=== PATIENT | male | born 1950 | race Caucasian/White ===

== ENCOUNTER 2024-12-16 20:36 | Inpatient (IN) | payer MEDICARE, OTHER, SELFPAY ==
[2024-12-16] VITALS (12 sets, daily range): BP systolic 125–158; BP diastolic 67–85; BMI 38.8; BMI 38.4
--- NOTE | 2024-12-16 17:56 | ED.GENMED ---
Addendum entered and electronically signed by João Larson DO 12/16/24 19:06:
Update reevaluation patient much improved, I first evaluated him work of breathing down, oxygenating well on a nonrebreather mental status appears improved, antibiotics and diuretic have been ordered
Original Note:
History of Present Illness
General
Chief Complaint: Breathing Problem
Source: patient and family
Exam Limitations: altered mental status
Time Seen by Provider: 12/16/24 17:53
Nursing documentation reviewed up to this point in time: agreed with
History of Present Illness
History of Present Illness:
74-year-old male shortness of breath onset unclear presents in extremis he was prior bypass surgery has lower extremity edema sats in the low 70s
6 PM daughter at bedside yesterday she got a call from her brother patient had some fever and chills shortness of breath yesterday, today she saw the patient she had a home pulse ox was in the 70s and appeared tired
s/p bypass surgery, may not have taken his lasix
Past History
Past History
ED Past Medical History: CAD
ED Past Surgical History: Cardiac
Family History
Family History: Unable to obtain
Review of Systems
Review of Systems
Unable to obtain full review of systems at this time due to: due to acuity
Phy Exam
Physical Exam
Physical Exam:
Physical Exam
General: 74-year-old male severe respiratory
Neck: No jaundice
Heart: Tachycardic mediastinal
Lungs: Tachypneic crackles
Abdomen: Nontender
Neuro: Globally weak
Skin: no rash
Psychiatric: Unable to assess
Extremities: Edema is present
Scores
Heart Failure Risk
Heart Failure Risk Score: Yes
History of Stroke or TIA: No
History of intubation for respiratory distress: No
Heart rate on ED arrival >/= 110: Yes
SaO2 <90% on arrival on room air: Yes
HR >/=110 during 3min walk test (or too ill to perform test): Yes
ECG has acute ischemic changes: No
Urea >/=12mmol/L (BUN 33.6mg/dL): No
Serum CO2>/=35mmol/L: No
Troponin I or T elevated to DC Level (0.4mg/dL): No
NT-proBNP >/=5,000ng/L (5,000pg/ml): Yes
HF Risk Score: 4
Admission Status: HIGH RISK 26.1% Consider SNF treatment or admission to hospital
Course
Orders/Labs/Results
Orders:
Orders
12/16/24 17:52
Electrocardiogram (*1) Urgent
Reason for Study: Shortness of Breath
Portable Chest Xray [CR Chest Portable - 1 View] Stat
Comment:
Reason For Exam: sob
Reason Study Needs to be Portable: Patient Unstable
12/16/24 17:53
EKG- Treatment ONCE
12/16/24 17:57
Arterial Blood Gas Urgent
%Oxygen/Room Air: 96%/15L non rebreather
Complete Blood Count/No Diff Urgent
Comprehensive Metabolic Panel Urgent
NT-proBNP Urgent
Troponin I Urgent
12/16/24 17:59
Bipap [RESP] Urgent
Patient to use own unit?: No
Inspiratory Pressure (cm H2O): 12
Expiratory Pressure (cm H2O): 5
12/16/24 18:03
COVID-19 Antigen Urgent
Source: Nasal Swab
12/16/24 18:04
Influenza A+B Rapid Molecular Urgent
[facility] Source: Nasal Swab
Specimen Description:
12/16/24 18:15
Blood Culture Q30M
[facility] Source: Blood/Venous
Specimen Description:
12/16/24 18:38
CefTRIAXone [Rocephin] 1,000 mg IV NOW STA
Ipratropium/Albuterol Sulfate [Duoneb] 3 ml INH R NOW ONE
12/16/24 18:45
Blood Culture Q30M
[facility]A Source: Blood/Venous
Specimen Description:
12/16/24 18:54
Furosemide [Lasix] 60 mg IV NOW STA
Abnormal Lab Results
12/16/24
17:57
RBC 4.06 L 10^6/uL
(4.70-6.10)
Hgb 11.7 L g/dL
(13.0-18.0)
Hct 34.7 L %
(39.0-52.0)
MPV 11.8 H fL
(7.4-10.4)
pH 7.33 L
(7.35-7.45)
pO2 156 H mmHg
(83-108)
HCO3 18.5 L mmol/L
(21-28)
ABG O2 Sat (Measured) 99.7 H %
(94-98)
Carbon Dioxide 20 L mmol/L
(22-30)
Glucose 317 H mg/dl
(70-99)
Troponin I 0.090 H* ng/ml
12/16/24 17:57
12/16/24 17:57
Vital Signs
Initial and Last Documented VS:
Initial Vital Signs
Pulse Resp BP Pulse Ox
104 43 158/85 75
12/16/24 17:54 12/16/24 17:54 12/16/24 17:54 12/16/24 17:54
Last Documented Vital Signs
Temp Pulse Resp BP Pulse Ox
99.3 F 92 34 134/75 97
12/16/24 18:02 12/16/24 18:45 12/16/24 18:45 12/16/24 18:45 12/16/24 18:45
MDM/Problems Addressed
Differential Diagnosis Includes:
Heart failure pulm anemia pneumonia PE pneumothorax
MDM/Problems Addressed:
Shortness of breath
Chronic conditions affecting care: CAD
Acute Exacerbation and/or Progression of Chronic Illness: CAD
*Body Work Auto Trimmer Interpretation
Rate: normal and tachycardiac
Interpretation: normal
Heart Rate: 118
Rhythm: sinus
*Critical Care Note
Total Time (30-74mins, 75-104mins- exclusive of procedures): 30
Update Note
Update Note:
645 patient proved with nonrebreather ABG noted labs are noted did report fever chills per family, cultures have been sent will start on ceftriaxone, proBNP noted will give a dose of diuretic,
ED Attending Note
-
Portions of this chart may have been created with voice recognition software.� Occasional wrong word or��sound alike� substitutions may have occurred due to the inherent limitations of voice recognition software.
Discharge Plan
Departure
Patient Disposition: Admit
Date of Disposition: 12/16/24
Time of Disposition: 18:55
Admit to: Telemetry
Presentation/result/management discussed w/ accepting MD/DO: Hospitalist
Patient with high blood pressure during this ER visit?: Yes
Condition: Fair
Covid-19: Negative COVID-19
Discharge Problem:
Acute hypoxic respiratory failure
Interventions
Interventions:
*General Assessment Last Done: 12/16/24 18:02
*ED- Fall Risk Assessment Last Done: 12/16/24 18:02
*ED COVID-19 Vaccine History Last Done: 12/16/24 18:02
ED- Cardiac Assessment Last Done: 12/16/24 18:09
ED- Pulmonary Assessment Last Done: 12/16/24 18:09
Discharge Date and Time
Print Language: YORUBA
--- NOTE | 2024-12-16 18:01 | EDRN ---
Dr. Larson in room w/ pt at this time.
[2024-12-16 18:15] LABS: Hematocrit 34.7 % (39.0-52.0); Hemoglobin 11.7 g/dL (13.0-18.0); Mean Corp Hgb Conc. 33.7 g/dL (33.0-37.0); Mean Corpuscular Hgb 28.8 pg (27.0-31.0); Mean Corpuscular Volume 85.5 fL (80.0-94.0); Mean Platelet Volume 11.8 fL (7.4-10.4); Platelet Count 206 10^3/uL (130-400); Red Blood Cell Count 4.06 10^6/uL (4.70-6.10); Red Cell Dist. Width 13.9 % (11.5-14.5); White Blood Cell Count 10.6 10^3/uL (4.8-10.8)
[2024-12-16 18:25] LABS: B.E. -6.7 mmol/L; HCO3 18.5 mmol/L (21-28); O2 Saturation % 99.7 % (94-98); PCO2 35 mmHg (35-48); PO2 156 mmHg (83-108); pH 7.33 (7.35-7.45)
--- NOTE | 2024-12-16 18:25 | EDRN ---
Daughter and granddaughter in room w/pt at this time.
[2024-12-16 18:36] LABS: ALT (SGPT) 22 U/L (0-50); AST (SGOT) 27 U/L (17-59); Albumin 4.7 g/dl (3.5-5.0); Alkaline Phosphatase 77 U/L (38-126); Blood Urea Nitrogen 19 mg/dl (9-20); Calcium 9.6 mg/dl (8.4-10.2); Carbon Dioxide 20 mmol/L (22-30); Chloride 99 mmol/L (98-107); Estimated Creatinine Clearance 73 ml/min; Glucose 317 mg/dl (70-99); Potassium 4.4 mmol/L (3.5-5.1); Sodium 135 mmol/L (135-145); Total Bilirubin 1.2 mg/dl (0.2-1.3); Total Protein 7.8 g/dl (6.3-8.2); eGFR > 60.00
--- NOTE | 2024-12-16 18:45 | EDRN ---
Pt moved from room #40 to room #26 at this time.
[2024-12-16 18:54] LABS: NT-proBNP 4660 pg/ml
--- NOTE | 2024-12-16 19:14 | HPS.HSE ---
Family Physician
-
Family Physician:
Chief Complaint
-
Shortness of breath
History of Present Illness
This is a 74-year-old who has a history of CAD status post CABG 13 years ago, diabetes not on insulin, hypertension, who presents to the emergency department with shortness of breath.
Patient reports that he has been having a cough for about 1 week. He reports the cough is minimally productive. He reported that he had a fever 1 day ago. He reports household members with been having coughs as well. He reported that he followed
up for a cough with his PMD this morning. He was started on antibiotics and cough medications. Upon arrival home his daughter noticed that he was completely out of breath with severe dyspnea on exertion and even unable to talk and was sent to the
emergency department.
Patient reports that he has chronic lower extremity edema which appears to have not changed recently. Is unable to tell me when I set any acute weight gain. He denies having any chest pain. Denies orthopnea or PND. He is a non-smoker and denies
any history of asthma or COPD.
He reports intermittent compliance with diuretics due to polyuria when he takes them.
In the emergency department he was febrile with a temp of 99.3, he was hypoxic and currently on 10 L nonrebreather satting 99%. Blood pressure was 134/70 with a pulse of 92 and x-ray. Rate is currently 26. ECG shows no acute ischemic changes with
normal sinus rhythm and sinus arrythmia. Initial troponin 0.09. BNP elevated at 4600. Xray with radiographic findings highly suggestive of interstitial pulmonary edema pattern. Bilateral interstitial pneumonia is a differential consideration, but
felt to be less likely. Current ABG with mild metabolic acidosis
Medical History
Past Medical History
Past Medical History: Reports HTN, Hypercholesterolemia and NIDDM
Additional Past Medical History:
CAD status post CABG
Past Surgical History: Reports Cardiac (CABG)
Social History
Tobacco: Non-smoker
Alcohol: Occasional
Drug: None
Personal: Single
Living: With Family
Employment: Retired
Family History
Family History: Not pertinent
Allergies / Home Medications
Allergies reflects when Allergies were last updated in [employer].
Home Medications with original date entered in [employer]
Allergy/Medication List:
Allergies
Allergy/AdvReac Type Severity Reaction Status Date / Time
No Known Allergies Allergy Verified 12/16/24 17:54
Review of Systems
-
History Source: Patient
Constitutional: Reports Fever
EENT: Reports No Symptoms
Respiratory: Reports Trouble Breathing
Cardiac: Reports No Symptoms
Abdomen/GI: Reports No Symptoms
: Reports No Symptoms
Musculoskeletal: Reports No Symptoms
Skin: Reports No Symptoms
Neurological: Reports No Symptoms
Endocrine: Reports No Symptoms
Hematologic/Lymphatic: Reports No Symptoms
Psych: Reports No Symptoms
Physical Exam
Vital Signs
Vital Signs
Temp Pulse Resp BP Pulse Ox
99.3 F 92 34 134/75 97
12/16/24 18:02 12/16/24 18:45 12/16/24 18:45 12/16/24 18:45 12/16/24 18:45
Physical Exam
General: Well Developed, Well Nourished, No Apparent Distress and Comfortable
HEENT: NormoCephalic, Anicteric, Moist mucous membranes and Atraumatic
Respiratory: Crackles
Cardiac: S1/S2 and Regular Rhythm
Breast: Deferred by me
GI: Soft, Non Tender and Normal Bowel Sounds
Rectal: Deferred by Provider
Genito-urinary: Deferred by me
Musculoskeletal: No Clubbing, No Cyanosis, Edema, Left Lower Extremity and Edema, Right Lower Extremity
Skin: Warm
Neuro: AO x 3 and Nonfocal/grossly intact
Hematologic/Lymphatic: No Lymphadenopathy
Psych: Calm
Laboratory Results
-
12/16/24 17:57
12/16/24 17:57
Laboratory Results
pH 7.33 (7.35-7.45) L 12/16/24 17:57
pCO2 35 mmHg (35-48) 12/16/24 17:57
pO2 156 mmHg (83-108) H 12/16/24 17:57
HCO3 18.5 mmol/L (21-28) L 12/16/24 17:57
Total Bilirubin 1.2 mg/dl (0.2-1.3) 12/16/24 17:57
AST 27 U/L (17-59) 12/16/24 17:57
ALT 22 U/L (0-50) 12/16/24 17:57
Alkaline Phosphatase 77 U/L (38-126) 12/16/24 17:57
Troponin I 0.090 ng/ml H* 12/16/24 17:57
Data Reviewed
-
Diagnostic Radiology: Image Personally Visualized and interpreted and Report Reviewed by me
Medical Tests (Nuc Med, Echo, EKG etc): Image Personally Visualized and interpreted
Lab Data: Labs Reviewed by me
Old Records: Reviewed
Impression/Plan
-
IMPRESSION:
74-year-old with past medical history significant for CAD status post CABG, CHF, hypertension hyperlipidemia and usb-wpktqdu-xrbjeowlf diabetes who has had a cough for about 1 week and presented emergency department with acute shortness of breath
and dyspnea on exertion with hypoxia requiring nonrebreather at this time. X-ray shows bilateral infiltrates consistent with interstitial pulmonary edema. He has bilateral lower extremity swelling, BNP is elevated at 4887 troponin 0.09 without any
acute ischemia on ECG. ABG shows a blood gas of 7.33/33/18. Suspect pneumonia complicated by acute on chronic CHF.
PLAN:
1. Possible PNA - Cough x 1 week which could be from CHF but reports a fever yesterday and low grade temps here. Denies recent admissions to the hospital
- admit to IMU due to O2 requirements, titrate to midflow as tolerated
- blood cultures sent
- covid/flu pending
- IV ceftriaxone/azithromycin appropriate for now
- cough suppression and nebs prn
2. CHF - Interstitial edema, weight gain, peripheral edema. Non-compliance with lasix 40 daily. Says had w/u at [facility] by Dr. Shannon with echo and stress. Says there is some reduced flow but stress was non-ischemic
- telemetry
- cycle enzymes as below
- lasix 60 iv given in ED,
- continue lasix 40 iv bid
- daily weights and i/os
- will hold lisinopril pending stable bp
- continue bblockade
- echo in am to eval valves
- cardiology consult
3. Trop elevation - NIMI suspected, h/o CAD s/p CABG no stents. On plavix.
- asa 324 x 1 now
- continue plavix and statin
- cycle enzymes, started heparin gtt for elevation, remain w/o chest pain
4. DM II -
- hold metformin
- continue glimepride
- sliding scale insulin
- a1c
DVT PPX - heparin gtt
Code status - Full Code
[2024-12-16] MEDS: LASIX 60 MG IV (19:24)
[2024-12-16] MEDS: ROCEPHIN 1000 MG IV (19:24)
[2024-12-16] MEDS: DUONEB 3 ML INH (19:26)
[2024-12-16 19:50] LABS: COVID-19 Antigen Negative (Negative)
[2024-12-16] MEDS: ZITHROMAX INFUSION 250 IV (19:52)
[2024-12-16] MEDS: ZAROXOLYN 5 MG PO (23:36)
[2024-12-16 23:41] LABS: Glucose - Point of Care 276 mg/dl (70-99)
[2024-12-16] MEDS: LIPITOR 40 MG PO (23:42)
[2024-12-17] VITALS (13 sets, daily range): BP systolic 115–149; BP diastolic 65–86; BMI 37.8
[2024-12-17] MEDS: LASIX 60 MG IV (01:08)
[2024-12-17 01:50] LABS: APTT 36.2 Sec (23.4-35.0)
[2024-12-17 02:05] LABS: Hematocrit 27.8 % (39.0-52.0); Hemoglobin 9.6 g/dL (13.0-18.0); Mean Corp Hgb Conc. 34.5 g/dL (33.0-37.0); Mean Corpuscular Hgb 28.8 pg (27.0-31.0); Mean Corpuscular Volume 83.5 fL (80.0-94.0); Mean Platelet Volume 11.4 fL (7.4-10.4); Platelet Count 141 10^3/uL (130-400); Red Blood Cell Count 3.33 10^6/uL (4.70-6.10); Red Cell Dist. Width 13.9 % (11.5-14.5); White Blood Cell Count 6.8 10^3/uL (4.8-10.8)
[2024-12-17] MEDS: HEPARIN 25000 UNITS/250 ML IV ×2 (02:28→23:54)
--- NOTE | 2024-12-17 02:40 | PTCARENOTE ---
Rec'd pt from ED RN with only NRB in place. RT placed pt on 15L MF upon admit to this unit. Pt reports work of breathing is much improved from prior, however continues with tachypnea. O2 titrated to 13L, pt 96%. Trop increased from previous, FOREST FI[employer] MANAGEMENT OFFICER
notified. STAT dose IV lasix given per NOV. Heparin gtt started per NOV. Call mckinney within reach. Care ongoing.
[2024-12-17 06:03] LABS: Blood Urea Nitrogen 22 mg/dl (9-20); Calcium 9.4 mg/dl (8.4-10.2); Carbon Dioxide 27 mmol/L (22-30); Chloride 101 mmol/L (98-107); Estimated Creatinine Clearance 79 ml/min; Glucose 179 mg/dl (70-99); HDL Cholesterol 47 mg/dl; LDL Cholesterol, Calculated 81 mg/dl; Magnesium 1.3 mg/dl (1.6-2.3); Phosphorus 3.7 mg/dl (2.5-4.5); Potassium 3.6 mmol/L (3.5-5.1); Sodium 139 mmol/L (135-145); Total Cholesterol 162 mg/dl (50-199); Triglyceride 170 mg/dl (10-149); Very Low Density Lipoprotein 34 mg/dl (0-30); eGFR > 60.00
[2024-12-17] MEDS: ASPIRIN 325 MG PO (06:46)
[2024-12-17] MEDS: MAGNESIUM SULFATE 102 GRAMS IV (06:46)
[2024-12-17 06:50] LABS: Hepatitis C Antibody Negative (Negative)
--- NOTE | 2024-12-17 08:07 | CON.CAR ---
Addendum entered and electronically signed by John Paul Hough MD 12/17/24 11:41:
I saw and examined the patient.
The BATTER MIXER HELPER's note was reviewed and I agree with the note.
Comment: 72-year-old male (known to Dr. Shannon, his primary vocal artist), with CAD (prior CABG), HTN, HLD, NIDDM, and presumed heart failure, who presented to the emergency department the chief complaint of shortness of breath. Began suddenly in
the last 1 to 2 days. He does report he had a low-grade temp and there are 3 sick contacts at home so he assumed he had a virus. He was found to be acutely hypoxic on arrival. He is now feeling better, continued on oxygen through the nasal
cannula, but still with consistent coughing and shortness of breath. He denies any chest pain but never had chest pain prior to even his CABG. He reports recent testing with his outpatient vocal artist in September. He thinks he was told he would
need possible intervention. He is not aware of a low ejection fraction or even of the term. On exam, he is in moderate respiratory distress when asked to take deep breaths. He coughs extensively with rhonchi and rales diffusely bilaterally.
Regular rate and rhythm normal S1-S2. Abdomen is obese. 1+ pitting edema up to the mid calf. On my review, chest x-ray shows diffuse interstitial pulmonary edema. EKG showed sinus tachycardia with PVCs ST changes inferolaterally aVR is up. No
prior for comparison. Today's EKG shows sinus rhythm with sinus arrhythmia, ST depressions are improved. Slight nonspecific changes persist. Prolonged QTc at seen. Echocardiogram shows mildly reduced left ventricular ejection fraction of 45 to
60%. Hypokinesis of the basal to mid septal, inferior and mid to distal inferolateral bernstein. Stage II diastolic dysfunction with mild pulmonary hypertension. Labs are notable for troponin up to 16.5 which is the peak. Hemoglobin 11.7 on
admission now 9.6 repeat 9.8. Assessment: Acute hypoxic respiratory failure in the setting of heart failure with mildly reduced ejection fraction. Acute coronary syndrome. Acute on chronic anemia. Coronary artery disease status post CABG.
Possible viral pna but flu and COVID negative. Plan: Continue with IV diuresis. This will need intensive monitoring. Continue metoprolol, TESS inhibitor and Nitropaste. Will plan for cardiac cath tomorrow with R/C as he is unable to lie flat
currently. Hgb repeated and stable and he is pale but this appears chronic. Will ask CM to roberts Entresto and SGLT 2i. Will request recent records from [facility].
D/w Dr Drew. Patient is agreeable to cath tomorrow
Original Note:
Consultation
Consultation Request
Date/Time Consultation Requested: 12/17/2024 02:10
Date/Time Consultation Performed: 12/17/2024 08:00
Requesting Provider: Dr. Dowd
Performing Provider: RICHELLE Cartagena for Dr. Hough
Reason for Consultation: NSTEMI, Heart failure
Medical History
-
Chief Complaint: Shortness of breath
History of Present Illness:
João Collier is a 72-year-old male (known to Dr. Shannon, his primary vocal artist), with CAD (prior CABG), HTN, HLD, NIDDM, and presumed heart failure, who presented to the emergency department the chief complaint of shortness of breath.
Yesterday, he saw his PCP and endorsed low-grade temp along with cough and congestion and was given a prescriptions for antibiotics. He quickly deteriorated at home. He was found to have an SpO2 less than 70% by his daughter. Initially he did not
want to present to the emergency room but continued to decompensate and was agreeable. In triage, he was found to have an SpO2 of 75% on room air. He has been admitted for acute hypoxic respiratory failure. Chest x-ray suggestive of interstitial
pulmonary edema. He was negative for COVID-19 and influenza. His initial troponin was 0.090 on arrival along with a proBNP of 4660. At approximately 5 AM this morning it was 16.500. EKG with lateral ST abnormalities. He has no chest pain.
Prior to his CABG he was asymptomatic. He had 'abnormal tests' and was found to need bypass. He is on the hospitalist service and cardiology was consulted for heart failure management.
Past Medical History
Past Medical History: CAD, HTN, Hypercholesterolemia and NIDDM
Past Surgical History: Cardiac (CABG)
Social History
Tobacco: Non-Smoker
Alcohol: None
Drug: None
Living: With Family (Son)
Employment: Retired
Family History
Family History: Reviewed & Not Pertinent
Allergies / Home Medications
Allergy/AdvReac Type Severity Reaction Status Date / Time
No Known Allergies Allergy Verified 12/16/24 17:54
�Medication �Instructions �Recorded �Confirmed �Type
acetaminophen 500 mg tablet 1,000 mg PO Q6HPRN PRN mild pain 12/16/24 12/16/24 History
(Tylenol Extra Strength)
amlodipine 5 mg tablet 5 mg PO DAILY 12/16/24 12/16/24 History
atorvastatin 40 mg tablet 40 mg PO HS 12/16/24 12/16/24 History
clopidogrel 75 mg tablet 75 mg PO DAILY 12/16/24 12/16/24 History
fenofibric acid 35 mg tablet 35 mg PO DAILY 12/16/24 12/16/24 History
finasteride 5 mg tablet 5 mg PO DAILY 12/16/24 12/16/24 History
furosemide 40 mg tablet 40 mg PO DAILY 12/16/24 12/16/24 History
glimepiride 4 mg tablet 4 mg PO BID 12/16/24 12/16/24 History
isosorbide mononitrate 60 mg 60 mg PO DAILY 12/16/24 12/16/24 History
tablet,extended release 24 hr
lisinopril 10 mg tablet 10 mg PO DAILY 12/16/24 12/16/24 History
meloxicam 15 mg tablet 15 mg PO DAILY 12/16/24 12/16/24 History
metformin 1,000 mg tablet 1,000 mg PO BID 12/16/24 12/16/24 History
metoprolol succinate 100 mg 100 mg PO DAILY 12/16/24 12/16/24 History
tablet,extended release 24 hr
oxybutynin chloride 10 mg 10 mg PO DAILY 12/16/24 12/16/24 History
tablet,extended release 24 hr
pioglitazone 30 mg tablet 30 mg PO DAILY 12/16/24 12/16/24 History
semaglutide 0.25 mg or 0.5 mg (2 0.5 mg SC WE 12/16/24 12/16/24 History
mg/3 mL) subcutaneous pen injector
(Ozempic)
sertraline 100 mg tablet 100 mg PO DAILY 12/16/24 12/16/24 History
tamsulosin 0.4 mg capsule 0.4 mg PO DAILY 12/16/24 12/16/24 History
Review of Systems
-
History Source: Patient
All other systems: Negative unless noted
Constitutional: No Symptoms
EENT: No Symptoms
Respiratory: Trouble Breathing
Cardiac: No Symptoms
Abdomen/GI: No Symptoms
: No Symptoms
Musculoskeletal: No Symptoms
Skin: No Symptoms
Neurological: No Symptoms
Endocrine: No Symptoms
Hematologic/Lymphatic: No Symptoms
Physical Exam
Vital Signs
Temp Pulse Resp BP Pulse Ox
99.2 F 97 26 149/82 95
12/17/24 04:50 12/17/24 06:00 12/17/24 06:00 12/17/24 04:00 12/17/24 06:04
Lab Results
12/17/24 01:12
12/17/24 05:15
Troponin I 16.500 ng/ml H* D 12/17/24 05:15
Udh-W-Huquudhunxp Pept 4660 pg/ml 12/16/24 17:57
Physical Exam
General: Well Developed, Well Nourished, No Apparent Distress and Comfortable
HEENT: Normocephalic, Anicteric and Moist Mucous Membranes
Respiratory: Crackles and Accessory Resp Muscle Use
Cardiac: S1/S2, Regular Rhythm and Peripheral Edema
Breast: Deferred by me
GI: Soft, Non Tender, Non Distended and Normal Bowel Sounds
Rectal: Deferred by Provider
Genito-urinary: No Costovertebral Tender
Musculoskeletal: No Clubbing, No Cyanosis and No Edema
Skin: Warm and Dry
Neuro: AO x 3
Hematologic/Lymphatic: No Lymphadenopathy
Psych: Calm
Impression / Plan
-
I/P: 74M with CAD (prior CABG), HTN, HLD, NIDDM, and presumed heart failure, presented with shortness of breath and hypoxia.
Outpatient vocal artist: Dr. Shannon
Acute hypoxic respiratory failure
-He is requiring 10 L nasal cannula mid flow, improved from 15L overnight
-Negative: COVID-19, influenza
-CXR appears to be pulmonary edema
Heart failure, presumed HFpEF, acute on chronic
-Diuresis with furosemide 40 mg IV twice daily, this requires intensive monitoring, question of adherence at home
-Consider SGLT2i
-Trend daily weight, I/O, and BMP with diuresis
-Heart failure education
NSTEMI
-Chest pain-free
-ASA 324 mg given in ER, continue 81 mg daily
-Continue heparin drip, he received a bolus in the emergency department
-Lateral EKG changes with a troponin of 16
-Urgent echocardiogram being arranged
CAD
-Never had anginal symptoms, prior CABG grafts unknown
-Continue medical therapy and risk factor modification
Hypertension
-Multidrug hypertension, home amlodipine on hold
Anemia - H&H repeat
HLD, LDL above goal on atorvastatin, possible nonadherence
NIDDM, HgbA1c pending, per primary service
Obesity, on Ozempic in the outpatient setting
Data Reviewed
-
EKG: Report Reviewed by me
Radiology: Report Reviewed by me
Labs: Labs Reviewed by me
Old Records: Requested
--- NOTE | 2024-12-17 08:42 | W.PN.HOSP.TC ---
Addendum entered and electronically signed by Yair Drew MD 12/17/24 14:57:
Seen and examined by me independently in collaboration with the medical staff physician Dr. Hammond.
Lab data and imaging data reviewed.
Addendum as below :
Patient admitted with acute hypoxic respiratory failure in the setting of acute heart failure and non-ST elevation HI. Patient without chest pain but had progressive shortness of breath. Without any acute respiratory distress. On nasal cannula.
Bilateral occasional wheeze with basilar crackles. Bilateral lower extremity edema 2+ noted. Patient with a history of CAD status post CABG. Apparently recent stress test in September of this year was abnormal and was due to get further testing.
Continue with IV heparin and IV Lasix. Appreciate cardiology input.
Afebrile and normal white count but procalcitonin is elevated. Pt has symptoms of URTI recently and was started on abx as OP. Flu and COVID neg.Currently his symptom is more of left facial pain. Says he lost part of 2-3 teeth on left upper teeth.
His teeth has been thinning out lately. Left mid maxillary area tenderness noted. Teeth 12 fractured it looks like with no crown. Mild halitosis. Mild thickening of the gum around. Will narrow abx to Unasyn. OMFS consulted -recommends OP follow
up.Clinically doubt pneumonia. No focal consolidation.
Total time spent on today's encounter was 52 minutes which included time spent in counseling the patient/family regarding diagnosis and treatment plan as listed above, goals of care, and symptom management. Case was discussed with nursing staff,
specialists, and care coordinators/case management. All labs and imaging personally reviewed by me. Remainder the time spent in detailed review of previous records, lab data, imaging, and other medical provider documentation.
Original Note:
Today's Communication/Plan
-
Continue heparin, continue monitoring heart rhythm and rate. Continue antibiotics. Will continue IV Lasix.
Assessment / Plan
Assessment / Plan
Assessment:
74-year-old male with a past medical history of CAD status post CABG 13 years ago, bjn-uqzntpi-wdjyxouwd diabetes, hypertension presented to the [facility] emergency department on 12/16/2024 due to recent increased shortness of breath.
Patient has been having worsening cough for about a week and reported having a fever a day ago. Yesterday patient had gone to his primary care doctor for evaluation of his recent upper respiratory symptoms and was started on antibiotics. When he
got home patient's daughter noticed that he was very short of breath and took him to the emergency department. In the emergency department he had fever with a temperature of 99.3, markedly hypoxic and was started on oxygen supplementation with 10 L
of oxygen. Patient's ECG showed sinus tachycardia with PVCs, ST changes inferolaterally. However patient's troponin levels continue to increase. Chest x-ray done in the ED showed marked pulmonary edema. Cardiology was consulted and patient was
started on IV Lasix. Patient was admitted to the IMU for further management as he required increased supplemental oxygen. Patient underwent echocardiogram which showed mild reduction in systolic function.
Chest X-Ray (12/16/2024):
Cardiac silhouette size appears enlarged. Diffusely increased interstitial markings with indistinctness of the central pulmonary vasculature. Radiographic findings are highly suggestive of interstitial edema pattern, most likely on the basis of
congestive heart failure.
Differential consideration of bilateral interstitial pneumonia, felt to be less likely.
Mildly reduced left ventricular systolic function. LV ejection fraction is 45-
50% by visual estimate.
Hypokinesis of the basal to mid septal, inferior and mid to distal
inferolateral wall.
Stage II diastolic dysfunction suggestive of abnormal relaxation and increased
filling pressures.
Mild pulmonary hypertension.
No prior study available for comparison.
Plan:
# Acute hypoxic respiratory failure secondary to heart failure with mildly reduced ejection fraction
-Chest x-ray showed interstitial edema, recent weight gain and peripheral edema along with noncompliance with his Lasix 40mg daily
-BNP elevated at 4887
-Echo as above
-Cardiology consulted, input appreciated
-Continue IV Lasix 40 mg twice daily
-Daily weights and I/O's
-Continue lisinopril
-Continue metoprolol XL 100 mg
-Continue pioglitazone
-Supplemental oxygen as needed, will try to wean off as possible
# Possible pneumonia due to recent upper respiratory symptoms
-Had a low-grade temperature in the ED, also reported fever yesterday
-Blood cultures were sent, pending
-COVID-negative, flu negative
-Antibiotics continue until cultures come back
-No leukocytosis, less likely pneumonia
-Cough suppression and nebs as needed
# Elevated troponins possibly secondary to coronary artery disease
-Continue to trend upwards, latest reading was 16.5
-Patient on Plavix, given dose of aspirin 325
-Placed on heparin drip
-No chest pain
-Cardiology consulted, input appreciated
-Plan for cardiac cath tomorrow
-Will continue metoprolol, TESS inhibitor and nitroglycerin paste as per cardiology
-LDL cholesterol 81, triglycerides a bit elevated at 170
-Continue trending troponins
# Fql-rynixsq-xhgrhiikv diabetes type 2
-Continue glimepiride, holding metformin still
-Sliding scale insulin, Accu-Cheks
-HbA1c Pending
# Hypomagnesemia
-Repleted
-Monitor and replete as necessary
Full code
DVT prophylaxis: Heparin GTT
Anticipated Discharge: > 48 hours
Subjective/Interval History
-
Date of Service: December 17, 2024
Patient says that he is feeling a bit worse from yesterday. Continues to require supplemental oxygen, 10 L at the moment. Overall not feeling so well, reports no chest pain at this time. Does report shortness of breath. Does not report any fever
or chills since being in the hospital.
Objective Data
-
Labs:
Laboratory Results
12/17/24 12/17/24 12/17/24
01:12 05:15 08:30
WBC 6.8
Hgb 9.6 L
Hct 27.8 L
Plt Count 141 D
APTT 36.2 H Pending
Sodium 139
Potassium 3.6
Chloride 101
Carbon Dioxide 27
BUN 22 H
Creatinine 1.0
Glucose 179 H
Calcium 9.4
Vital Signs:
Vital Signs
Temp Pulse Resp BP Pulse Ox
99.2 F 97 26 149/82 95
12/17/24 04:50 12/17/24 06:00 12/17/24 06:00 12/17/24 04:00 12/17/24 06:04
I&O
12/16/24 12/17/24 12/18/24
06:59 06:59 06:59
Output Total 1600 / 1600
Balance -1600 / -1600
Review of Systems
-
History Source: Patient
Constitutional: Denies Fever or Chills
EENT: Reports No Symptoms Reported
Respiratory: Reports Cough, Trouble Breathing and Wheezing
Cardiac: Denies Chest Pain, Palpitations or Syncope
Abdomen/GI: Denies Abdominal Pain, Nausea or Vomiting
Genitourinary: Reports No Symptoms
Musculoskeletal: Reports Edema (Bilateral lower extremity edema)
Skin: Reports No Symptoms
Neuro: Reports No Symptoms
Physical Exam
-
General: Well Developed, Well Nourished, Respiratory Distress, Appears in Distress and Conversant
HEENT: Normocephalic, Atraumatic and Oxygen (Requiring 10 L of mid flow)
Respiratory: Crackles and Non Labored Respirations
Cardiac: S1/S2, Irregular Rhythm and Tachycardic
GI: Soft, Nontender and Nondistended
Musculoskeletal: Edema, Right Lower Extrem (Trace edema) and Edema, Left Lower Extrem (Trace edema)
Skin: Warm
Neuro: Awake, Alert, Oriented and AO x 3
Psych: Calm
Data Reviewed
-
Medical Tests (Nuc Med, Echo etc): Report Reviewed by me, Discussed with Physician, Discussed with Nurse and Discussed with Patient
Labs: Labs Reviewed by me, Discussed with Physician, Discussed with Nurse and Discussed with Patient
[2024-12-17 08:48] LABS: Glucose - Point of Care 180 mg/dl (70-99)
[2024-12-17] MEDS: NOVOLOG FLEXPEN-LOW RESISTANCE 1 UNITS SC (09:05)
[2024-12-17] MEDS: PLAVIX 75 MG PO (09:05)
[2024-12-17] MEDS: LASIX 40 MG IV ×2 (09:05→16:59)
[2024-12-17] MEDS: DITROPAN 5 MG PO ×2 (09:06→19:42)
[2024-12-17] MEDS: TOPROL XL 100 MG PO (09:07)
[2024-12-17] MEDS: FLOMAX 0.4 MG PO (09:07)
[2024-12-17] MEDS: PROSCAR 5 MG PO (09:07)
[2024-12-17] MEDS: ZESTRIL PO (09:09)
[2024-12-17] MEDS: ACTOS PO (09:10)
[2024-12-17] MEDS: AMARYL PO (09:10)
[2024-12-17] MEDS: TRICOR 48 MG PO (09:16)
--- NOTE | 2024-12-17 09:32 | CARDSERVLU ---
Echocardiogram with Lumason completed after protocol screening completed. Allergies verified.
Patent IV site: __RAC___
IV site flushed with 0.9% NaCl pre and post administration.
Diluted bolus method utilized to enhance visualization of ventricular bernstein.
Total volume given: ___2_ mL
Patient tolerated all procedures well without complications.
[2024-12-17 09:55] LABS: APTT 36.8 Sec (23.4-35.0)
[2024-12-17 10:12] LABS: Procalcitonin 0.72 ng/ml (0.0-0.25)
[2024-12-17 10:41] LABS: Glycohemoglobin (HgbA1c) 6.5 % (4.0-5.6)
[2024-12-17] MEDS: NITRO-BID 0.5 INCH TOPICAL ×3 (10:54→23:07)
[2024-12-17 11:18] LABS: Hematocrit 28.6 % (39.0-52.0); Hemoglobin 9.8 g/dL (13.0-18.0)
--- NOTE | 2024-12-17 12:08 | PTCARENOTE ---
Received this am, AAOx3, denies pain. Lungs diminished throughout, +productive cough/ yellow sputum, ROYAL / rest with talking. Using urinal with increased exertion. IV Lasix administered and placed 25 condom cath for energy conservation. Stat
labs completed, PCXR, ECHO as well. IV Heparin gtt infusing per protocol. NTP placed RCW. Kept NPO until seen by providers- now able to eat. Son at bedside, updated family on poc.
[2024-12-17 12:33] LABS: Glucose - Point of Care 225 mg/dl (70-99)
[2024-12-17] MEDS: NOVOLOG FLEXPEN-LOW RESISTANCE 2 UNITS SC (13:34)
--- NOTE | 2024-12-17 13:36 | CM ---
Patient with Dx CHF, NSTEMI. O2 9L---> 4L today. Receiving IV Abx, IV Lasix, Heparin gtt. Plan cardiac cath tomorrow.
Met with patient who resides with his son, son's girlfriend and her 5 children, 1 grand-child, in a 1 story house with no outside steps.
The patient was independent in ADLs and ambulation without using an assistive device.
DME - [facility]
PCP - Abdifatah Parker
Pharmacy - [facility], [place] [place], [place]
Patient agrees to VN for SN for HF education and chooses [facility] - referral placed.
CM Consult: Roberts checks Entresto, Farxiga & Jardiance
Per Dr Hough only need to check Entresto & Farxiga
E-scripts sent to pharmacy.
Spoke with pharmacist, [facility]; roberts for Farxiga $115.85/month and Entresto $136.21/month. Patient is not eligible for Free Month or Copay cards under his Part D plan.
Spoke with patient about cost of meds: Mr Collier is declining both Farxiga and Entresto due to cost. His current meds are already > $500/month. Provided drug prices as per pharmacist at his [facility]: Farxiga $115.85/month and Entresto $136.21/month.
Patient says he was already aware he is not eligible for Free Month or Copay cards.
Eileen Hough & Rajendra made aware patient declining both Farxiga and Entresto due to cost.
Plan follow up with [facility] for acceptance.
Plan watch for home O2 needs.
[2024-12-17] MEDS: AMARYL 4 MG PO (17:03)
[2024-12-17] MEDS: UNASYN IV ×2 (17:03→21:05)
[2024-12-17 17:08] LABS: APTT 37.9 Sec (23.4-35.0)
[2024-12-17 17:45] LABS: Glucose - Point of Care 302 mg/dl (70-99)
[2024-12-17] MEDS: NOVOLOG FLEXPEN-LOW RESISTANCE 4 UNITS SC (18:01)
--- NOTE | 2024-12-17 19:08 | PTCARENOTE ---
Weaned to 5L maintaining sao2 95%. Rhythm unchanged on tele SR/SA. Remains on IV Heparin- subtherapeutic- increased per protocol. Urine output >2500ml this shift via condom cath. Feels much better this pm- less dyspneic and his overall coloring
improved to pink from pale. Family updated.
[2024-12-17] MEDS: ROBITUSSIN 100 MG PO (20:01)
[2024-12-17] MEDS: LIPITOR 40 MG PO (21:03)
[2024-12-17 21:37] LABS: Glucose - Point of Care 262 mg/dl (70-99)
--- NOTE | 2024-12-17 22:40 | PTCARENOTE ---
Care continues. Heparin gtt maintained per protocols. Maintained on supplemental O2. Denies complaints at this time. CC remains in place for frequency. PRN cough medicine given with relief. Call mckinney within reach.
[2024-12-17 23:38] LABS: APTT 44.8 Sec (23.4-35.0)
[2024-12-18] VITALS (26 sets, daily range): BP systolic 95–147; BP diastolic 56–82; BMI 36.7
[2024-12-18] MEDS: UNASYN IV (03:33)
[2024-12-18] MEDS: TYLENOL 650 MG PO ×3 (03:48→21:56)
[2024-12-18] MEDS: ROBITUSSIN 100 MG PO ×3 (03:49→14:47)
--- NOTE | 2024-12-18 05:28 | PTCARENOTE ---
Pt c/o L jaw, hand and b/l foot pain. Treated with tylenol per NOV. Continues to deny chest pain.
[2024-12-18] MEDS: NITRO-BID 0.5 INCH TOPICAL ×3 (05:38→17:03)
--- NOTE | 2024-12-18 06:43 | PTCARENOTE ---
Pt with brief episode of desat to 85% on 4L while sleeping. O2 returned to 98% when woken up from sleep. Maintained on 4L
[2024-12-18 06:48] LABS: Blood Urea Nitrogen 32 mg/dl (9-20); Calcium 9.4 mg/dl (8.4-10.2); Carbon Dioxide 33 mmol/L (22-30); Chloride 98 mmol/L (98-107); Estimated Creatinine Clearance 78 ml/min; Glucose 150 mg/dl (70-99); Potassium 3.2 mmol/L (3.5-5.1); Sodium 138 mmol/L (135-145); eGFR > 60.00
--- NOTE | 2024-12-18 08:03 | W.PN.CD ---
Today's Communication / Plan
-
Cardiac catheterization today.
Further medication titration following this procedure.
Anemia workup.
Impression / Plan
-
Impression/Plan: 74M with CAD (prior CABG), HTN, HLD and NIDDM admitted with NSTEMI and new HFmEF (LVEF 45-50%).
#Hypoxic respiratory failure
-Acute, improving.
-He is requiring 4 L nasal cannula mid flow.
-SARS-CoV-2 negative, influenza negative.
-CXR shows pulmonary edema, but also an opacity in the suprahilar right upper lobe. This will need CT evaluation and follow up as there is concern for potential malignancy.
#HFmEF
-Acute, threat to life, requires intensive monitoring.
-LVEF 40-50%.
-Continue diuresis with furosemide 40 mg IV twice daily.
-There is a question of adherence at home.
-Daily weights.
-Replace K+. Goal K > 4, Mg > 2, Ca > 8 and PO4 > 2.5.
-GDMT as hemodynamics will tolerate. SGLT2i and ARNi are cost prohibitive.
-Discontinue amlodipine.
-Continue metoprolol and lisinopril. Start spironolactone 12.5 mg daily after cardiac catheterization.
#NSTEMI/CAD
-Acute, threat to life.
-History of CAD s/p CABG (he reports 5 jumps, unknown anatomy, but they did use a left radial graft).
-Chest pain-free.
-Troponin peaked at 16.4.
-ASA 324 mg given in ER, continue 81 mg daily.
-OMT/GDMT as hemodynamics will tolerate.
-Cardiac catheterization today.
#Hypertension
-Chronic, multidrug, stable.
-Home amlodipine on hold.
#Anemia
-Unknown duration.
-Normal MCV.
-Check Fe studies, B12, folate, thiamine, reticulocyte count/index, heme-occult.
#HLD
-Chronic, stable.
-Total cholesterol = 162, LDL = 81, HDL = 47, Triglycerides = 170.
-LDL above goal on atorvastatin, possible nonadherence.
-Goal LDL < 55, Triglycerides < 150.
#NIDDM
-Chronic, stable.
-HgbA1c 6.5%.
-Management per primary service.
-Patient will continue to benefit from GLP-1 analog.
#Obesity
-Chronic.
-Semaglutide as noted.
Outpatient customer service manager: Dr. Shannon
Subjective/Interval History:
Oxygen reduced to 4LNC overnight. Brief hypoxia while sleeping.
Weight down 3.4 kg from yesterday (109.5 --> 106.1).
Hbg down to 9.8, stable from 11.7.
K+ down to 3.2.
DATA:
Echocardiogram, 12/17/2024:
CONCLUSIONS
Mildly reduced left ventricular systolic function. LV ejection fraction is 45-
50% by visual estimate.
Hypokinesis of the basal to mid septal, inferior and mid to distal
inferolateral wall.
Stage II diastolic dysfunction suggestive of abnormal relaxation and increased
filling pressures.
Mild pulmonary hypertension.
No prior study available for comparison.
CXR, 12/17/2024:
IMPRESSION:
1. MILD ACUTE INTERSTITIAL and ALVEOLAR CARDIOGENIC PULMONARY EDEMA.
2. Mild cardiomegaly.
3. Previous CABG surgery.
4. 3.8 cm asymmetric opacity in the suprahilar right upper lobe. Diagnostic possibilities are (1) right upper lobe lung cancer, (2) asymmetric pulmonary edema, or (3) infectious or inflammatory pneumonitis.
Physical Exam
Vital Signs/Labs
Vital Signs
Temp Pulse Resp BP Pulse Ox
36.3 C 77 25 144/75 85
12/18/24 07:49 12/18/24 06:00 12/18/24 06:00 12/18/24 06:00 12/18/24 06:00
12/16/24 12/17/24 12/18/24
11:59 11:59 11:59
Actual Weight 109.5 kg 106.1 kg
12/17/24 11:09
12/18/24 06:08
APTT 55.0 Sec (23.4-35.0) H 12/18/24 06:08
Magnesium 1.3 mg/dl (1.6-2.3) L 12/17/24 05:15
Triglycerides 170 mg/dl (10-149) H 12/17/24 05:15
LDL Cholesterol, Calc 81 mg/dl 12/17/24 05:15
VLDL Cholesterol, Calc 34 mg/dl (0-30) H 12/17/24 05:15
HDL Cholesterol 47 mg/dl 12/17/24 05:15
12/16/24
17:57
Ika-E-Loshxbeumzj Pept 4660
LAB Results
12/16/24 12/16/24 12/17/24
17:57 23:29 05:15
Troponin I 0.090 H* 6.580 H* D 16.500 H* D
12/17/24 12/17/24
09:33 16:45
Troponin I 16.000 H* 13.500 H*
Physical Exam
Constitutional: No acute distress and Comfortable
EENT: Anicteric and Moist mucous membranes
Cardiovascular: Rhythm & rate is regular, Pedal edema is absent, JVD pressure is normal, S1S2 is normal and Murmur/rub/gallop absent
Respiratory: Respiratory effort normal and Other (Decreased throughout.)
GI: Soft, Distention absent, Flat, Non tender and Normal bowel sounds
Neuro/Psych: AO x 3
Data Reviewed
-
Date of Service: December 18, 2024
Medical Decision Making: Reviewed Test Results, Independent Historian Assessment and Test Interpretation
EKG: Tracing Personally Visualized and interpreted and Report Reviewed by me
Echo: Report Reviewed by me
X-Ray/CT/US/MRI/NUC/PET: Image Personally Visualized and interpreted and Report Reviewed by me
Labs: Labs Reviewed by me
[2024-12-18] MEDS: AMARYL 4 MG PO ×2 (08:13→17:03)
[2024-12-18] MEDS: PLAVIX 75 MG PO (08:13)
[2024-12-18] MEDS: FLOMAX 0.4 MG PO (08:13)
[2024-12-18] MEDS: ZESTRIL 10 MG PO (08:13)
[2024-12-18] MEDS: TRICOR 48 MG PO (08:13)
[2024-12-18] MEDS: LASIX 40 MG IV ×2 (08:14→15:45)
[2024-12-18] MEDS: DITROPAN 5 MG PO ×2 (08:14→20:32)
[2024-12-18] MEDS: PROSCAR 5 MG PO (08:14)
[2024-12-18] MEDS: KCL 270 MEQ IV (08:14)
[2024-12-18] MEDS: TOPROL XL 100 MG PO (08:14)
[2024-12-18] MEDS: ACTOS 30 MG PO (08:14)
[2024-12-18] MEDS: NOVOLOG FLEXPEN-LOW RESISTANCE SC (08:46)
--- NOTE | 2024-12-18 08:53 | W.PN.HOSP.TC ---
Addendum entered and electronically signed by Yair Drew MD 12/18/24 14:23:
Seen and examined by me independently in collaboration with the medical affairs leader Dr. Hammond.
Lab data and imaging data reviewed.
Addendum as below :
Patient with improved symptoms of shortness of breath and also much improved hypoxia. Currently on 3 L of oxygen. Chest is clear. Improved lower extremity edema. No chest pain.
Continue with IV diuresis.
Continue with IV heparin for non-ST ration MT. For cardiac catheterization today.
He had a repeat chest x-ray done yesterday which raises the concern about a right upper lobe opacity. Clinically without fever or white count on admission. I see procalcitonin elevation. He had a prodrome of respiratory illness. Cannot rule out
community-acquired pneumonia. We will treat with ceftriaxone and doxycycline for now and follow the chest x-ray with diuresis. If rapid improvement with diuresis then de-escalate antibiotics.
He had a loss of left upper tooth with still persistent and maxillary tenderness. Obtain a CT of the sinuses to evaluate if any deeper infection.
Total time spent on today's encounter was 52 minutes which included time spent in counseling the patient/family regarding diagnosis and treatment plan as listed above, goals of care, and symptom management. Case was discussed with nursing staff,
specialists, and care coordinators/case management. All labs and imaging personally reviewed by me. Remainder the time spent in detailed review of previous records, lab data, imaging, and other medical provider documentation.
Original Note:
Today's Communication/Plan
-
Patient to undergo cardiac cath today. Monitor for any worsening pain, breathing. Wean off supplemental oxygen as possible
Assessment / Plan
Assessment / Plan
Assessment:
74-year-old male with a past medical history of CAD status post CABG 13 years ago, iyg-lvnfade-xupzwcijh diabetes, hypertension presented to the [facility] emergency department on 12/16/2024 due to recent increased shortness of breath.
Patient has been having worsening cough for about a week and reported having a fever a day ago. Yesterday patient had gone to his primary care doctor for evaluation of his recent upper respiratory symptoms and was started on antibiotics. When he
got home patient's daughter noticed that he was very short of breath and took him to the emergency department. In the emergency department he had fever with a temperature of 99.3, markedly hypoxic and was started on oxygen supplementation with 10 L
of oxygen. Patient's ECG showed sinus tachycardia with PVCs, ST changes inferolaterally. However patient's troponin levels continued to increase. Chest x-ray done in the ED showed marked pulmonary edema. Cardiology was consulted and patient was
started on IV Lasix. Patient was admitted to the IMU for further management as he required increased supplemental oxygen. Patient underwent echocardiogram which showed mild reduction in systolic function. Patient was scheduled to undergo cardiac
catheterization to determine if he has any acute coronary artery disease.
Chest X-Ray (12/16/2024):
Cardiac silhouette size appears enlarged. Diffusely increased interstitial markings with indistinctness of the central pulmonary vasculature. Radiographic findings are highly suggestive of interstitial edema pattern, most likely on the basis of
congestive heart failure.
Differential consideration of bilateral interstitial pneumonia, felt to be less likely.
Mildly reduced left ventricular systolic function. LV ejection fraction is 45-
50% by visual estimate.
Hypokinesis of the basal to mid septal, inferior and mid to distal
inferolateral wall.
Stage II diastolic dysfunction suggestive of abnormal relaxation and increased
filling pressures.
Mild pulmonary hypertension.
No prior study available for comparison.
Plan:
# Acute hypoxic respiratory failure secondary to heart failure with mildly reduced ejection fraction
-Chest x-ray showed interstitial edema, recent weight gain and peripheral edema along with noncompliance with his Lasix 40mg daily
-BNP elevated at 4887
-Echo as above
-Cardiology consulted, input appreciated
-Continue IV Lasix 40 mg twice daily
-Daily weights and I/O's
-Continue lisinopril
-Continue metoprolol XL 100 mg
-Continue pioglitazone
-Supplemental oxygen as needed, will try to wean off as possible
# Possible pneumonia due to recent upper respiratory symptoms
-Had a low-grade temperature in the ED, also reported fever yesterday
-Afebrile since admission
-Blood cultures negative
-COVID-negative, flu negative
-Transition to azithromycin and ceftriaxone for possible pneumonia
-Will repeat chest x-ray in a day, if resolution seen, most likely due to pulmonary edema rather than pneumonia and will stop antibiotics at that time
-No leukocytosis, less likely pneumonia
-Procalcitonin 0.72 (elevated)
-Cough suppression and nebs as needed
# Elevated troponins possibly secondary to coronary artery disease
-Continue to trend upwards, latest reading was 16.5
-Patient on Plavix, given dose of aspirin 325
-Placed on heparin drip
-No chest pain
-Cardiology consulted, input appreciated
-Plan for cardiac cath today
-Will continue metoprolol, TESS inhibitor and nitroglycerin paste as per cardiology
-LDL cholesterol 81, triglycerides a bit elevated at 170
-Continue trending troponins
# Possible abscess in the left mid maxillary area
-Contacted OMFS yesterday, was recommended to follow-up with outpatient setting
-Patient was given information and will follow-up with him in outpatient setting
-Will be continuing ceftriaxone and azithromycin
-Will get CT sinuses to check for any drainable abscesses
# Jdq-frinubr-tbjzengql diabetes type 2
-Continue glimepiride, holding metformin still
-Sliding scale insulin, Accu-Cheks
-HbA1c 6.5%
# Hypomagnesemia
-Repleted
-Monitor and replete as necessary
Full code
DVT prophylaxis: Heparin GTT
Anticipated Discharge: 24 - 48 hours
Subjective/Interval History
-
Date of Service: December 18, 2024
Patient says that there is some improvement in his condition however he reports some pain in his bilateral lower extremities and left hand. Says they are most likely musculoskeletal related, intensity is not very high. Otherwise her still reports
no chest pain, still requiring supplemental oxygen support. No fever or chills overnight.
Objective Data
-
Labs:
Laboratory Results
12/17/24 12/18/24 12/18/24
23:14 06:08 12:40
APTT 44.8 H 55.0 H Pending
Sodium 138
Potassium 3.2 L
Chloride 98
Carbon Dioxide 33 H
BUN 32 H
Creatinine 1.0
Glucose 150 H
Calcium 9.4
Vital Signs:
Vital Signs
Temp Pulse Resp BP Pulse Ox
97.4 F 70 27 144/72 97
12/18/24 07:49 12/18/24 08:14 12/18/24 08:00 12/18/24 08:14 12/18/24 08:11
I&O
12/17/24 12/18/24 12/19/24
06:59 06:59 06:59
Intake Total 1700 / 1700
Output Total 1600 / 1600 3975 / 3975
Balance -1600 / -1600 -2275 / -2275
Review of Systems
-
History Source: Patient
Constitutional: Denies Fever or Chills
EENT: Reports Mouth Pain (Teeth pain)
Respiratory: Reports Cough, Trouble Breathing and Wheezing
Cardiac: Denies Chest Pain, Palpitations or Syncope
Abdomen/GI: Denies Abdominal Pain, Nausea or Vomiting
Genitourinary: Reports No Symptoms
Musculoskeletal: Reports Muscle Pain (Bilateral lower extremities, left hand) and Edema (Bilateral lower extremity edema)
Skin: Reports No Symptoms
Neuro: Reports No Symptoms
Physical Exam
-
General: Well Developed, Well Nourished, Respiratory Distress, Appears in Distress and Conversant
HEENT: Normocephalic, Oxygen (Down to 3L supplemental oxygen) and Other (Cracked frontal teeth, possible abscess in left mid maxillary area as tenderness is noted, T12 fracture and mild thickening of the gum)
Respiratory: Crackles and Non Labored Respirations
Cardiac: Regular Rhythm (Sinus rhythm), S1/S2 and Tachycardic
GI: Soft, Nontender and Nondistended
Musculoskeletal: Edema, Right Lower Extrem (2+) and Edema, Left Lower Extrem (2+)
Skin: Warm
Neuro: Awake, Alert, Oriented and AO x 3
Psych: Calm
Data Reviewed
-
Labs: Labs Reviewed by me, Discussed with Physician, Discussed with Nurse and Discussed with Patient
--- NOTE | 2024-12-18 09:58 | PTCARENOTE ---
Verbal report given to lab clerk RN. Patient transferred to lab clerk by 2 lab clerk RN's. Patient transferred on heart monitor.
--- NOTE | 2024-12-18 10:27 | CM ---
Reviewed the chart notes. Plan for heart cath today. LUCINA spoke with Jeremie vasquez RN. Dimitrios requested a copy of the patient's face sheet be sent. Copy sent via [facility]. CM continues to be available to patient/family and is monitoring
medical plan for needs at discharge.
Plan: Discharge plans will depend on the patient's progress.
--- NOTE | 2024-12-18 11:23 | ITS.CL.CATH ---
[facility] Managing Director - Catheterization
Cardiac Catheterization
Procedure Report:
CARDIAC CATHETERIZATION REPORT
Date of Procedure: 12/18/2024
Referring: Fely Hough M.D.
INDICATION: Non-ST elevation myocardial infarction, new heart failure.
PROCEDURE:
1. Left heart catheterization.
2. Coronary angiography.
3. Bypass angiography.
A total of 41 minutes of procedural/moderate sedation was utilized. An independent medical scientist was present to assist with and help manage the patient's level of consciousness and physiologic status.
ACCESS:
1. 6 [place] right common femoral artery using a modified Seldinger technique with a micropuncture kit under ultrasound guidance. Ultrasound image obtained.
CATHETERS:
1. 5 [place]ian JL 4.
2. 5 [place]ian JR4.
3. 5 [place]ian VICENTE.
4. 5 [place]ijian multipurpose.
5. 5 [place]ian AL-1.
HEMODYNAMIC DATA
Weight (kg): 105.7
AO (s/d/x, mmHg): 125/61/85
LV (s/x mmHg): 128/21
LEFT VENTRICULOGRAPHY: Not performed.
CORONARY ANGIOGRAPHY
Dominance: Right.
Left Main: Normal size, bifurcating vessel. There is significant calcification without obvious stenosis.
LAD: Normal size vessel giving rise to 3 diagonals. D1 and D2 are small to medium size vessels. D3 is a large sized vessel supplying a significant amount of the anterolateral wall. The LAD is diffusely diseased in its proximal and midportion,
becoming chronically totally occluded immediately after the origin of the second diagonal. There is a 70% lesion after the origin of the third diagonal. The LAD is supplied by a patent ALATORRE graft. A graft is present supplying the third diagonal.
Ramus: Congenitally absent.
Circumflex: Nondominant vessel. The vessel is densely calcified and chronically totally occluded in its proximal margin. A graft is present supplying the obtuse marginal.
RCA: Normal size, dominant vessel. The vessel is severely, diffusely diseased and chronically totally occluded in its midportion. The RPDA is supplied by collaterals from the LAD.
BYPASS GRAFT ANGIOGRAPHY
ALATORRE to LAD: Normal size graft with end-to-side anastomosis to the distal LAD. There is no evidence of stenosis or graft degeneration.
LRA to OM: Normal size graft with end-to-side anastomosis to the obtuse marginal. The graft is chronically totally occluded at the aorta but backfills from a Y graft supplying the first diagonal.
SVG to D1: Normal size graft with Y anastomosis from the left radial artery graft and end-to-side anastomosis to the third diagonal. There is no evidence of stenosis or graft degeneration.
SVG to RCA: Chronically totally occluded at its origin.
SVG to unknown: Chronically totally occluded at its origin.
INTERVENTION(S)
None.
Closure Device: 6 [place]ijian Angio-Seal.
Radiation (mGy): 1111.59
DAP (cm2.Gy): 79.0148
Fluoroscopy time (minutes): 10.9
CONCLUSIONS
1. Right dominant circulation with severe, multivessel disease, status post CABG (ALATORRE to LAD, LRA to OM, SVG Y graft off of LRA to D1, SVG to RPDA, SVG to unknown) with a patent ALATORRE graft and chronic total occlusion of all the aortic grafts at
their origin, but patent LRA and SVG Y graft with complicated flow pattern detailed below. The LAD is chronically diffusely diseased in its proximal midportion, ultimately chronically totally occluded after the small second diagonal, the circumflex
is chronically totally occluded in its proximal margin and the RCA is occluded at its midportion. There is an additional 70% lesion in the distal LAD, distal to the origin of D3 but proximal to the anastomosis of the ALATORRE graft.
2. The SVG to the RCA and the SVG to unknown artery are chronically totally occluded. The left radial artery is chronically totally occluded at its origin but patent in its proximal margin, including the Y graft origin to the first diagonal. The
patient's coronary blood flow is complicated and proceeds as follows: The ALATORRE graft supplies the LAD which backfills the third diagonal (through a 70% LAD stenosis). The SVG to the third diagonal is subsequently filled retrograde back to the level
of the chronic total occlusion of the left radial artery graft anastomosis. The left radial artery graft is subsequently filled from flow from the diagonal and supplies the obtuse marginal. The RPDA is supplied by collaterals from the left
circulation.
3. Moderately elevated filling pressures (LVEDP = 21 mmHg at 105.7 kg).
RECOMMENDATIONS:
1. Expectant management after cardiac catheterization via right common femoral approach.
2. Limited weight bearing for one week.
3. Given the highly complex nature of the patient's coronary artery disease, I recommend medical management at this time, including OMT/GDMT as hemodynamics will tolerate.
4. Any intervention would be extreme risk as our options would include retrograde treatment of the 70% LAD lesion to allow for better backfilling of the patent grafts through the third diagonal versus attempted SP[employer]UG TESTER revascularization of the third
diagonal through the [place] LAD, allowing the 70% distal LAD lesion to maintain patency of the ALATORRE graft.
5. Continue diuresis given residual moderately elevated filling pressures.
Copy to: Fely Hough M.D., Abdifatah Parker M.D.
Bulmaro Melissa, , FACC, FACP
--- NOTE | 2024-12-18 11:49 | PTCARENOTE ---
Patient arrived back to IMU post cardiac cath. R groin site bandage clean dry and intact. No hematoma felt. R dorsal pedis pulse present with doppler. HOB <30 degrees. Care ongoing
[2024-12-18] MEDS: ROCEPHIN 1000 MG IV (11:58)
[2024-12-18] MEDS: STERILE WATER FOR INJECTION 10 ML IV (11:58)
[2024-12-18] MEDS: ZITHROMAX 252.5 MG IV (11:59)
[2024-12-18] MEDS: NOVOLOG FLEXPEN-LOW RESISTANCE 2 UNITS SC (12:04)
[2024-12-18 12:13] LABS: Glucose - Point of Care 213 mg/dl (70-99)
[2024-12-18 13:56] LABS: Magnesium 1.4 mg/dl (1.6-2.3); Phosphorus 3.9 mg/dl (2.5-4.5)
[2024-12-18] MEDS: MAGNESIUM SULFATE 100 IV (14:51)
[2024-12-18 15:20] LABS: Blood Urea Nitrogen 33 mg/dl (9-20); Calcium 9.1 mg/dl (8.4-10.2); Carbon Dioxide 35 mmol/L (22-30); Chloride 95 mmol/L (98-107); Estimated Creatinine Clearance 78 ml/min; Glucose 300 mg/dl (70-99); Potassium 3.7 mmol/L (3.5-5.1); Sodium 138 mmol/L (135-145); eGFR > 60.00
--- NOTE | 2024-12-18 15:28 | PTCARENOTE ---
Patient AOx3. Patient has flat affect. 3L midflow with SpO2 greater than 92%. NSR with frequent PAC's on monitor. BP stable. +2 pitting B/L LE edema. Dry cough. PRN Robitussin given per order. Condom cath draining yellow urine. Post cardiac cath
documentation/assessment completed see 'worklist'. Patient tolerating diet. Call mckinney within reach, bed in lowest position, and bed of wheels locked.
--- NOTE | 2024-12-18 17:19 | PTCARENOTE ---
Verbal report given to Qian DOMINGO in IVU. Patient transferred via stretcher and patient belongings transferred with patient.
--- NOTE | 2024-12-18 17:43 | PTCARENOTE ---
Rec'd pt from IMU. Report rec'd from Sherrie DOMINGO. Pt able to ambulate from stretcher w/ RW and assist x1. Pt on 3L midflow and sating 98%. Pt weaned to 2L NC O2 and sating 98%. Pt has no complaints/discomfort at this time. Oriented to room. Currently
OOB in chair; call mckinney w/in reach.
[2024-12-18 17:52] LABS: Glucose - Point of Care 292 mg/dl (70-99)
[2024-12-18] MEDS: NOVOLOG FLEXPEN-MODERATE RESISTANCE 5 UNITS SC (18:35)
--- NOTE | 2024-12-18 19:40 | PTCARENOTE ---
Assumed care of pt from prev nsg shift; Pt AAOx3 w/no c/o CP or SOB, but pt appears to be dyspneic w/exertion. Pt's O2 sats 94% on 2L via NC. Pt's VSS w/HR in the 70's & BP 95/60 this evening. Pt is SR w/occas PAC's on telemetry monitoring. Pt w/IV
Mg+ infusing through patent IV line as ordered. Pt's R groin access site w/dressing C/D/I w/no signs or symptoms of bleeding or hematoma. Pt w/call mckinney within reach & plan of care ongoing.
[2024-12-18] MEDS: KCL 20 MEQ PO (20:32)
[2024-12-18] MEDS: LIPITOR 40 MG PO (20:32)
[2024-12-18 21:58] LABS: Glucose - Point of Care 339 mg/dl (70-99)
[2024-12-19] VITALS (10 sets, daily range): BP systolic 104–149; BP diastolic 66–87; PULSE 67; O2SAT 97; BMI 36.6
[2024-12-19] MEDS: NITRO-BID 0.5 INCH TOPICAL ×2 (01:25→06:27)
[2024-12-19 05:31] LABS: Hematocrit 27.3 % (39.0-52.0); Hemoglobin 9.4 g/dL (13.0-18.0); Mean Corp Hgb Conc. 34.4 g/dL (33.0-37.0); Mean Corpuscular Hgb 29.2 pg (27.0-31.0); Mean Corpuscular Volume 84.8 fL (80.0-94.0); Mean Platelet Volume 11.9 fL (7.4-10.4); Platelet Count 206 10^3/uL (130-400); Red Blood Cell Count 3.22 10^6/uL (4.70-6.10); Red Cell Dist. Width 13.5 % (11.5-14.5); White Blood Cell Count 4.3 10^3/uL (4.8-10.8)
[2024-12-19 05:47] LABS: Blood Urea Nitrogen 45 mg/dl (9-20); Carbon Dioxide 33 mmol/L (22-30); Chloride 96 mmol/L (98-107); Estimated Creatinine Clearance 37 ml/min; Glucose 187 mg/dl (70-99); Magnesium 2.4 mg/dl (1.6-2.3); Potassium 3.9 mmol/L (3.5-5.1); Sodium 136 mmol/L (135-145); eGFR 32.83
--- NOTE | 2024-12-19 07:18 | W.PN.CD ---
Today's Communication / Plan
-
Hold diuretics, ACEI in light of TONY.
Nephrology directing TONY evaluation.
Ready to transition to PO diuretics when appropriate.
Patient would benefit from addition of spironolactone (not possible at this time).
Start aspirin [address] chest to further clarify hilar pulmonary opacity. This can wait until he can tolerate contrast.
Impression / Plan
-
Impression/Plan: 74M with CAD (prior CABG), HTN, HLD and NIDDM admitted with NSTEMI and new HFmEF (LVEF 45-50%), now with acute kidney injury.
#Hypoxic respiratory failure
-Acute, improving.
-SARS-CoV-2 negative, influenza negative.
-CXR shows pulmonary edema, but also an opacity in the suprahilar right upper lobe. CT chest as there is concern for potential malignancy.
#HFmEF
-Acute, threat to life, improving but requires intensive monitoring.
-LVEF 40-50%.
-There is a question of adherence at home.
-Daily weights.
-Replace K+. Goal K > 4, Mg > 2, Ca > 8 and PO4 > 2.5.
-GDMT as hemodynamics will tolerate. SGLT2i and ARNi are cost prohibitive.
-Discontinue amlodipine.
-Continue metoprolol.
-Hold diuretics.
#NSTEMI/CAD
-Acute, threat to life.
-History of CAD s/p CABG (he reports 5 jumps, unknown anatomy, but they did use a left radial graft).
-Chest pain-free.
-Troponin peaked at 16.4.
-Complex coronary anatomy - essentially living off of the ALATORRE/LAD which backfills the [place] D3, the y-graft SVG to D3, the LRA to OM and thus the RPDA via collaterals. There is a 70% LAD lesion distal to D3 but proximal to the ALATORRE anastomosis.
-I discussed the situation with his outpatient jewelry bench worker (Dr. Shannon) and the patient. Overall, this is VERY high risk anatomy for any intervention ([place] LAD into the D3 vs. retrograde intervention via ALATORRE graft).
-We will focus on medical management of NSTEMI (DAPT, OMT/GDMT, secondary prevention) and treatment of his hypoxic respiratory failure.
-Discontinue nitro paste.
-Start aspirin 81 mg daily (in addition to home clopidogrel).
#TONY
-Acute.
-Creatinine 2.1, increased from 1.0. DDx includes functional hypovolemia, contrast nephropathy, medication related (ACEI, furosemide) or AIN.
-Check renal US, UA.
-Hold diuretics, ACEI.
#Hypertension
-Chronic, multidrug, stable.
-Continue to hold amlodipine.
-D/C nitro paste as above.
-Hold ACEI/spironolactone in light of TONY.
#Anemia
-Unknown duration.
-Normal MCV.
-Check Fe studies, B12, folate, thiamine, reticulocyte count/index, heme-occult.
#HLD
-Chronic, stable.
-Total cholesterol = 162, LDL = 81, HDL = 47, Triglycerides = 170.
-LDL above goal on atorvastatin, possible nonadherence.
-Goal LDL < 55, Triglycerides < 150.
#NIDDM
-Chronic, stable.
-HgbA1c 6.5%.
-Management per primary service.
-Patient will continue to benefit from GLP-1 analog.
#Obesity
-Chronic.
-Semaglutide as noted.
Outpatient jewelry bench worker: Dr. Shannon
Subjective/Interval History:
Weight down 0.2 kg from yesterday.
SaO2 = 92-97%.
Cardiac catheterization shows occlusion of all [place] circulation. ALATORRE to LAD is patent and fills LAD and backfills the D3. An SVG to grafted to D3 and backfills to its origin, which is a Y-graft off of a left radial artery graft to the obtuse
marginal. The origin of the left radial graft is occluded at the aortic anastomosis but patent at the level of the Y-graft. The SVG to the RCA and SVG to unknown artery are both chronically totally occluded. Finally, there is a 70% lesion in the
LAD, distal to the origin of D3 but proximal to the ALATORRE anastomosis.
Overall, he is living off of the ALATORRE/LAD.
DATA:
Echocardiogram, 12/17/2024:
CONCLUSIONS
Mildly reduced left ventricular systolic function. LV ejection fraction is 45-
50% by visual estimate.
Hypokinesis of the basal to mid septal, inferior and mid to distal
inferolateral wall.
Stage II diastolic dysfunction suggestive of abnormal relaxation and increased
filling pressures.
Mild pulmonary hypertension.
No prior study available for comparison.
CXR, 12/17/2024:
IMPRESSION:
1. MILD ACUTE INTERSTITIAL and ALVEOLAR CARDIOGENIC PULMONARY EDEMA.
2. Mild cardiomegaly.
3. Previous CABG surgery.
4. 3.8 cm asymmetric opacity in the suprahilar right upper lobe. Diagnostic possibilities are (1) right upper lobe lung cancer, (2) asymmetric pulmonary edema, or (3) infectious or inflammatory pneumonitis.
Cardiac Catheterization, 12/18/2024:
CONCLUSIONS
1. Right dominant circulation with severe, multivessel disease, status post CABG (ALATORRE to LAD, LRA to OM, SVG Y graft off of LRA to D1, SVG to RPDA, SVG to unknown) with a patent ALATORRE graft and chronic total occlusion of all the aortic grafts at
their origin, but patent LRA and SVG Y graft with complicated flow pattern detailed below. The LAD is chronically diffusely diseased in its proximal midportion, ultimately chronically totally occluded after the small second diagonal, the circumflex
is chronically totally occluded in its proximal margin and the RCA is occluded at its midportion. There is an additional 70% lesion in the distal LAD, distal to the origin of D3 but proximal to the anastomosis of the ALATORRE graft.
2. The SVG to the RCA and the SVG to unknown artery are chronically totally occluded. The left radial artery is chronically totally occluded at its origin but patent in its proximal margin, including the Y graft origin to the first diagonal. The
patient's coronary blood flow is complicated and proceeds as follows: The ALATORRE graft supplies the LAD which backfills the third diagonal (through a 70% LAD stenosis). The SVG to the third diagonal is subsequently filled retrograde back to the level
of the chronic total occlusion of the left radial artery graft anastomosis. The left radial artery graft is subsequently filled from flow from the diagonal and supplies the obtuse marginal. The RPDA is supplied by collaterals from the left
circulation.
3. Moderately elevated filling pressures (LVEDP = 21 mmHg at 105.7 kg).
Physical Exam
Vital Signs/Labs
Vital Signs
Temp Pulse Resp BP Pulse Ox
37.7 C 75 20 124/87 96
12/19/24 04:43 12/19/24 04:43 12/19/24 04:43 12/19/24 04:43 12/19/24 04:43
12/17/24 12/18/24 12/19/24
11:59 11:59 11:59
Actual Weight 109.5 kg 106.1 kg 105.9 kg
12/19/24 04:48
12/19/24 04:48
APTT Cancelled 12/18/24 12:40
Magnesium 2.4 mg/dl (1.6-2.3) H 12/19/24 04:48
Triglycerides 170 mg/dl (10-149) H 12/17/24 05:15
LDL Cholesterol, Calc 81 mg/dl 12/17/24 05:15
VLDL Cholesterol, Calc 34 mg/dl (0-30) H 12/17/24 05:15
HDL Cholesterol 47 mg/dl 12/17/24 05:15
12/16/24
17:57
Ahy-K-Aoetblxrizk Pept 4660
LAB Results
12/16/24 12/16/24 12/17/24
17:57 23:29 05:15
Troponin I 0.090 H* 6.580 H* D 16.500 H* D
12/17/24 12/17/24 12/18/24
09:33 16:45 09:35
Troponin I 16.000 H* 13.500 H* 7.940 H*
Physical Exam
Constitutional: No acute distress and Comfortable
EENT: Anicteric and Moist mucous membranes
Cardiovascular: Rhythm & rate is regular, Pedal edema is absent, JVD pressure is normal, S1S2 is normal and Murmur/rub/gallop absent
Respiratory: Respiratory effort normal, Lungs clear to auscul., Wheeze Absent, Crackles Absent and Rhonchi Absent
GI: Soft, Distention absent, Flat, Non tender and Normal bowel sounds
Neuro/Psych: AO x 3
Other: Cath Site (Right femoral access site is C/D/I.)
Data Reviewed
-
Date of Service: December 19, 2024
Medical Decision Making: Reviewed Test Results, Independent Historian Assessment and Test Interpretation
EKG: Tracing Personally Visualized and interpreted and Report Reviewed by me
Echo: Report Reviewed by me
X-Ray/CT/US/MRI/NUC/PET: Image Personally Visualized and interpreted and Report Reviewed by me
Medical Tests (PFT, Pathology etc): Image Personally Visualized and interpreted and Report Reviewed by me
Labs: Labs Reviewed by me
Old Records: Reviewed
[2024-12-19 07:22] LABS: Glucose - Point of Care 194 mg/dl (70-99)
[2024-12-19 07:54] LABS: Iron 24 ug/dl (49-181)
[2024-12-19 08:04] LABS: Percent Saturation 8 % (20-50); Total Iron Binding Capacity 267 ug/dl (261-462)
--- NOTE | 2024-12-19 09:06 | W.PN.HOSP.TC ---
Addendum entered and electronically signed by Yair Drew MD 12/19/24 13:12:
Seen and examined by me independently in collaboration with the medical technologist hematology Dr. Hammond.
Lab data and imaging data reviewed.
Addendum as below :
Breathing is improved. No chest pain. Tolerating diet. On minimal oxygen now. Chest clear.
Acute CHF-improving. Weight down by 14 pounds. Improved oxygenation. Hold diuresis today with TONY.
CAD with non-ST elevation CO-cardiac catheterization noted. Patient with severe CAD and recommendation is for medical therapy.
Right upper lobe opacity-cannot rule out pneumonia versus edema. Obtain a repeat follow-up chest x-ray tomorrow and if there is rapid improvement to de-escalate antibiotics.
Still with the left maxillary sinus pressure. Still has some localized tenderness. CT sinuses surveillance complete of reciprocation of the left sinus raising concern for sinusitis. ENT consulted.
Acute kidney injury noted-rapid change in creatinine 2.1 from 1 since yesterday noted. Possibly combination of diuresis and recent cardiac catheterization. Check bladder scan to rule out retention. Consult nephrology.
Patient also now has left second and third finger metacarpophalangeal joint swelling which is warm and tender. He also has a left ankle pain especially with movement. Denies prior history of gout or pseudogout. Clinical suspicion is so. Check
uric acid and start on colchicine based on renal function.
Total time spent on today's encounter was 52 minutes which included time spent in counseling the patient/family regarding diagnosis and treatment plan as listed above, goals of care, and symptom management. Case was discussed with nursing staff,
specialists, and care coordinators/case management. All labs and imaging personally reviewed by me. Remainder the time spent in detailed review of previous records, lab data, imaging, and other medical provider documentation.
Original Note:
Today's Communication/Plan
-
Continue monitoring breathing, oxygen levels while walking. Continue IV antibiotics for now, there is very symptomatic improvement. Continue Lasix therapy.
Assessment / Plan
Assessment / Plan
Assessment:
74-year-old male with a past medical history of CAD status post CABG 13 years ago, [id number] diabetes, hypertension presented to the [facility] emergency department on 12/16/2024 due to recent increased shortness of breath.
Patient has been having worsening cough for about a week and reported having a fever a day ago. Yesterday patient had gone to his primary care doctor for evaluation of his recent upper respiratory symptoms and was started on antibiotics. When he
got home patient's daughter noticed that he was very short of breath and took him to the emergency department. In the emergency department he had fever with a temperature of 99.3, markedly hypoxic and was started on oxygen supplementation with 10 L
of oxygen. Patient's ECG showed sinus tachycardia with PVCs, ST changes inferolaterally. However patient's troponin levels continued to increase. Chest x-ray done in the ED showed marked pulmonary edema. Cardiology was consulted and patient was
started on IV Lasix. Patient was admitted to the IMU for further management as he required increased supplemental oxygen. Patient underwent echocardiogram which showed mild reduction in systolic function. Patient underwent successful cardiac
catheterization yesterday which showed severe coronary artery disease which was recommended to only be treated via medical approach. Recommendation was to continue diuresis. Patient's oxygen levels were improving and he was eventually weaned off
to room air. Patient to undergo CT scan of the sinuses today to determine left maxillary pain.
Chest X-Ray (12/16/2024):
Cardiac silhouette size appears enlarged. Diffusely increased interstitial markings with indistinctness of the central pulmonary vasculature. Radiographic findings are highly suggestive of interstitial edema pattern, most likely on the basis of
congestive heart failure.
Differential consideration of bilateral interstitial pneumonia, felt to be less likely.
CR Chest Portable - 1 View (12/17/2024):
1. MILD ACUTE INTERSTITIAL and ALVEOLAR CARDIOGENIC PULMONARY EDEMA.
2. Mild cardiomegaly.
3. Previous CABG surgery.
4. 3.8 cm asymmetric opacity in the suprahilar right upper lobe. Diagnostic possibilities are (1) right upper lobe lung cancer, (2) asymmetric pulmonary edema, or (3) infectious or inflammatory pneumonitis.
Mildly reduced left ventricular systolic function. LV ejection fraction is 45-
50% by visual estimate.
Hypokinesis of the basal to mid septal, inferior and mid to distal
inferolateral wall.
Stage II diastolic dysfunction suggestive of abnormal relaxation and increased
filling pressures.
Mild pulmonary hypertension.
No prior study available for comparison.
Plan:
# Acute hypoxic respiratory failure secondary to heart failure with mildly reduced ejection fraction
-Chest x-ray showed interstitial edema, recent weight gain and peripheral edema along with noncompliance with his Lasix 40mg daily
-BNP elevated at 4887
-Echo as above
-Cardiology consulted, input appreciated
-Continue IV Lasix 40 mg twice daily
-Daily weights and I/O's (Weight dropped from 112.4kg to 105.9kg)
-Continue lisinopril
-Continue metoprolol XL 100 mg
-Continue pioglitazone
-Supplemental oxygen as needed, will try to wean off as possible
# Possible pneumonia due to recent upper respiratory symptoms
-Had a low-grade temperature in the ED, also reported fever yesterday
-Afebrile since admission
-Blood cultures negative
-COVID-negative, flu negative
-No leukocytosis, less likely pneumonia
-Procalcitonin 0.72 (elevated)
-Cough suppression and nebs as needed
-Continue doxycycline and ceftriaxone for possible pneumonia
-Will repeat chest x-ray in a day, if resolution seen, most likely due to pulmonary edema rather than pneumonia and will stop antibiotics at that time
# Elevated troponins possibly secondary to coronary artery disease
-Peaked
-Patient on Plavix, given dose of aspirin 325
-Heparin drip discontinued
-No chest pain
-LDL cholesterol 81, triglycerides a bit elevated at 170
-Cardiology consulted, input appreciated
-Cardiac cath showed severe coronary disease that they could not intervene with surgically
-Plan is to continue management medically
-Will continue metoprolol, TESS inhibitor and nitroglycerin paste as per cardiology
-Discontinued amlodipine
# Possible abscess in the left mid maxillary area
-Contacted OMFS, was recommended to follow-up with outpatient setting
-Patient was given information and will follow-up with him in outpatient setting
-Will be continuing ceftriaxone and doxycycline
-Will get CT sinuses to check for any drainable abscesses
# Qqk-nfglzli-epwdzvtko diabetes type 2
-Continue glimepiride, holding metformin still
-Moderate Sliding scale insulin, Accu-Cheks
-HbA1c 6.5%
# Hypomagnesemia
-Repleted
-Monitor and replete as necessary
Full code
DVT prophylaxis: Lovanox
Anticipated Discharge: Within 24 hours
Subjective/Interval History
-
Date of Service: December 19, 2024
Patient says that he has been feeling much better than before, his breathing has much improved. Still complains of left upper maxillary tenderness, but has had no fever or chills. No chest pain still, and notes that his lower extremity swelling is
improving as well. Reports that he has had no adverse events after cardiac catheterization yesterday. Patient was weaned off from 2 L of oxygen yesterday to now on room air.
Objective Data
-
Labs:
Laboratory Results
12/19/24
04:48
WBC 4.3 L
Hgb 9.4 L
Hct 27.3 L
Plt Count 206 D
Sodium 136
Potassium 3.9
Chloride 96 L
Carbon Dioxide 33 H
BUN 45 H
Creatinine 2.1 H
Glucose 187 H
Calcium 9.0
Vital Signs:
Vital Signs
Temp Pulse Resp BP Pulse Ox
99.2 F 75 16 124/87 92
12/19/24 07:49 12/19/24 04:43 12/19/24 07:49 12/19/24 04:43 12/19/24 07:49
I&O
12/18/24 12/19/24 12/20/24
06:59 06:59 06:59
Intake Total 1700 / 1700 2400 / 2400
Output Total 3975 / 3975 1900 / 1900
Balance -2275 / -2275 500 / 500
Review of Systems
-
History Source: Patient
Constitutional: Denies Fever or Chills
EENT: Reports Mouth Pain (Teeth pain, left upper maxillary)
Respiratory: Reports Cough, Trouble Breathing and Wheezing
Cardiac: Denies Chest Pain, Palpitations or Syncope
Abdomen/GI: Denies Abdominal Pain, Nausea or Vomiting
Genitourinary: Reports No Symptoms
Musculoskeletal: Reports Muscle Pain (Bilateral lower extremities, left hand) and Edema (Bilateral lower extremity edema)
Skin: Reports No Symptoms
Neuro: Reports No Symptoms
Physical Exam
-
General: Well Developed, Well Nourished, Respiratory Distress, Appears in Distress and Conversant
HEENT: Normocephalic and Other (Cracked frontal teeth, possible abscess in left mid maxillary area as tenderness is noted, T12 fracture and mild thickening of the gum); Negative Oxygen
Respiratory: Crackles and Non Labored Respirations
Cardiac: Regular Rhythm (Sinus rhythm), S1/S2 and Tachycardic
GI: Soft, Nontender and Nondistended
Musculoskeletal: Edema, Right Lower Extrem (1+) and Edema, Left Lower Extrem (1+)
Skin: Warm
Neuro: Awake, Alert, Oriented and AO x 3
Psych: Calm
Data Reviewed
-
Medical Tests (Nuc Med, Echo etc): Report Reviewed by me, Discussed with Physician, Discussed with Nurse and Discussed with Patient
Labs: Labs Reviewed by me, Discussed with Physician, Discussed with Nurse and Discussed with Patient
[2024-12-19] MEDS: ACTOS 30 MG PO (09:12)
[2024-12-19] MEDS: DITROPAN 5 MG PO ×2 (09:13→20:48)
[2024-12-19] MEDS: FLOMAX 0.4 MG PO (09:13)
[2024-12-19] MEDS: AMARYL 4 MG PO (09:13)
[2024-12-19] MEDS: TOPROL XL 100 MG PO (09:14)
[2024-12-19] MEDS: PROSCAR 5 MG PO (09:14)
[2024-12-19] MEDS: PLAVIX 75 MG PO (09:14)
[2024-12-19] MEDS: TRICOR 48 MG PO (09:15)
[2024-12-19] MEDS: VIBRAMYCIN 260 MG IV ×2 (09:15→20:49)
[2024-12-19] MEDS: ZESTRIL PO ×2 (09:15→10:31)
[2024-12-19] MEDS: TYLENOL 650 MG PO ×2 (09:17→19:38)
[2024-12-19] MEDS: ROCEPHIN 1000 MG IV (10:18)
[2024-12-19] MEDS: STERILE WATER FOR INJECTION 10 ML IV (10:18)
[2024-12-19] MEDS: NOVOLOG FLEXPEN-MODERATE RESISTANCE 1 UNITS SC (10:23)
[2024-12-19] MEDS: LASIX IV (10:31)
--- NOTE | 2024-12-19 11:02 | PTCARENOTE ---
Pt encouraged to sit OOB in chair for [facility] this morning. He went for CT scan of sinuses this am and has been sitting up in chair since he came back
--- NOTE | 2024-12-19 11:02 | W.CON.NEPH ---
Consultation
-
Date/Time Consultation Requested: 12/19/2024 10:30 AM
Date/Time Consultation Performed: 12/19/2024 11:00 AM
Performing Provider: Dr. Banerjee
Reason for Consultation: Dr. Cole
Medical History
-
Chief Complaint: Acute kidney injury
History of Present Illness:
The patient is a 74-year-old male with a past medical history of hypertension maintained chronically on amlodipine and lisinopril. He has a history of congestive heart failure for which he is chronically maintained on diuretics as well as SGLT2
inhibitor therapy and RAAS antagonist. He is maintained on metformin in the setting of his diabetes and also has a history of BPH for which he is maintained on finasteride and tamsulosin. The patient was admitted to the hospital on 12/16/2024 with
suspected congestive heart failure and his creatinine has not risen from 1-2.1 we were consulted for evaluation of his acute kidney
Past Medical History
Coronary artery disease
CABG
Diabetes
Hypertension
Dyslipidemia
Social History
Tobacco: Non-Smoker
Alcohol: Occasional
Family History
No CKD
Allergies / Home Medications
Allergy/AdvReac Type Severity Reaction Status Date / Time
No Known Allergies Allergy Verified 12/16/24 17:54
�Medication �Instructions �Recorded �Confirmed �Type
acetaminophen 500 mg tablet 1,000 mg PO Q6HPRN PRN mild pain 12/16/24 12/16/24 History
(Tylenol Extra Strength)
amlodipine 5 mg tablet 5 mg PO DAILY Blood Pressure 12/16/24 12/16/24 History
atorvastatin 40 mg tablet 40 mg PO HS High Cholesterol 12/16/24 12/16/24 History
clopidogrel 75 mg tablet 75 mg PO DAILY Blood Clot 12/16/24 12/16/24 History
Prevention/Tx
fenofibric acid 35 mg tablet 35 mg PO DAILY High Cholesterol 12/16/24 12/16/24 History
finasteride 5 mg tablet 5 mg PO DAILY Urinary Issue 12/16/24 12/16/24 History
furosemide 40 mg tablet 40 mg PO DAILY Fluid 12/16/24 12/16/24 History
Retention/Swelling
glimepiride 4 mg tablet 4 mg PO BID Diabetes 12/16/24 12/16/24 History
isosorbide mononitrate 60 mg 60 mg PO DAILY Blood Pressure 12/16/24 12/16/24 History
tablet,extended release 24 hr
lisinopril 10 mg tablet 10 mg PO DAILY Blood Pressure 12/16/24 12/16/24 History
meloxicam 15 mg tablet 15 mg PO DAILY Pain 12/16/24 12/16/24 History
metformin 1,000 mg tablet 1,000 mg PO BID Diabetes 12/16/24 12/16/24 History
metoprolol succinate 100 mg 100 mg PO DAILY Blood Pressure 12/16/24 12/16/24 History
tablet,extended release 24 hr
oxybutynin chloride 10 mg 10 mg PO DAILY Urinary Issue 12/16/24 12/16/24 History
tablet,extended release 24 hr
pioglitazone 30 mg tablet 30 mg PO DAILY Diabetes 12/16/24 12/16/24 History
semaglutide 0.25 mg or 0.5 mg (2 0.5 mg SC WE Diabetes 12/16/24 12/16/24 History
mg/3 mL) subcutaneous pen injector
(Ozempic)
sertraline 100 mg tablet 100 mg PO DAILY Mental 12/16/24 12/16/24 History
Health/Anxiety
tamsulosin 0.4 mg capsule 0.4 mg PO DAILY Urinary Issue 12/16/24 12/16/24 History
dapagliflozin propanediol 10 mg 10 mg PO DAILY Heart 12/17/24 Rx
tablet (Farxiga) disease/condition #30 tabs
sacubitril 24 mg-valsartan 26 mg 1 tab PO BID Blood pressure 30 12/17/24 Rx
tablet (Entresto) days #60 tabs
Review of Systems
-
History Source: Patient
All other systems: Negative unless noted
EENT: Other (Left maxillary face pain)
Respiratory: Cough and Trouble Breathing
: Other (Has condom catheter: notes decreased urine output overnight)
Musculoskeletal: Edema
Physical Exam
Vital Signs
Vital Signs
Temp Pulse Resp BP Pulse Ox
99.2 F 75 16 124/87 92
12/19/24 07:49 12/19/24 04:43 12/19/24 07:49 12/19/24 04:43 12/19/24 07:49
Lab Results
12/19/24 04:48
12/19/24 04:48
WBC 4.3 10^3/uL (4.8-10.8) L 12/19/24 04:48
RBC 3.22 10^6/uL (4.70-6.10) L 12/19/24 04:48
Hgb 9.4 g/dL (13.0-18.0) L 12/19/24 04:48
Hct 27.3 % (39.0-52.0) L 12/19/24 04:48
Plt Count 206 10^3/uL (130-400) D 12/19/24 04:48
Sodium 136 mmol/L (135-145) 12/19/24 04:48
Potassium 3.9 mmol/L (3.5-5.1) 12/19/24 04:48
Chloride 96 mmol/L (98-107) L 12/19/24 04:48
Carbon Dioxide 33 mmol/L (22-30) H 12/19/24 04:48
BUN 45 mg/dl (9-20) H 12/19/24 04:48
Creatinine 2.1 mg/dL (0.7-1.3) H 12/19/24 04:48
eGFR 32.83 12/19/24 04:48
Glucose 187 mg/dl (70-99) H 12/19/24 04:48
Calcium 9.0 mg/dl (8.4-10.2) 12/19/24 04:48
Phosphorus 3.9 mg/dl (2.5-4.5) 12/18/24 06:08
Odm-Y-Fmahlzhpcme Pept 4660 pg/ml 12/16/24 17:57
Albumin 4.7 g/dl (3.5-5.0) 12/16/24 17:57
Physical Exam
General: AOx3, Nontoxic , NAD
HEENT: PERRL, EOMI, Anicteric, Conjunctivae Clear, Ear/Nose Intact, Hearing Normal, Oropharynx Clear/Moist, Dentition Intact, Facial Symmetry, Neck Supple, Neck: Trachea Midline, No JVD and No Thyromegaly, no Bruits
Respiratory: coarse to auscultation bilaterally with normal lung excursion but with decreased breath sounds to bases
Cardiac: S1/S2 and Regular Rate/Rhythm (distantO
Breast: Deferred by me
Abdomen: Soft, Nontender, Nondistended, Normal Bowel Sounds and No Hepatosplenomegaly
Rectal: Deferred by Provider
Genito-urinary: No Costovertebral Tenderness
Extremities: No Clubbing, No Cyanosisbut plus one pretibial pitting edema
Skin: No Rash or open lesions
Neuro: Nonfocal/Grossly Intact, CN II-XII (Intact) and Strength (Musculoskeletal exam 5 out of 5 both upper and lower extremities)
Hematologic/Lymphatic: No Cervical Lymphadenopathy, No Submandibular Lymphadenopathy and No Supraclavicular Lymphadenopathy
Psych: Mood/afflect pleasant, Insight/judgement good and Appropriate
Vascular: plus 1 pedal and radial pulses
Data Reviewed
-
Radiology: Image Personally Visualized and interpreted (Chest x-ray personally reviewed on admission: Bilateral pulmonary edema)
Medical Tests (Nuc Med, Echo etc): Other (Cardiac cath reviewed notable for multi vascular involvement no intervention was taken LVEDP approximated to 21)
Labs: Labs Reviewed by me (BMP CBC)
Old Records: Requested (Need outside records of previous creatinine level)
Assessment/Plan
-
Impression:
Acute kidney injury
Congestive heart failure decompensated (EF 45-50%)
Non-ST elevation SD
History of hypertension
Diabetes
Coronary artery disease prior history of CABG/status postcardiac catheterization on 12/18/2024 (LVEDP 18- no PCI)
BPH
Plan:
TONY:
-weights down with diuresis
-Holding EUNICE
-Possible contrast-induced renal failure following cardiac catheterization on 12/18/2024
-Patient has remained hemodynamically stable
-Check bladder scan to assess for possible obstructive component given history of BPH
-Check urinalysis urine sodium .urine creatinine
-weights down 6 kg since admission, lasix now held
[2024-12-19 11:15] LABS: Uric Acid 9.4 mg/dl (3.5-8.5)
--- NOTE | 2024-12-19 11:23 | CON.MD ---
Consultation - Medical
-
Pt seen for sinusitis.
Pt seen and examined; CT reviewed. Full consult dictated.
He would appear to have acute left sinusitis, possibly but probably not related to dental issues.
Treatment is antibiotics and saline spray, and this should resolve and not impact his hospital stay for CA.
We would certainly prefer to treat medically and not surgically because the vast majority of cases of acute sinusitis resolve with medication, and surgery would be high risk because of recent cardiac issues.
[2024-12-19 11:43] LABS: Glucose - Point of Care 309 mg/dl (70-99)
--- NOTE | 2024-12-19 12:27 | CM ---
spoke to pt in room, he is agreeable to entresto ( 136.21) and Farxiga (115.85) cost. i gave him free 30 day coupons for both and explained to him to ask hi pharmacist to process them without insurance. he is agreeable.
[2024-12-19] MEDS: COLCHICINE 0.6 MG PO (12:50)
[2024-12-19] MEDS: ASPIR LOW (ENTERIC COATED) 81 MG PO (12:51)
[2024-12-19] MEDS: NOVOLOG FLEXPEN-MODERATE RESISTANCE 7 UNITS SC (12:51)
[2024-12-19 13:37] LABS: Reticulocyte Count 1.1 % (0.4-2.8)
[2024-12-19 15:00] LABS: Folate 8.3 ng/ml (2.76-20); Vitamin B12 522 pg/ml (239-931)
[2024-12-19 15:22] LABS: Urine Albumin 1+ (Neg - Trace); Urine Bilirubin Negative (Negative); Urine Character Clear (Clear); Urine Color Yellow; Urine Glucose Negative (Negative); Urine Ketone Negative (Negative); Urine Leukocyte 1+ (Negative); Urine Nitrite Negative (Negative); Urine Occult Blood Negative (Negative); Urine Urobilinogen Negative (Neg - 1+)
[2024-12-19 16:03] LABS: Urine Squamous Cell 0-2 /LPF (Few)
[2024-12-19 16:05] LABS: Urine Bacteria Many (Negative)
[2024-12-19 16:11] LABS: Glucose - Point of Care 359 mg/dl (70-99)
--- NOTE | 2024-12-19 16:13 | CM ---
spoke with pt in room, PT is suggesting SNF. we discussed rehabs and he would like [facility], [facility] or [facility]. i called his daughter, sara, and she is also in agreement with this plan. cm to follow up tomorrow with avail beds and
decision from pt.
[2024-12-19 16:37] LABS: Urine Sodium 50 mmol/L (30-90)
[2024-12-19] MEDS: NOVOLOG FLEXPEN-MODERATE RESISTANCE 9 UNITS SC (18:25)
[2024-12-19] MEDS: NOVOLOG FLEXPEN 3 UNITS SC (18:26)
[2024-12-19] MEDS: LIPITOR 40 MG PO (20:48)
[2024-12-19 21:50] LABS: Glucose - Point of Care 202 mg/dl (70-99)
[2024-12-19] MEDS: LANTUS 0.1 UNITS SC (21:53)
[2024-12-20] VITALS (8 sets, daily range): BP systolic 125–144; BP diastolic 63–76; PULSE 61; O2SAT 95; BMI 37.2
[2024-12-20 04:38] LABS: Hematocrit 28.9 % (39.0-52.0); Hemoglobin 9.8 g/dL (13.0-18.0); Mean Corp Hgb Conc. 33.9 g/dL (33.0-37.0); Mean Corpuscular Hgb 28.3 pg (27.0-31.0); Mean Corpuscular Volume 83.5 fL (80.0-94.0); Mean Platelet Volume 10.8 fL (7.4-10.4); Platelet Count 232 10^3/uL (130-400); Red Blood Cell Count 3.46 10^6/uL (4.70-6.10); Red Cell Dist. Width 13.6 % (11.5-14.5); White Blood Cell Count 6.4 10^3/uL (4.8-10.8)
[2024-12-20 04:59] LABS: Blood Urea Nitrogen 62 mg/dl (9-20); Calcium 9.7 mg/dl (8.4-10.2); Carbon Dioxide 29 mmol/L (22-30); Chloride 95 mmol/L (98-107); Estimated Creatinine Clearance 20 ml/min; Glucose 76 mg/dl (70-99); Magnesium 2.4 mg/dl (1.6-2.3); Potassium 3.7 mmol/L (3.5-5.1); Sodium 136 mmol/L (135-145); eGFR 15.15
--- NOTE | 2024-12-20 05:39 | PTCARENOTE ---
Pt did not urinate this shift, denies pain or discomfort. Bladder scan for 168ml
--- NOTE | 2024-12-20 07:03 | W.PN.CD ---
Today's Communication / Plan
-
Renal US.
Continue all current cardiac medications.
Holding all nephrotoxic agents.
Depending on renal US, possible rubio catheter placement?
Impression / Plan
-
Impression/Plan: 74M with CAD (prior CABG), HTN, HLD and NIDDM admitted with NSTEMI and new HFmEF (LVEF 45-50%), now with acute kidney injury.
#Hypoxic respiratory failure
-Acute, improving.
-SARS-CoV-2 negative, influenza negative.
-CXR shows pulmonary edema, but also an opacity in the suprahilar right upper lobe. CT chest as there is concern for potential malignancy.
#HFmEF
-Acute, threat to life, improving but requires intensive monitoring.
-LVEF 40-50%.
-There is a question of adherence at home.
-Daily weights.
-Replace K+. Goal K > 4, Mg > 2, Ca > 8 and PO4 > 2.5.
-GDMT as hemodynamics will tolerate. SGLT2i and ARNi are cost prohibitive.
-Continue metoprolol.
-Hold diuretics.
#NSTEMI/CAD
-Acute, threat to life.
-History of CAD s/p CABG (he reports 5 jumps, unknown anatomy, but they did use a left radial graft).
-Chest pain-free.
-Troponin peaked at 16.4.
-Complex coronary anatomy - essentially living off of the ALATORRE/LAD which backfills the [place] D3, the y-graft SVG to D3, the LRA to OM and thus the RPDA via collaterals. There is a 70% LAD lesion distal to D3 but proximal to the ALATORRE anastomosis.
-I discussed the situation with his outpatient project engineer (Dr. Shannon) and the patient. Overall, this is VERY high risk anatomy for any intervention ([place] LAD into the D3 vs. retrograde intervention via ALATORRE graft).
-We will focus on medical management of NSTEMI (DAPT, OMT/GDMT, secondary prevention) and treatment of his hypoxic respiratory failure.
-Start aspirin 81 mg daily (in addition to home clopidogrel).
#TONY
-Acute.
-Creatinine 1.0 --> 2.1 --> 4.0.
-DDx includes functional hypovolemia, contrast nephropathy, medication related (ACEI, furosemide) or AIN.
-Check renal US.
-Hold diuretics, ACEI.
-Nephrology involved.
#Hypertension
-Chronic, multidrug, stable.
-Continue to hold amlodipine.
-Hold ACEI/spironolactone in light of TONY.
#Anemia
-Unknown duration.
-Normal MCV.
-Ferritin > 100, normal B12/folate, thiamine pending.
-Heme occult pending.
#HLD
-Chronic, stable.
-Total cholesterol = 162, LDL = 81, HDL = 47, Triglycerides = 170.
-LDL above goal on atorvastatin, possible nonadherence.
-Goal LDL < 55, Triglycerides < 150.
#NIDDM
-Chronic, stable.
-HgbA1c 6.5%.
-Management per primary service.
-Patient will continue to benefit from GLP-1 analog.
#Obesity
-Chronic.
-Semaglutide as noted.
Outpatient project engineer: Dr. Shannon
Subjective/Interval History:
Patient now agreeable to SGLT2i/ARNi per nursing notes.
Weight is up 1.8 kg.
BP stable.
SaO2 stable without O2.
Creatinine up to 4.0.
Minimal UOP.
Patient was off of floor and could not be examined.
DATA:
Echocardiogram, 12/17/2024:
CONCLUSIONS
Mildly reduced left ventricular systolic function. LV ejection fraction is 45-
50% by visual estimate.
Hypokinesis of the basal to mid septal, inferior and mid to distal
inferolateral wall.
Stage II diastolic dysfunction suggestive of abnormal relaxation and increased
filling pressures.
Mild pulmonary hypertension.
No prior study available for comparison.
CXR, 12/17/2024:
IMPRESSION:
1. MILD ACUTE INTERSTITIAL and ALVEOLAR CARDIOGENIC PULMONARY EDEMA.
2. Mild cardiomegaly.
3. Previous CABG surgery.
4. 3.8 cm asymmetric opacity in the suprahilar right upper lobe. Diagnostic possibilities are (1) right upper lobe lung cancer, (2) asymmetric pulmonary edema, or (3) infectious or inflammatory pneumonitis.
Cardiac Catheterization, 12/18/2024:
CONCLUSIONS
1. Right dominant circulation with severe, multivessel disease, status post CABG (ALATORRE to LAD, LRA to OM, SVG Y graft off of LRA to D1, SVG to RPDA, SVG to unknown) with a patent ALATORRE graft and chronic total occlusion of all the aortic grafts at
their origin, but patent LRA and SVG Y graft with complicated flow pattern detailed below. The LAD is chronically diffusely diseased in its proximal midportion, ultimately chronically totally occluded after the small second diagonal, the circumflex
is chronically totally occluded in its proximal margin and the RCA is occluded at its midportion. There is an additional 70% lesion in the distal LAD, distal to the origin of D3 but proximal to the anastomosis of the ALATORRE graft.
2. The SVG to the RCA and the SVG to unknown artery are chronically totally occluded. The left radial artery is chronically totally occluded at its origin but patent in its proximal margin, including the Y graft origin to the first diagonal. The
patient's coronary blood flow is complicated and proceeds as follows: The ALATORRE graft supplies the LAD which backfills the third diagonal (through a 70% LAD stenosis). The SVG to the third diagonal is subsequently filled retrograde back to the level
of the chronic total occlusion of the left radial artery graft anastomosis. The left radial artery graft is subsequently filled from flow from the diagonal and supplies the obtuse marginal. The RPDA is supplied by collaterals from the left
circulation.
3. Moderately elevated filling pressures (LVEDP = 21 mmHg at 105.7 kg).
Physical Exam
Vital Signs/Labs
Vital Signs
Temp Pulse Resp BP Pulse Ox
36.6 C 67 18 140/76 93
12/20/24 03:54 12/20/24 06:00 12/20/24 03:54 12/20/24 03:55 12/20/24 03:54
12/18/24 12/19/24 12/20/24
11:59 11:59 11:59
Actual Weight 106.1 kg 105.9 kg 107.7 kg
12/20/24 04:27
12/20/24 04:27
APTT Cancelled 12/18/24 12:40
Magnesium 2.4 mg/dl (1.6-2.3) H 12/20/24 04:27
Triglycerides 170 mg/dl (10-149) H 12/17/24 05:15
LDL Cholesterol, Calc 81 mg/dl 12/17/24 05:15
VLDL Cholesterol, Calc 34 mg/dl (0-30) H 12/17/24 05:15
HDL Cholesterol 47 mg/dl 12/17/24 05:15
12/16/24
17:57
Fjj-F-Cmlocanwzlq Pept 4660
LAB Results
12/17/24 12/17/24 12/18/24
09:33 16:45 09:35
Troponin I 16.000 H* 13.500 H* 7.940 H*
Physical Exam
Patient was off floor and could not examined.
Data Reviewed
-
Date of Service: December 20, 2024
Medical Decision Making: Reviewed Test Results, Tests Ordered, Independent Historian Assessment, Test Interpretation and Review of Case with other Provider
EKG: Tracing Personally Visualized and interpreted and Report Reviewed by me
Echo: Report Reviewed by me
X-Ray/CT/US/MRI/NUC/PET: Image Personally Visualized and interpreted and Report Reviewed by me
Medical Tests (PFT, Pathology etc): Image Personally Visualized and interpreted and Report Reviewed by me
Labs: Labs Reviewed by me
Old Records: Reviewed
[2024-12-20] MEDS: NOVOLOG FLEXPEN SC (08:28)
[2024-12-20 08:35] LABS: Glucose - Point of Care 99 mg/dl (70-99)
[2024-12-20] MEDS: DITROPAN 5 MG PO ×2 (08:36→20:41)
[2024-12-20] MEDS: COLCHICINE 0.3 MG PO (08:37)
[2024-12-20] MEDS: TRICOR 48 MG PO (08:37)
[2024-12-20] MEDS: TOPROL XL 100 MG PO (08:38)
[2024-12-20] MEDS: PROSCAR 5 MG PO (08:38)
[2024-12-20] MEDS: PLAVIX 75 MG PO (08:38)
[2024-12-20] MEDS: ASPIR LOW (ENTERIC COATED) 81 MG PO (08:38)
[2024-12-20] MEDS: FLOMAX 0.4 MG PO (08:38)
[2024-12-20] MEDS: OCEAN, SALINE MIST 1 SPRAYS NASAL (08:39)
[2024-12-20] MEDS: NOVOLOG FLEXPEN-MODERATE RESISTANCE SC ×2 (08:40→19:05)
--- NOTE | 2024-12-20 09:14 | W.PN.HOSP.TC ---
Addendum entered and electronically signed by Yair Drew MD 12/20/24 13:24:
Seen and examined by me independently in collaboration with the medical claims representative Dr. Hammond.
Lab data and imaging data reviewed.
Addendum as below :
Patient denies shortness of breath. Remains on room air. Chest is clear. Weight is 4 pounds up. On treatments for acute heart failure. Diuretics on hold due to TONY. Continue to follow weights daily.
CAD with non-ST elevation AL-asymptomatic without chest pain-status post cath which showed multivessel disease and the recommendation is for medical therapy which I would continue.
Right upper lobe opacity noted and there was a concern about pneumonia in the differentials on empirical antibiotics. Antibiotics was also to cover the left maxillary sinusitis. Repeat chest x-ray in a.m. and if there is resolution of right upper
lobe infiltrate it may more be edema and de-escalate antibiotics.
TONY without any obstructive uropathy. Unclear if it is diuresis related or ELIAS. Follow I&O's closely. Patient would rather not have Latham catheter. Nephrology following.
Possible gout/pseudogout involving the left ankle in the ring and middle finger of the left metacarpal phalangeal joints. Patient feels improved with colchicine which which is getting dosed renally. Increasing uric acid levels noted.
Discussed with nephrology today.
Discussed with RN.
Total time spent on today's encounter was 52 minutes which included time spent in counseling the patient/family regarding diagnosis and treatment plan as listed above, goals of care, and symptom management. Case was discussed with nursing staff,
specialists, and care coordinators/case management. All labs and imaging personally reviewed by me. Remainder the time spent in detailed review of previous records, lab data, imaging, and other medical provider documentation.
Original Note:
Today's Communication/Plan
-
Continue monitoring urine output, IV fluids with careful monitoring of respiratory status.
Assessment / Plan
Assessment / Plan
Assessment:
74-year-old male with a past medical history of CAD status post CABG 13 years ago, tnr-lidjmhh-cxcsmepuj diabetes, hypertension presented to the [facility] emergency department on 12/16/2024 due to recent increased shortness of breath.
Patient has been having worsening cough for about a week and reported having a fever a day ago. Yesterday patient had gone to his primary care doctor for evaluation of his recent upper respiratory symptoms and was started on antibiotics. When he
got home patient's daughter noticed that he was very short of breath and took him to the emergency department. In the emergency department he had fever with a temperature of 99.3, markedly hypoxic and was started on oxygen supplementation with 10 L
of oxygen. Patient's ECG showed sinus tachycardia with PVCs, ST changes inferolaterally. However patient's troponin levels continued to increase. Chest x-ray done in the ED showed marked pulmonary edema. Cardiology was consulted and patient was
started on IV Lasix. Patient was admitted to the IMU for further management as he required increased supplemental oxygen. Patient underwent echocardiogram which showed mild reduction in systolic function. Patient underwent successful cardiac
catheterization yesterday which showed severe coronary artery disease which was recommended to only be treated via medical approach. Recommendation was to continue diuresis. Patient's oxygen levels were improving and he was eventually weaned off
to room air. On CT sinuses, near complete opacification of the left maxillary sinus was noted, ENT was consulted. Determined that no surgical intervention was necessary at this time. Patient developed worsening kidney function post cardiac
catheterization, likely due to contrast. Nephrology was consulted, patient continued to not produce as much urine. Kidney function continue to worsen.
Chest X-Ray (12/16/2024):
Cardiac silhouette size appears enlarged. Diffusely increased interstitial markings with indistinctness of the central pulmonary vasculature. Radiographic findings are highly suggestive of interstitial edema pattern, most likely on the basis of
congestive heart failure.
Differential consideration of bilateral interstitial pneumonia, felt to be less likely.
CR Chest Portable - 1 View (12/17/2024):
1. MILD ACUTE INTERSTITIAL and ALVEOLAR CARDIOGENIC PULMONARY EDEMA.
2. Mild cardiomegaly.
3. Previous CABG surgery.
4. 3.8 cm asymmetric opacity in the suprahilar right upper lobe. Diagnostic possibilities are (1) right upper lobe lung cancer, (2) asymmetric pulmonary edema, or (3) infectious or inflammatory pneumonitis.
Mildly reduced left ventricular systolic function. LV ejection fraction is 45-
50% by visual estimate.
Hypokinesis of the basal to mid septal, inferior and mid to distal
inferolateral wall.
Stage II diastolic dysfunction suggestive of abnormal relaxation and increased
filling pressures.
Mild pulmonary hypertension.
No prior study available for comparison.
CT Sinuses W/o Iv Contrast (12/19/2024):
Near complete opacification of the left maxillary sinus. Loss of definition of the superior medial bony wall the left maxillary sinus, with suggestion of slight expansion of the superior medial left maxillary sinus. Findings would be suggestive of
mucocele.
Significant opacification of the mid to superior aspect of the left nasal cavity with contiguous involvement of the left ethmoid sinuses and the central to left frontal sinuses.
As warranted, consider consultation with ENT.
Plan:
# Acute hypoxic respiratory failure secondary to heart failure with mildly reduced ejection fraction
-Chest x-ray showed interstitial edema, recent weight gain and peripheral edema along with noncompliance with his Lasix 40mg daily
-BNP elevated at 4887
-Echo as above
-Cardiology consulted, input appreciated
- Lasix held due to worsening kidney function
-Daily weights and I/O's
- Holding lisinopril due to kidney function
-Continue metoprolol XL 100 mg
- Holding pioglitazone due to kidney function
-Now on room air, breathing much improved
# Possible pneumonia due to recent upper respiratory symptoms
-Had a low-grade temperature in the ED, also reported fever yesterday
-Afebrile since admission
-Blood cultures negative
-COVID-negative, flu negative
-No leukocytosis, less likely pneumonia
-Procalcitonin 0.72 (elevated)
-Cough suppression and nebs as needed
-Continue doxycycline and ceftriaxone for possible pneumonia
-Will repeat chest x-ray in a day, if resolution seen, most likely due to pulmonary edema rather than pneumonia and will stop antibiotics at that time
# TONY likely secondary to contrast versus Lasix
- Nephrology consulted, input appreciated
- Creatinine was 2.1 yesterday, increased to 4.0 today
- FeNA shows most likely pre-renal etiology
- Renal U/S ordered, not showing any abnormalities
- Monitor strict I/Os-not producing much urine
- Continue bladder scan
- Straight cath as needed
- Holding off on Latham as patient says that he will prefer not to have one
- Started on IV fluids by nephrology with strict monitoring
- Holding nephrotoxic drugs
# Elevated troponins possibly secondary to coronary artery disease
-Peaked
-Patient on Plavix, given dose of aspirin 325
-Heparin drip discontinued
-No chest pain
-LDL cholesterol 81, triglycerides a bit elevated at 170
-Cardiology consulted, input appreciated
-Cardiac cath showed severe coronary disease that they could not intervene with surgically
-Plan is to continue management medically
-Will continue metoprolol and nitroglycerin paste as per cardiology
-Holding lisinopril due to worsening kidney function
-Discontinued amlodipine
# Possible abscess in the left mid maxillary area
-Contacted OM[facility], was recommended to follow-up with outpatient setting
-Patient was given information and will follow-up with him in outpatient setting
-CT sinuses showed as above
-ENT was consulted, input appreciated
-No surgical intervention at this time, will continue antibiotics
-Will be continuing ceftriaxone and doxycycline
# Hyperuricemia with possible acute gout flare causing pain in extremities
- Uric acid level is elevated
- Started on colchicine yesterday 0.6 mg
- Dose reduced today to 0.3 mg due to worsening kidney function
# Iyk-ygnlszb-uvlxcswjj diabetes type 2
-Continue holding glimepiride
-Started on aspart 3 units, glargine 10 units
-Moderate Sliding scale insulin, Accu-Cheks
-HbA1c 6.5%
# Hypomagnesemia
-Repleted
-Monitor and replete as necessary
Full code
DVT prophylaxis: SCDs
Anticipated Discharge: Within 24 hours
Subjective/Interval History
-
Date of Service: December 20, 2024
Patient says that he has been feeling well, reports no acute concerns. Has been breathing well with no shortness of breath and no chest pain still. Complains of not having the urge to urinate, but has not really urinated much yesterday. Had a
bowel movement which was more liquidy and different in color. Otherwise reports no complaints.
Objective Data
-
Labs:
Laboratory Results
12/20/24
04:27
WBC 6.4
Hgb 9.8 L
Hct 28.9 L
Plt Count 232
Sodium 136
Potassium 3.7
Chloride 95 L
Carbon Dioxide 29
BUN 62 H
Creatinine 4.0 H
Glucose 76
Calcium 9.7
Vital Signs:
Vital Signs
Temp Pulse Resp BP Pulse Ox
98.2 F 68 16 132/67 93
12/20/24 06:54 12/20/24 06:54 12/20/24 06:54 12/20/24 06:54 12/20/24 06:54
I&O
12/19/24 12/20/24 12/21/24
06:59 06:59 06:59
Intake Total 2400 / 2400 600 / 600
Output Total 1900 / 1900 130 / 130
Balance 500 / 500 470 / 470
Review of Systems
-
History Source: Patient
Constitutional: Denies Fever or Chills
EENT: Reports Mouth Pain (Teeth pain, left upper maxillary)
Respiratory: Denies Cough, Trouble Breathing or Wheezing
Cardiac: Denies Chest Pain, Palpitations or Syncope
Abdomen/GI: Denies Abdominal Pain, Nausea or Vomiting
Genitourinary: Reports No Symptoms
Musculoskeletal: Reports Muscle Pain (Pain is improved from yesterday after initiating colchicine) and Edema (Bilateral lower extremity edema)
Skin: Reports No Symptoms
Neuro: Reports No Symptoms
Physical Exam
-
General: Well Developed, Well Nourished and Conversant
HEENT: Normocephalic and Other (Cracked frontal teeth, tenderness is noted left upper maxillary, T12 fracture and mild thickening of the gum); Negative Oxygen
Respiratory: Clear to Auscultation and Non Labored Respirations
Cardiac: Regular Rhythm (Sinus rhythm) and S1/S2; Negative Tachycardic
GI: Soft, Nontender and Nondistended
Musculoskeletal: Edema, Right Lower Extrem (1+) and Edema, Left Lower Extrem (1+)
Skin: Warm
Neuro: Awake, Alert, Oriented and AO x 3
Psych: Calm
Data Reviewed
-
Labs: Labs Reviewed by me, Discussed with Physician, Discussed with Nurse and Discussed with Patient
[2024-12-20] MEDS: VIBRAMYCIN 260 MG IV ×2 (09:29→22:10)
--- NOTE | 2024-12-20 10:23 | W.PN.NEPH.PH ---
Today's Communication / Plan
-
Start normal saline for 24 hours
Assessment/Plan
-
Impression:
Acute kidney injury
Congestive heart failure decompensated (EF 45-50%)
Non-ST elevation [place]
History of hypertension
Diabetes
Coronary artery disease prior history of CABG/status postcardiac catheterization on 12/18/2024 (LVEDP 18- no PCI)
BPH
Plan:
TONY:
-weights down with diuresis
-Holding EUNICE
-Possible contrast-induced renal failure following cardiac catheterization on 12/18/2024
-Patient has remained hemodynamically stable
No obstructive pathology on imaging.
Making very little urine.
Urinalysis 3-6 red blood cells 1+ albumin many bacteria but no white blood cells
I will start normal saline at 125 cc/h with close monitoring of his pulmonary status.
Discussed with the hospitalist service
-
-
Date of Service: December 20, 2024
CC / HPI / ROS
-
Chief Complaint:
Acute kidney injury
History of Present Illness:
Acute kidney injury status post cardiac catheterization with significant disease medical management
Creatinine normal on admission increased up to 4 with oligoanuria
Review of Systems:.
No chest pain or shortness of breath with minimal urine output today
Labs
-
Labs:
WBC 6.4 10^3/uL (4.8-10.8) 12/20/24 04:27
RBC 3.46 10^6/uL (4.70-6.10) L 12/20/24 04:27
Hgb 9.8 g/dL (13.0-18.0) L 12/20/24 04:27
Hct 28.9 % (39.0-52.0) L 12/20/24 04:27
Plt Count 232 10^3/uL (130-400) 12/20/24 04:27
Sodium 136 mmol/L (135-145) 12/20/24 04:27
Potassium 3.7 mmol/L (3.5-5.1) 12/20/24 04:27
Chloride 95 mmol/L (98-107) L 12/20/24 04:27
Carbon Dioxide 29 mmol/L (22-30) 12/20/24 04:27
BUN 62 mg/dl (9-20) H 12/20/24 04:27
Creatinine 4.0 mg/dL (0.7-1.3) H 12/20/24 04:27
eGFR 15.15 12/20/24 04:27
Glucose 76 mg/dl (70-99) 12/20/24 04:27
Calcium 9.7 mg/dl (8.4-10.2) 12/20/24 04:27
Phosphorus 3.9 mg/dl (2.5-4.5) 12/18/24 06:08
Ddm-A-Gjsqhegithb Pept 4660 pg/ml 12/16/24 17:57
Albumin 4.7 g/dl (3.5-5.0) 12/16/24 17:57
Physical Exam
-
Vital Signs:
Vital Signs
Temp Pulse Resp BP Pulse Ox
98.2 F 60 16 132/67 93
12/20/24 06:54 12/20/24 10:00 12/20/24 06:54 12/20/24 06:54 12/20/24 06:54
Respiratory:: Bilateral: CTA
Lung Excursion:: Normal
Abdomen:: Soft
Bowel Sounds:: Normal
Extremity Edema:: None: Bilateral:
Latham Catheter: No
[2024-12-20] MEDS: ROCEPHIN 1000 MG IV (10:33)
[2024-12-20] MEDS: STERILE WATER FOR INJECTION 10 ML IV (10:33)
[2024-12-20] MEDS: NSS 1000 IV ×2 (10:37→19:05)
--- NOTE | 2024-12-20 10:56 | PTCARENOTE ---
Pt has not voided today. He denies urge to void and he denies any bladder discomfort. He says he has no appetite and did not want to eat breakfast. IVF nss at 125ml hr ordered and now infusing. Pt aware to use urinal and that we will be measuring
his urine output. He went for renal u/s this am.
[2024-12-20] MEDS: NOVOLOG FLEXPEN-MODERATE RESISTANCE 1 UNITS SC (13:33)
[2024-12-20 13:34] LABS: Glucose - Point of Care 161 mg/dl (70-99)
[2024-12-20] MEDS: NOVOLOG FLEXPEN 3 UNITS SC ×2 (13:34→19:05)
[2024-12-20 18:50] LABS: Glucose - Point of Care 129 mg/dl (70-99)
[2024-12-20] MEDS: TYLENOL 650 MG PO (20:41)
[2024-12-20] MEDS: DUONEB 3 ML INH (21:07)
[2024-12-20 22:04] LABS: Glucose - Point of Care 154 mg/dl (70-99)
[2024-12-20] MEDS: LIPITOR 40 MG PO (22:15)
[2024-12-20] MEDS: LANTUS 0.1 UNITS SC (22:15)
[2024-12-20] MEDS: TYLENOL 325 MG PO (22:15)
--- NOTE | 2024-12-20 23:40 | PTCARENOTE ---
assumed care of patient at the change of shift. AAOx3. denies any cp/sob. appears dyspneic on exertion. expiratory wheeze noted. patient states feeling it at times. TT to respiratory-PRN DuoNeb given, see mar. patient states improvement after. 95%
on RA. + harsh/productive cough. SR on tele 60s-70s. bp stable. IVF infusing per order. patient complaining of L sinus and L hand pain. PRN tylenol given with some relief. updated Nesha rosenthal ENGINEER ASSISTANT. extra dose of Tylenol given, see mar.
educated patient to inform RN with any other changes overnight. comfort measures provided. call mckinney within reach. makes needs known.
[2024-12-21 04:18] VITALS: BP 130/73
[2024-12-21 04:38] LABS: Hematocrit 23.4 % (39.0-52.0); Hemoglobin 8.1 g/dL (13.0-18.0); Mean Corp Hgb Conc. 34.6 g/dL (33.0-37.0); Mean Corpuscular Hgb 28.7 pg (27.0-31.0); Mean Platelet Volume 10.8 fL (7.4-10.4); Platelet Count 214 10^3/uL (130-400); Red Blood Cell Count 2.82 10^6/uL (4.70-6.10); Red Cell Dist. Width 13.3 % (11.5-14.5); White Blood Cell Count 5.3 10^3/uL (4.8-10.8)
[2024-12-21] MEDS: NSS 1000 IV ×2 (04:38→12:42)
[2024-12-21 04:46] VITALS: BMI 38.1
[2024-12-21 05:07] LABS: ALT (SGPT) 20 U/L (0-50); AST (SGOT) 20 U/L (17-59); Alkaline Phosphatase 55 U/L (38-126); Blood Urea Nitrogen 73 mg/dl (9-20); Calcium 8.8 mg/dl (8.4-10.2); Carbon Dioxide 24 mmol/L (22-30); Chloride 97 mmol/L (98-107); Estimated Creatinine Clearance 17 ml/min; Glucose 108 mg/dl (70-99); Potassium 3.5 mmol/L (3.5-5.1); Sodium 133 mmol/L (135-145); Total Bilirubin 0.4 mg/dl (0.2-1.3); Total Protein 5.6 g/dl (6.3-8.2); eGFR 12.49
--- NOTE | 2024-12-21 05:26 | PTCARENOTE ---
bed/bath completed this morning. patient had a soft/brown BM-unable to heme test. PVR this morning 160cc. patient denies any bladder discomfort. yellow urine in the urinal.
hgb 8.1 this morning. (previously 9.8). no signs of bleeding. R groin site soft/non tender. updated Nesha rosenthal JEWELRY SALES REPRESENTATIVE.
[2024-12-21 07:29] VITALS: BP 145/66
[2024-12-21 07:32] LABS: Glucose - Point of Care 149 mg/dl (70-99)
[2024-12-21] MEDS: NOVOLOG FLEXPEN-MODERATE RESISTANCE SC (07:52)
--- NOTE | 2024-12-21 08:47 | W.PN.HOSP.TC ---
Today's Communication/Plan
-
DC ceftriaxone. Continue doxycycline-changed to p.o.
Continue with IV fluids and follow creatinine closely.
Assessment / Plan
Assessment / Plan
Assessment:
74-year-old male with a past medical history of CAD status post CABG 13 years ago, jdi-bnhtldr-[id number] diabetes, hypertension presented to the [facility] emergency department on 12/16/2024 due to recent increased shortness of breath.
Patient has been having worsening cough for about a week and reported having a fever a day ago. Yesterday patient had gone to his primary care doctor for evaluation of his recent upper respiratory symptoms and was started on antibiotics. When he
got home patient's daughter noticed that he was very short of breath and took him to the emergency department. In the emergency department he had fever with a temperature of 99.3, markedly hypoxic and was started on oxygen supplementation with 10 L
of oxygen. Patient's ECG showed sinus tachycardia with PVCs, ST changes inferolaterally. However patient's troponin levels continued to increase. Chest x-ray done in the ED showed marked pulmonary edema. Cardiology was consulted and patient was
started on IV Lasix. Patient was admitted to the IMU for further management as he required increased supplemental oxygen. Patient underwent echocardiogram which showed mild reduction in systolic function. Patient underwent successful cardiac
catheterization yesterday which showed severe coronary artery disease which was recommended to only be treated via medical approach. Recommendation was to continue diuresis. Patient's oxygen levels were improving and he was eventually weaned off
to room air. On CT sinuses, near complete opacification of the left maxillary sinus was noted, ENT was consulted. Determined that no surgical intervention was necessary at this time. Patient developed worsening kidney function post cardiac
catheterization, likely due to contrast. Nephrology was consulted, patient continued to not produce as much urine. Kidney function continue to worsen.
Plan:
# Acute hypoxic respiratory failure secondary to heart failure with mildly reduced ejection fraction
-Chest x-ray showed interstitial edema, recent weight gain and peripheral edema along with noncompliance with his Lasix 40mg daily
-BNP elevated at 4887
-Echo as above
-Cardiology consulted, input appreciated
- Lasix held due to worsening kidney function
- Daily weights and I/O's
- Holding lisinopril due to kidney function
-Continue metoprolol XL 100 mg
- Holding pioglitazone due to kidney function
-Now on room air, breathing much improved
# ?RUL pneumonia due to recent upper respiratory symptoms
-Had a low-grade temperature in the ED, also reported fever yesterday
-Afebrile since admission
-Blood cultures negative
-COVID-negative, flu negative
-No leukocytosis, less likely pneumonia. Repeat two-view x-ray shows rapid resolution of right upper lobe opacity suggesting more of fluid. Discontinue antibiotics for pneumonia.
-Procalcitonin 0.72 (elevated) may be secondary to left maxillary sinusitis
-Cough suppression and nebs as needed
-Continue doxycycline but DC ceftriaxone
# TONY likely secondary to contrast versus Lasix
- Nephrology consulted, input appreciated
- Creatinine increased to 4.70 today
- FeNA shows most likely pre-renal etiology
- Renal U/S ordered, not showing any abnormalities
- Monitor strict I/Os-not producing much urine
- Continue bladder scan
- Straight cath as needed
- Holding off on Latham as patient says that he will prefer not to have one
- Started on IV fluids by nephrology with strict monitoring
- Holding nephrotoxic drugs
# Elevated troponins possibly secondary to coronary artery disease
-Peaked
-Patient on Plavix, given dose of aspirin 325
-Heparin drip discontinued
-No chest pain
-LDL cholesterol 81, triglycerides a bit elevated at 170
-Cardiology consulted, input appreciated
-Cardiac cath showed severe coronary disease that they could not intervene with surgically
-Plan is to continue management medically
-Will continue metoprolol and nitroglycerin paste as per cardiology
-Holding lisinopril due to worsening kidney function
-Discontinued amlodipine
# Left maxillary sinusitis
-Appreciate ENT input. Recommend antibiotic regimen and follow as an outpatient. Improved left maxillary pain.
-Contacted [facility] for loss of left upper tooth, was recommended to follow-up with outpatient setting
-Patient was given information and will follow-up with him in outpatient setting
-Continue doxycycline
# Hyperuricemia with possible acute gout flare causing pain in extremities
- Uric acid level is elevated
- Started on colchicine yesterday 0.6 mg
- Dose reduced today to 0.3 mg due to worsening kidney function
-Improving pain in the joints
# Vcb-zvrrmsj-ujhdirrqc diabetes type 2
-Continue holding glimepiride/oral hypoglycemic agents
-Started on aspart 3 units, glargine 10 units
-Moderate Sliding scale insulin, Accu-Cheks
-HbA1c 6.5%
-No hypoglycemia is noted.
Full code
DVT prophylaxis: SCDs
Anticipated Discharge: > 48 hours
Subjective/Interval History
-
Date of Service: December 21, 2024
Couldn't sleep much due to interruptions.
Denies shortness of breath. Remains off of oxygen. Denies any cough.
No nausea vomiting with tolerating diet.
Urinating fine without difficulty.
Has left the index and the middle finger joint pain is improving. Has left ankle pain much improved.
Objective Data
-
Labs:
Laboratory Results
12/21/24
04:25
WBC 5.3
Hgb 8.1 L
Hct 23.4 L
Plt Count 214
Sodium 133 L
Potassium 3.5
Chloride 97 L
Carbon Dioxide 24
BUN 73 H
Creatinine 4.7 H*
Glucose 108 H
Calcium 8.8
Total Bilirubin 0.4
AST 20
ALT 20
Alkaline Phosphatase 55
Vital Signs:
Vital Signs
Temp Pulse Resp BP Pulse Ox
97.8 F 62 18 130/73 94
12/21/24 07:35 12/21/24 04:18 12/21/24 07:35 12/21/24 04:18 12/21/24 07:35
I&O
12/20/24 12/21/24 12/22/24
06:59 06:59 06:59
Intake Total 600 / 600 1950 / 1950
Output Total 130 / 130 850 / 850
Balance 470 / 470 1100 / 1100
Review of Systems
-
Constitutional: Denies Fever
EENT: Denies Sore Throat
Respiratory: Denies Cough or Trouble Breathing
Neuro: Denies Dizzy
Physical Exam
-
General: Comfortable
HEENT: Moist Mucous Membranes
Respiratory: Clear to Auscultation
Cardiac: Regular Rhythm and S1/S2
GI: Soft
Musculoskeletal: Other (Improved swelling of the left index and middle finger metacarpophalangeal joint. Improved range of motion.)
Neuro: AO x 3
Psych: Calm
Data Reviewed
-
Labs: Labs Reviewed by me
[2024-12-21] MEDS: FLOMAX 0.4 MG PO (08:51)
[2024-12-21] MEDS: TRICOR 48 MG PO (08:51)
[2024-12-21] MEDS: PLAVIX 75 MG PO (08:51)
[2024-12-21] MEDS: TOPROL XL 100 MG PO (08:51)
[2024-12-21] MEDS: DITROPAN 5 MG PO ×2 (08:51→19:27)
[2024-12-21] MEDS: PROSCAR 5 MG PO (08:52)
[2024-12-21] MEDS: COLCHICINE 0.3 MG PO (08:52)
[2024-12-21] MEDS: TYLENOL 650 MG PO ×2 (08:54→19:28)
[2024-12-21] MEDS: ASPIR LOW (ENTERIC COATED) 81 MG PO (08:54)
[2024-12-21] MEDS: VIBRAMYCIN 260 MG IV (08:55)
[2024-12-21] MEDS: NOVOLOG FLEXPEN 3 UNITS SC ×2 (09:08→18:29)
--- NOTE | 2024-12-21 09:11 | W.PN.CD ---
Today's Communication / Plan
-
-Holding Lasix and lisinopril.
-Avoid any nephrotoxic.
-Follow along nephrology.
Impression / Plan
-
Impression/Plan: 74M with CAD (prior CABG), HTN, HLD and NIDDM admitted with NSTEMI and new HFmEF (LVEF 45-50%), now with acute kidney injury.
#Hypoxic respiratory failure
-Acute, improving.
-SARS-CoV-2 negative, influenza negative.
-CXR shows pulmonary edema, but also an opacity in the suprahilar right upper lobe. CT chest as there is concern for potential malignancy.
#HFmEF
-Acute, threat to life, improving but requires intensive monitoring.
-LVEF 40-50%.
-There is a question of adherence at home.
-Daily weights.
-Goal K > 4, Mg > 2, Ca > 8 and PO4 > 2.5.
-GDMT as hemodynamics will tolerate. SGLT2i and ARNi are cost prohibitive.
-Continue metoprolol.
-Hold diuretics.
#NSTEMI/CAD
-Acute, threat to life.
-History of CAD s/p CABG (he reports 5 jumps, unknown anatomy, but they did use a left radial graft).
-Chest pain-free.
-Troponin peaked at 16.4.
-Complex coronary anatomy - essentially living off of the ALATORRE/LAD which backfills the [place] D3, the y-graft SVG to D3, the LRA to OM and thus the RPDA via collaterals. There is a 70% LAD lesion distal to D3 but proximal to the ALATORRE anastomosis.
-I discussed the situation with his outpatient resistance welder (Dr. Shannon) and the patient. Overall, this is VERY high risk anatomy for any intervention ([place] LAD into the D3 vs. retrograde intervention via ALATORRE graft).
-We will focus on medical management of NSTEMI (DAPT, OMT/GDMT, secondary prevention) and treatment of his hypoxic respiratory failure.
-Start aspirin 81 mg daily (in addition to home clopidogrel).
#TONY
-Acute.
-Creatinine 1.0 --> 2.1 --> 4.0 -->4.7
-DDx includes functional hypovolemia, contrast nephropathy, medication related (ACEI, furosemide) or AIN.
-renal US. 12/20/2024: Unremarkable sonographic appearance of kidneys. No hydronephrosis.
-Hold diuretics, ACEI. Giving fluids.
-Nephrology involved.
#Hypertension
-Chronic, multidrug, stable.
-Continue to hold amlodipine.
-Hold ACEI/spironolactone in light of TONY.
#Anemia
-Unknown duration.
-Normal MCV.
-Ferritin > 100, normal B12/folate, thiamine pending.
-Heme occult pending.
#HLD
-Chronic, stable.
-Total cholesterol = 162, LDL = 81, HDL = 47, Triglycerides = 170.
-LDL above goal on atorvastatin, possible nonadherence.
-Goal LDL < 55, Triglycerides < 150.
#NIDDM
-Chronic, stable.
-HgbA1c 6.5%.
-Management per primary service.
-Patient will continue to benefit from GLP-1 analog.
#Obesity
-Chronic.
-Semaglutide as noted.
Outpatient resistance welder: Dr. Shannon
Subjective/Interval History:
Patient now agreeable to SGLT2i/ARNi per nursing notes.
Weight is up 1.8 kg.
BP stable.
SaO2 stable without O2.
Creatinine up to 4.0.
Minimal UOP.
Patient was off of floor and could not be examined.
DATA:
Echocardiogram, 12/17/2024:
CONCLUSIONS
Mildly reduced left ventricular systolic function. LV ejection fraction is 45-
50% by visual estimate.
Hypokinesis of the basal to mid septal, inferior and mid to distal
inferolateral wall.
Stage II diastolic dysfunction suggestive of abnormal relaxation and increased
filling pressures.
Mild pulmonary hypertension.
No prior study available for comparison.
CXR, 12/17/2024:
IMPRESSION:
1. MILD ACUTE INTERSTITIAL and ALVEOLAR CARDIOGENIC PULMONARY EDEMA.
2. Mild cardiomegaly.
3. Previous CABG surgery.
4. 3.8 cm asymmetric opacity in the suprahilar right upper lobe. Diagnostic possibilities are (1) right upper lobe lung cancer, (2) asymmetric pulmonary edema, or (3) infectious or inflammatory pneumonitis.
Cardiac Catheterization, 12/18/2024:
CONCLUSIONS
1. Right dominant circulation with severe, multivessel disease, status post CABG (ALATORRE to LAD, LRA to OM, SVG Y graft off of LRA to D1, SVG to RPDA, SVG to unknown) with a patent ALATORRE graft and chronic total occlusion of all the aortic grafts at
their origin, but patent LRA and SVG Y graft with complicated flow pattern detailed below. The LAD is chronically diffusely diseased in its proximal midportion, ultimately chronically totally occluded after the small second diagonal, the circumflex
is chronically totally occluded in its proximal margin and the RCA is occluded at its midportion. There is an additional 70% lesion in the distal LAD, distal to the origin of D3 but proximal to the anastomosis of the ALATORRE graft.
2. The SVG to the RCA and the SVG to unknown artery are chronically totally occluded. The left radial artery is chronically totally occluded at its origin but patent in its proximal margin, including the Y graft origin to the first diagonal. The
patient's coronary blood flow is complicated and proceeds as follows: The ALATORRE graft supplies the LAD which backfills the third diagonal (through a 70% LAD stenosis). The SVG to the third diagonal is subsequently filled retrograde back to the level
of the chronic total occlusion of the left radial artery graft anastomosis. The left radial artery graft is subsequently filled from flow from the diagonal and supplies the obtuse marginal. The RPDA is supplied by collaterals from the left
circulation.
3. Moderately elevated filling pressures (LVEDP = 21 mmHg at 105.7 kg).
Physical Exam
Vital Signs/Labs
Vital Signs
Temp Pulse Resp BP Pulse Ox
97.8 F 62 18 130/73 94
12/21/24 07:35 12/21/24 04:18 12/21/24 07:35 12/21/24 04:18 12/21/24 07:35
12/20/24 12/21/24 12/22/24
06:59 06:59 06:59
Actual Weight 107.7 kg 110.2 kg
12/21/24 04:25
12/21/24 04:25
APTT Cancelled 12/18/24 12:40
Magnesium 2.4 mg/dl (1.6-2.3) H 12/20/24 04:27
Triglycerides 170 mg/dl (10-149) H 12/17/24 05:15
LDL Cholesterol, Calc 81 mg/dl 12/17/24 05:15
VLDL Cholesterol, Calc 34 mg/dl (0-30) H 12/17/24 05:15
HDL Cholesterol 47 mg/dl 12/17/24 05:15
12/16/24
17:57
Ixj-Y-Odymaydcuhh Pept 4660
LAB Results
12/18/24
09:35
Troponin I 7.940 H*
Physical Exam
Constitutional: No acute distress and Comfortable
EENT: Anicteric and Moist mucous membranes
Cardiovascular: Rhythm & rate is regular and Diastolic murmur absent
Respiratory: Respiratory effort normal
GI: Soft, Normal bowel sounds and Distention present
Neuro/Psych: Alert, Oriented and AO x 3
Data Reviewed
-
Date of Service: December 21, 2024
Medical Decision Making: Reviewed Test Results, Test Interpretation and Review of Case with other Provider
EKG: Tracing Personally Visualized and interpreted
Echo: Report Reviewed by me
Labs: Labs Reviewed by me
Old Records: Reviewed
[2024-12-21] MEDS: STERILE WATER FOR INJECTION IV (09:18)
[2024-12-21 12:16] VITALS: BP 133/74
[2024-12-21 13:03] LABS: Glucose - Point of Care 227 mg/dl (70-99)
--- NOTE | 2024-12-21 13:23 | W.PN.NEPH.PH ---
Today's Communication / Plan
-
Discontinue IV fluids
Assessment/Plan
-
Impression:
Acute kidney injury
Congestive heart failure decompensated (EF 45-50%)
Non-ST elevation OK
History of hypertension
Diabetes
Coronary artery disease prior history of CABG/status postcardiac catheterization on 12/18/2024 (LVEDP 18- no PCI)
BPH
Plan:
TONY:
-weights down with diuresis
-Holding EUNICE
-Possible contrast-induced renal failure following cardiac catheterization on 12/18/2024
-Patient has remained hemodynamically stable
No obstructive pathology on imaging.
Making very little urine.
Urinalysis 3-6 red blood cells 1+ albumin many bacteria but no white blood cells
Creatinine continues to increase despite IV fluids.
Will discontinue fluids for now.
Hopefully renal function starts to plateau.
Discussed the possibilities of dialysis with the patient but no urgency at this time.
-
-
Date of Service: December 21, 2024
CC / HPI / ROS
-
Chief Complaint:
Acute kidney injury
History of Present Illness:
Acute kidney injury status post cardiac catheterization with significant disease medical management
Creatinine normal on admission increased up to 4 with oligoanuria
Review of Systems:.
No chest pain or shortness of breath with minimal urine output today
Labs
-
Labs:
WBC 5.3 10^3/uL (4.8-10.8) 12/21/24 04:25
RBC 2.82 10^6/uL (4.70-6.10) L 12/21/24 04:25
Hgb 8.1 g/dL (13.0-18.0) L 12/21/24 04:25
Hct 23.4 % (39.0-52.0) L 12/21/24 04:25
Plt Count 214 10^3/uL (130-400) 12/21/24 04:25
Sodium 133 mmol/L (135-145) L 12/21/24 04:25
Potassium 3.5 mmol/L (3.5-5.1) 12/21/24 04:25
Chloride 97 mmol/L (98-107) L 12/21/24 04:25
Carbon Dioxide 24 mmol/L (22-30) 12/21/24 04:25
BUN 73 mg/dl (9-20) H 12/21/24 04:25
Creatinine 4.7 mg/dL (0.7-1.3) H* 12/21/24 04:25
eGFR 12.49 12/21/24 04:25
Glucose 108 mg/dl (70-99) H 12/21/24 04:25
Calcium 8.8 mg/dl (8.4-10.2) 12/21/24 04:25
Phosphorus 3.9 mg/dl (2.5-4.5) 12/18/24 06:08
Ghv-C-Yjebcwofrgw Pept 4660 pg/ml 12/16/24 17:57
Albumin 3.0 g/dl (3.5-5.0) L 12/21/24 04:25
Physical Exam
-
Vital Signs:
Vital Signs
Temp Pulse Resp BP Pulse Ox
98.3 F 61 20 133/74 94
12/21/24 12:16 12/21/24 12:16 12/21/24 12:16 12/21/24 12:16 12/21/24 12:16
Respiratory:: Bilateral: CTA
Lung Excursion:: Normal
Abdomen:: Soft
Bowel Sounds:: Normal
Extremity Edema:: None: Bilateral:
Latham Catheter: No
[2024-12-21] MEDS: NOVOLOG FLEXPEN SC (13:46)
[2024-12-21] MEDS: NOVOLOG FLEXPEN-MODERATE RESISTANCE 3 UNITS SC (13:52)
--- NOTE | 2024-12-21 14:23 | PTCARENOTE ---
12/21/24 Received patient from previous shift in bed resting comfortably. No complaints of chest pain,palpitations or shortness of breath. NSS infusing at 125 ml/hr. Pt on marketing research analyst NSR w/PVC's. VSS, Afebrile. Pt out of bed in chair, walking
around room. Nephrology/Cardiology/Attending all to see patient. IVF's discontinued by Renal. All questions were answered, support given.
[2024-12-21 15:48] VITALS: BP 132/72
[2024-12-21 17:42] LABS: Glucose - Point of Care 164 mg/dl (70-99)
[2024-12-21] MEDS: NOVOLOG FLEXPEN-MODERATE RESISTANCE 1 UNITS SC (18:29)
[2024-12-21] MEDS: VIBRAMYCIN 100 MG PO (19:27)
[2024-12-21 19:31] VITALS: BP 131/81
[2024-12-21 21:51] LABS: Glucose - Point of Care 163 mg/dl (70-99)
[2024-12-21 22:17] VITALS: BP 139/69
[2024-12-21] MEDS: LIPITOR 40 MG PO (22:18)
[2024-12-21] MEDS: LANTUS 0.1 UNITS SC (22:18)
--- NOTE | 2024-12-21 23:11 | PTCARENOTE ---
received patient at the change of shift. AAOx3. states feeling well and had a good day. SB/SR on tele with PVCs- 50s-70s. bp stable. LE edema noted. + pulses. patient complaining of L cheek/sinus pain and L hand pain at times-Tylenol given with
improvement, see mar. urinating yellow urine in the BSU. BM x2 today per patient. reviewed plan of care with patient and verbalized understanding. call mckinney within reach. makes needs known.
[2024-12-22] VITALS (12 sets, daily range): BP systolic 114–166; BP diastolic 59–96; PULSE 60; O2SAT 95; BMI 37.7
[2024-12-22 05:09] LABS: Hematocrit 25.4 % (39.0-52.0); Hemoglobin 8.7 g/dL (13.0-18.0); Mean Corp Hgb Conc. 34.3 g/dL (33.0-37.0); Mean Corpuscular Hgb 28.2 pg (27.0-31.0); Mean Corpuscular Volume 82.2 fL (80.0-94.0); Mean Platelet Volume 10.7 fL (7.4-10.4); Platelet Count 262 10^3/uL (130-400); Red Blood Cell Count 3.09 10^6/uL (4.70-6.10); Red Cell Dist. Width 13.5 % (11.5-14.5)
[2024-12-22 05:39] LABS: Blood Urea Nitrogen 69 mg/dl (9-20); Calcium 9.7 mg/dl (8.4-10.2); Carbon Dioxide 26 mmol/L (22-30); Chloride 102 mmol/L (98-107); Estimated Creatinine Clearance 30 ml/min; Glucose 111 mg/dl (70-99); Sodium 139 mmol/L (135-145); eGFR 25.41
[2024-12-22 08:59] LABS: Glucose - Point of Care 167 mg/dl (70-99)
[2024-12-22] MEDS: TYLENOL 650 MG PO ×2 (09:00→20:06)
[2024-12-22] MEDS: PROSCAR 5 MG PO (09:00)
[2024-12-22] MEDS: DITROPAN 5 MG PO ×2 (09:00→20:06)
[2024-12-22] MEDS: TRICOR 48 MG PO (09:00)
[2024-12-22] MEDS: VIBRAMYCIN 100 MG PO ×2 (09:00→20:06)
[2024-12-22] MEDS: ASPIR LOW (ENTERIC COATED) 81 MG PO (09:00)
[2024-12-22] MEDS: TOPROL XL 100 MG PO (09:00)
[2024-12-22] MEDS: FLOMAX 0.4 MG PO (09:00)
[2024-12-22] MEDS: NOVOLOG FLEXPEN-MODERATE RESISTANCE 1 UNITS SC (09:01)
[2024-12-22] MEDS: NOVOLOG FLEXPEN 3 UNITS SC ×3 (09:01→18:22)
[2024-12-22] MEDS: COLCHICINE 0.3 MG PO (09:01)
[2024-12-22] MEDS: PLAVIX 75 MG PO (09:04)
[2024-12-22] MEDS: STERILE WATER FOR INJECTION IV (09:42)
--- NOTE | 2024-12-22 10:02 | W.PN.CD ---
Today's Communication / Plan
-
- Continue fluids
- Hold ACEI. OK to have borderline elevated BP given TONY.
Impression / Plan
-
Impression/Plan: 74M with CAD (prior CABG), HTN, HLD and NIDDM admitted with NSTEMI and new HFmEF (LVEF 45-50%), now with acute kidney injury.
#Hypoxic respiratory failure
-Acute, improving.
-SARS-CoV-2 negative, influenza negative.
-CXR shows pulmonary edema, but also an opacity in the suprahilar right upper lobe. CT chest as there is concern for potential malignancy.
#HFmEF
-Acute, threat to life, improving but requires intensive monitoring.
-LVEF 40-50%.
-There is a question of adherence at home.
-Daily weights.
-Goal K > 4, Mg > 2, Ca > 8 and PO4 > 2.5.
-GDMT as hemodynamics will tolerate. SGLT2i and ARNi are cost prohibitive.
-Continue metoprolol.
-Hold diuretics.
#NSTEMI/CAD
-Acute, threat to life.
-History of CAD s/p CABG (he reports 5 jumps, unknown anatomy, but they did use a left radial graft).
-Chest pain-free.
-Troponin peaked at 16.4.
-Complex coronary anatomy - essentially living off of the ALATORRE/LAD which backfills the [place] D3, the y-graft SVG to D3, the LRA to OM and thus the RPDA via collaterals. There is a 70% LAD lesion distal to D3 but proximal to the ALATORRE anastomosis.
-I discussed the situation with his outpatient blockman (Dr. Shannon) and the patient. Overall, this is VERY high risk anatomy for any intervention ([place] LAD into the D3 vs. retrograde intervention via ALATORRE graft).
-We will focus on medical management of NSTEMI (DAPT, OMT/GDMT, secondary prevention) and treatment of his hypoxic respiratory failure.
-on aspirin 81 mg daily (in addition to home clopidogrel).
#TONY
-Acute.
-Has started to come down today
-Creatinine 1.0 --> 2.1 --> 4.0 -->4.7 -->2.6
-DDx includes functional hypovolemia, contrast nephropathy, medication related (ACEI, furosemide) or AIN.
-renal US. 12/20/2024: Unremarkable sonographic appearance of kidneys. No hydronephrosis.
-Hold diuretics, ACEI. Giving fluids.
-Nephrology involved.
#Hypertension
-Chronic, multidrug, stable.
-Continue to hold amlodipine.
-Hold ACEI/spironolactone in light of TONY.
#Anemia
-Unknown duration.
-Normal MCV.
-Ferritin > 100, normal B12/folate, thiamine pending.
-Heme occult pending.
#HLD
-Chronic, stable.
-Total cholesterol = 162, LDL = 81, HDL = 47, Triglycerides = 170.
-LDL above goal on atorvastatin, possible nonadherence.
-Goal LDL < 55, Triglycerides < 150.
#NIDDM
-Chronic, stable.
-HgbA1c 6.5%.
-Management per primary service.
-Patient will continue to benefit from GLP-1 analog.
#Obesity
-Chronic.
-Semaglutide as noted.
Outpatient blockman: Dr. Shannon
Subjective/Interval History:
Patient now agreeable to SGLT2i/ARNi per nursing notes. no active complaints.
DATA:
Echocardiogram, 12/17/2024:
CONCLUSIONS
Mildly reduced left ventricular systolic function. LV ejection fraction is 45-
50% by visual estimate.
Hypokinesis of the basal to mid septal, inferior and mid to distal
inferolateral wall.
Stage II diastolic dysfunction suggestive of abnormal relaxation and increased
filling pressures.
Mild pulmonary hypertension.
No prior study available for comparison.
CXR, 12/17/2024:
IMPRESSION:
1. MILD ACUTE INTERSTITIAL and ALVEOLAR CARDIOGENIC PULMONARY EDEMA.
2. Mild cardiomegaly.
3. Previous CABG surgery.
4. 3.8 cm asymmetric opacity in the suprahilar right upper lobe. Diagnostic possibilities are (1) right upper lobe lung cancer, (2) asymmetric pulmonary edema, or (3) infectious or inflammatory pneumonitis.
Cardiac Catheterization, 12/18/2024:
CONCLUSIONS
1. Right dominant circulation with severe, multivessel disease, status post CABG (ALATORRE to LAD, LRA to OM, SVG Y graft off of LRA to D1, SVG to RPDA, SVG to unknown) with a patent ALATORRE graft and chronic total occlusion of all the aortic grafts at
their origin, but patent LRA and SVG Y graft with complicated flow pattern detailed below. The LAD is chronically diffusely diseased in its proximal midportion, ultimately chronically totally occluded after the small second diagonal, the circumflex
is chronically totally occluded in its proximal margin and the RCA is occluded at its midportion. There is an additional 70% lesion in the distal LAD, distal to the origin of D3 but proximal to the anastomosis of the ALATORRE graft.
2. The SVG to the RCA and the SVG to unknown artery are chronically totally occluded. The left radial artery is chronically totally occluded at its origin but patent in its proximal margin, including the Y graft origin to the first diagonal. The
patient's coronary blood flow is complicated and proceeds as follows: The ALATORRE graft supplies the LAD which backfills the third diagonal (through a 70% LAD stenosis). The SVG to the third diagonal is subsequently filled retrograde back to the level
of the chronic total occlusion of the left radial artery graft anastomosis. The left radial artery graft is subsequently filled from flow from the diagonal and supplies the obtuse marginal. The RPDA is supplied by collaterals from the left
circulation.
3. Moderately elevated filling pressures (LVEDP = 21 mmHg at 105.7 kg).
Physical Exam
Vital Signs/Labs
Vital Signs
Temp Pulse Resp BP Pulse Ox
98.3 F 71 20 147/96 93
12/22/24 07:41 12/22/24 07:41 12/22/24 07:41 12/22/24 07:41 12/22/24 07:41
12/21/24 12/22/24 12/23/24
06:59 06:59 06:59
Actual Weight 110.2 kg 109 kg
12/22/24 04:49
12/22/24 04:49
APTT Cancelled 12/18/24 12:40
Magnesium 2.4 mg/dl (1.6-2.3) H 12/20/24 04:27
Triglycerides 170 mg/dl (10-149) H 12/17/24 05:15
LDL Cholesterol, Calc 81 mg/dl 12/17/24 05:15
VLDL Cholesterol, Calc 34 mg/dl (0-30) H 12/17/24 05:15
HDL Cholesterol 47 mg/dl 12/17/24 05:15
12/16/24
17:57
Iwe-J-Igfhmilusct Pept 4660
Physical Exam
Constitutional: No acute distress and Comfortable
EENT: Anicteric and Moist mucous membranes
Cardiovascular: Rhythm & rate is regular, Pedal edema is absent and JVD pressure is normal
Respiratory: Respiratory effort normal and Crackles Absent
GI: Soft, Non tender and Normal bowel sounds
Neuro/Psych: Alert, Oriented and AO x 3
Data Reviewed
-
Date of Service: December 22, 2024
Medical Decision Making: Reviewed Test Results
EKG: Tracing Personally Visualized and interpreted
Echo: Tracing Personally Visualized and interpreted
Labs: Labs Reviewed by me
Old Records: Reviewed
--- NOTE | 2024-12-22 11:05 | W.PN.HOSP.TC ---
Today's Communication/Plan
-
Improving creatinine. Follow BMP.
Assessment / Plan
Assessment / Plan
Assessment:
74-year-old male with a past medical history of CAD status post CABG 13 years ago, lni-zltgnuy-vyonwkycj diabetes, hypertension presented to the [facility] emergency department on 12/16/2024 due to recent increased shortness of breath.
Patient has been having worsening cough for about a week and reported having a fever a day ago. Yesterday patient had gone to his primary care doctor for evaluation of his recent upper respiratory symptoms and was started on antibiotics. When he
got home patient's daughter noticed that he was very short of breath and took him to the emergency department. In the emergency department he had fever with a temperature of 99.3, markedly hypoxic and was started on oxygen supplementation with 10 L
of oxygen. Patient's ECG showed sinus tachycardia with PVCs, ST changes inferolaterally. However patient's troponin levels continued to increase. Chest x-ray done in the ED showed marked pulmonary edema. Cardiology was consulted and patient was
started on IV Lasix. Patient was admitted to the IMU for further management as he required increased supplemental oxygen. Patient underwent echocardiogram which showed mild reduction in systolic function. Patient underwent successful cardiac
catheterization yesterday which showed severe coronary artery disease which was recommended to only be treated via medical approach. Recommendation was to continue diuresis. Patient's oxygen levels were improving and he was eventually weaned off
to room air. On CT sinuses, near complete opacification of the left maxillary sinus was noted, ENT was consulted. Determined that no surgical intervention was necessary at this time. Patient developed worsening kidney function post cardiac
catheterization, likely due to contrast. Nephrology was consulted, patient continued to not produce as much urine. Kidney function continue to worsen.
Plan:
# Acute hypoxic respiratory failure secondary to heart failure with mildly reduced ejection fraction
-Chest x-ray showed interstitial edema, recent weight gain and peripheral edema along with noncompliance with his Lasix 40mg daily
-BNP elevated at 4887
-Echo as above
-Cardiology consulted, input appreciated
- Lasix held due to worsening kidney function
- Daily weights and I/O's
- Holding lisinopril due to kidney function
-Continue metoprolol XL 100 mg
- Holding pioglitazone due to kidney function
-Now on room air, breathing much improved
# ?RUL pneumonia due to recent upper respiratory symptoms
-Had a low-grade temperature in the ED, also reported fever yesterday
-Afebrile since admission
-Blood cultures negative
-COVID-negative, flu negative
-No leukocytosis, less likely pneumonia. Repeat two-view x-ray shows rapid resolution of right upper lobe opacity suggesting more of fluid. Discontinued antibiotics for pneumonia.
-Procalcitonin 0.72 (elevated) may be secondary to left maxillary sinusitis
-Cough suppression and nebs as needed
-Continue doxycycline but DC ceftriaxone
# TONY likely secondary to contrast versus diuresis/medication
- Nephrology consulted, input appreciated
- Creatinine dropped to 2.6 today
- FeNA shows most likely pre-renal etiology
- Renal U/S ordered, not showing any abnormalities
- Monitor strict I/Os-not producing much urine
- Continue bladder scan
- Straight cath as needed
- Holding nephrotoxic drugs
-Patient received IV fluids for 24 hours for TONY, was discontinued yesterday.
# Elevated troponins possibly secondary to coronary artery disease
-Peaked
-Patient on Plavix, given dose of aspirin 325
-Heparin drip discontinued
-No chest pain
-LDL cholesterol 81, triglycerides a bit elevated at 170
-Cardiology consulted, input appreciated
-Cardiac cath showed severe coronary disease that they could not intervene with surgically
-Plan is to continue management medically
-Will continue metoprolol and nitroglycerin paste as per cardiology
-Holding lisinopril due to worsening kidney function
-Discontinued amlodipine
# Left maxillary sinusitis
-Appreciate ENT input. Recommend antibiotic regimen and follow as an outpatient. Improved left maxillary pain.
-Contacted [facility] for loss of left upper tooth, was recommended to follow-up with outpatient setting
-Patient was given information and will follow-up with him in outpatient setting
-Continue doxycycline
# Hyperuricemia with possible acute gout flare causing pain in extremities
- Uric acid level is elevated
- Started on colchicine yesterday 0.6 mg
- Dose reduced today to 0.3 mg due to worsening kidney function
-Improving pain in the joints
# Gtp-lwaghrh-jqvngkslt diabetes type 2
-Continue holding glimepiride/oral hypoglycemic agents
-Started on aspart 3 units, glargine 10 units
-Moderate Sliding scale insulin, Accu-Cheks
-HbA1c 6.5%
-No hypoglycemia is noted.
# Normocytic anemia heme-negative.
H&H low but stable.
Iron studies suggest either anemia of chronic disease or functional iron deficiency. Will try and obtain old baseline hemoglobin
Full code
DVT prophylaxis: SCDs
Anticipated Discharge: > 48 hours
Subjective/Interval History
-
Date of Service: December 22, 2024
Feeling improved.
Denies shortness of breath. Remains off of oxygen.
Improved joint pain.
Improved left maxillary sinus pain.
No nausea vomiting.
Tolerating diet.
Objective Data
-
Labs:
Laboratory Results
12/22/24
04:49
WBC 6.0
Hgb 8.7 L
Hct 25.4 L
Plt Count 262 D
Sodium 139
Potassium 4.0
Chloride 102
Carbon Dioxide 26
BUN 69 H
Creatinine 2.6 H
Glucose 111 H
Calcium 9.7
Vital Signs:
Vital Signs
Temp Pulse Resp BP Pulse Ox
98.3 F 71 20 147/96 93
12/22/24 07:41 12/22/24 07:41 12/22/24 07:41 12/22/24 07:41 12/22/24 07:41
I&O
12/21/24 12/22/24 12/23/24
06:59 06:59 06:59
Intake Total 1950 / 1950 400 / 400
Output Total 850 / 850 3325 / 3325 600 / 600
Balance 1100 / 1100 -2925 / -2925 -600 / -600
Physical Exam
-
General: Comfortable
Respiratory: Clear to Auscultation and Non Labored Respirations; Negative Accessory Resp Muscle Use
Cardiac: Regular Rhythm and S1/S2
GI: Soft
Musculoskeletal: Other (Improved left index and middle finger metacarpophalangeal joint swelling and mobility)
Neuro: AO x 3
Psych: Calm; Negative Confused
Data Reviewed
-
Labs: Labs Reviewed by me
--- NOTE | 2024-12-22 11:52 | W.PN.NEPH.PH ---
Today's Communication / Plan
-
Continue to hold diuretics
Assessment/Plan
-
Impression:
Acute kidney injury
Congestive heart failure decompensated (EF 45-50%)
Non-ST elevation [place]
History of hypertension
Diabetes
Coronary artery disease prior history of CABG/status postcardiac catheterization on 12/18/2024 (LVEDP 18- no PCI)
BPH
Plan:
TONY:
-weights down with diuresis
-Holding EUNICE
-Possible contrast-induced renal failure following cardiac catheterization on 12/18/2024
-Patient has remained hemodynamically stable
No obstructive pathology on imaging.
Making very little urine.
Urinalysis 3-6 red blood cells 1+ albumin many bacteria but no white blood cells
Creatinine peaked at 4.7 yesterday down to 2.4 today. Is likely all ELIAS induced.
Continue to hold diuretics but will certainly need to restart them in the next few days.
-
-
Date of Service: December 22, 2024
CC / HPI / ROS
-
Chief Complaint:
Acute kidney injury
History of Present Illness:
Acute kidney injury status post cardiac catheterization with significant disease medical management
Creatinine normal on admission increased up to 4 with oligoanuria
Review of Systems:.
No chest pain or shortness of breath
Labs
-
Labs:
WBC 6.0 10^3/uL (4.8-10.8) 12/22/24 04:49
RBC 3.09 10^6/uL (4.70-6.10) L 12/22/24 04:49
Hgb 8.7 g/dL (13.0-18.0) L 12/22/24 04:49
Hct 25.4 % (39.0-52.0) L 12/22/24 04:49
Plt Count 262 10^3/uL (130-400) D 12/22/24 04:49
Sodium 139 mmol/L (135-145) 12/22/24 04:49
Potassium 4.0 mmol/L (3.5-5.1) 12/22/24 04:49
Chloride 102 mmol/L (98-107) 12/22/24 04:49
Carbon Dioxide 26 mmol/L (22-30) 12/22/24 04:49
BUN 69 mg/dl (9-20) H 12/22/24 04:49
Creatinine 2.6 mg/dL (0.7-1.3) H 12/22/24 04:49
eGFR 25.41 12/22/24 04:49
Glucose 111 mg/dl (70-99) H 12/22/24 04:49
Calcium 9.7 mg/dl (8.4-10.2) 12/22/24 04:49
Phosphorus 3.9 mg/dl (2.5-4.5) 12/18/24 06:08
Gbq-G-Ncbbvcyevcy Pept 4660 pg/ml 12/16/24 17:57
Albumin 3.0 g/dl (3.5-5.0) L 12/21/24 04:25
Physical Exam
-
Vital Signs:
Vital Signs
Temp Pulse Resp BP Pulse Ox
98.3 F 71 20 147/96 93
12/22/24 07:41 12/22/24 07:41 12/22/24 07:41 12/22/24 07:41 12/22/24 07:41
Respiratory:: Bilateral: CTA
Lung Excursion:: Normal
Abdomen:: Soft
Bowel Sounds:: Normal
Extremity Edema:: +1: Bilateral:
[place] Catheter: No
[2024-12-22 12:28] LABS: Glucose - Point of Care 284 mg/dl (70-99)
[2024-12-22] MEDS: NOVOLOG FLEXPEN-MODERATE RESISTANCE 5 UNITS SC (13:01)
--- NOTE | 2024-12-22 16:59 | PTCARENOTE ---
12/22/24 Received patient from previous shift in bed resting comfortably. Pt on air sampling and monitoring Sinus Tony/NSR. Pt afebrile, SBP 130-140's. Pt on room air @ 96%. Pt with productive cough occasionally. Pt denies any shortness of breath, chest pain or
palpitations. Pt urine output has increased and his Creat level has come down to 2.6. Pt was OOb chair today. Labs in AM.
[2024-12-22] MEDS: ROBITUSSIN 100 MG PO (17:04)
[2024-12-22 17:15] LABS: Glucose - Point of Care 129 mg/dl (70-99)
[2024-12-22] MEDS: NOVOLOG FLEXPEN-MODERATE RESISTANCE SC (17:35)
--- NOTE | 2024-12-22 21:07 | PTCARENOTE ---
Patient received at change of shift resting in the bed. Sinus erickson/Sinus rhythm on telemetry. Oxygen saturation 96% on room air. Patient's only complaint is mild left hand and jaw pain, PRN acetaminophen given. Right groin site ADVERTISING OPERATIONS COORDINATOR, intact.
Positive pedal pulses. Denies chest pain. Denies feeling lightheaded or dizzy. Plan of care discussed with patient. Call mckinney within reach. Care ongoing.
[2024-12-22 22:03] LABS: Glucose - Point of Care 218 mg/dl (70-99)
[2024-12-22] MEDS: LANTUS 0.1 UNITS SC (22:05)
[2024-12-22] MEDS: LIPITOR 40 MG PO (22:05)
[2024-12-23] VITALS (8 sets, daily range): BP systolic 126–154; BP diastolic 62–111; BMI 37.3
[2024-12-23 04:03] LABS: Hematocrit 25.1 % (39.0-52.0); Hemoglobin 8.5 g/dL (13.0-18.0); Mean Corp Hgb Conc. 33.9 g/dL (33.0-37.0); Mean Corpuscular Hgb 28.4 pg (27.0-31.0); Mean Corpuscular Volume 83.9 fL (80.0-94.0); Platelet Count 283 10^3/uL (130-400); Red Blood Cell Count 2.99 10^6/uL (4.70-6.10); Red Cell Dist. Width 13.4 % (11.5-14.5); White Blood Cell Count 5.3 10^3/uL (4.8-10.8)
[2024-12-23 04:27] LABS: Blood Urea Nitrogen 50 mg/dl (9-20); Calcium 10.1 mg/dl (8.4-10.2); Carbon Dioxide 29 mmol/L (22-30); Chloride 105 mmol/L (98-107); Estimated Creatinine Clearance 43 ml/min; Glucose 140 mg/dl (70-99); Sodium 141 mmol/L (135-145)
[2024-12-23] MEDS: TOPROL XL 100 MG PO (08:38)
[2024-12-23] MEDS: COLCHICINE 0.3 MG PO (08:38)
[2024-12-23] MEDS: PLAVIX 75 MG PO (08:39)
[2024-12-23] MEDS: TRICOR 48 MG PO (08:39)
[2024-12-23] MEDS: PROSCAR 5 MG PO (08:39)
[2024-12-23] MEDS: VIBRAMYCIN 100 MG PO ×2 (08:39→20:21)
[2024-12-23] MEDS: DITROPAN 5 MG PO ×2 (08:39→20:21)
[2024-12-23] MEDS: ASPIR LOW (ENTERIC COATED) 81 MG PO (08:39)
[2024-12-23] MEDS: FLOMAX 0.4 MG PO (08:39)
[2024-12-23] MEDS: NOVOLOG FLEXPEN 3 UNITS SC ×3 (08:48→17:25)
[2024-12-23] MEDS: NOVOLOG FLEXPEN-MODERATE RESISTANCE 1 UNITS SC ×2 (08:48→17:24)
[2024-12-23 08:53] LABS: Glucose - Point of Care 194 mg/dl (70-99)
--- NOTE | 2024-12-23 09:58 | W.PN.NEPH.PH ---
Today's Communication / Plan
-
follow BMP
Assessment/Plan
-
Impression:
Acute kidney injury
Congestive heart failure decompensated (EF 45-50%)
Non-ST elevation [place]
History of hypertension
Diabetes
Coronary artery disease prior history of CABG/status postcardiac catheterization on 12/18/2024 (LVEDP 18- no PCI)
BPH
Plan:
follow BMP
holding RASi
ok to restart lasix if desired. patient says that edema is slightly better usual currently
-
-
Date of Service: December 23, 2024
CC / HPI / ROS
-
Chief Complaint:
Acute kidney injury
History of Present Illness:
Acute kidney injury status post cardiac catheterization with significant disease medical management
TONY/Cr down to 1.8
BP stable
Review of Systems:.
No chest pain or shortness of breath
Labs
-
Labs:
WBC 5.3 10^3/uL (4.8-10.8) 12/23/24 03:41
RBC 2.99 10^6/uL (4.70-6.10) L 12/23/24 03:41
Hgb 8.5 g/dL (13.0-18.0) L 12/23/24 03:41
Hct 25.1 % (39.0-52.0) L 12/23/24 03:41
Plt Count 283 10^3/uL (130-400) 12/23/24 03:41
Sodium 141 mmol/L (135-145) 12/23/24 03:41
Potassium 4.0 mmol/L (3.5-5.1) 12/23/24 03:41
Chloride 105 mmol/L (98-107) 12/23/24 03:41
Carbon Dioxide 29 mmol/L (22-30) 12/23/24 03:41
BUN 50 mg/dl (9-20) H 12/23/24 03:41
Creatinine 1.8 mg/dL (0.7-1.3) H 12/23/24 03:41
eGFR 39.50 12/23/24 03:41
Glucose 140 mg/dl (70-99) H 12/23/24 03:41
Calcium 10.1 mg/dl (8.4-10.2) 12/23/24 03:41
Phosphorus 3.9 mg/dl (2.5-4.5) 12/18/24 06:08
Pbi-X-Sgzuknucjmo Pept 4660 pg/ml 12/16/24 17:57
Albumin 3.0 g/dl (3.5-5.0) L 12/21/24 04:25
Physical Exam
-
Vital Signs:
Vital Signs
Temp Pulse Resp BP Pulse Ox
98.6 F 68 20 154/83 95
12/23/24 06:56 12/23/24 06:56 12/23/24 06:56 12/23/24 06:56 12/23/24 06:56
Cardiovascular:: Regular rate and rhythm
Respiratory:: Bilateral: Coarse
Lung Excursion:: Normal
Abdomen:: Nontender and Soft
Bowel Sounds:: Normal
Extremity Edema:: +2: Bilateral:
--- NOTE | 2024-12-23 10:19 | W.PN.CD ---
Today's Communication / Plan
-
Continue to monitor electrolytes in the setting of post ATN diuresis.
Medical management of NSTEMI.
Discharge planning of renal function continues to improve (~48 hours).
Impression / Plan
-
Impression/Plan: 74M with CAD (prior CABG), HTN, HLD and NIDDM admitted with NSTEMI and new HFmEF (LVEF 45-50%), now with acute kidney injury.
#Hypoxic respiratory failure
-Resolved.
#HFmEF
-Acute, threat to life, improving but requires intensive monitoring.
-LVEF 40-50%.
-There is a question of adherence at home.
-Daily weights.
-Goal K > 4, Mg > 2, Ca > 8 and PO4 > 2.5.
-GDMT as hemodynamics will tolerate. SGLT2i and ARNi are cost prohibitive.
-Continue metoprolol.
-> 2.5 L of UOP in the absence of diuretics with concordant drop in weight. This could be post ATN diuresis.
#NSTEMI/CAD
-Acute, threat to life.
-History of CAD s/p CABG (he reports 5 jumps, unknown anatomy, but they did use a left radial graft).
-Chest pain-free.
-Troponin peaked at 16.4.
-Complex coronary anatomy - essentially living off of the ALATORRE/LAD which backfills the [place] D3, the y-graft SVG to D3, the LRA to OM and thus the RPDA via collaterals. There is a 70% LAD lesion distal to D3 but proximal to the ALATORRE anastomosis.
-I discussed the situation with his outpatient superannuation clerk (Dr. Shannon) and the patient. Overall, this is VERY high risk anatomy for any intervention ([place] LAD into the D3 vs. retrograde intervention via ALATORRE graft).
-We will focus on medical management of NSTEMI (DAPT, OMT/GDMT, secondary prevention) and treatment of his hypoxic respiratory failure.
-Continue aspirin 81 mg daily (in addition to home clopidogrel).
#TONY
-Acute.
-Has started to come down today
-Creatinine 1.0 --> 2.1 --> 4.0 -->4.7 -->2.6
-DDx includes functional hypovolemia, contrast nephropathy, medication related (ACEI, furosemide) or AIN. I suspect this is ELIAS.
-Renal US from 12/20/2024: Unremarkable sonographic appearance of kidneys. No hydronephrosis.
-Hold diuretics, ACEI.
-Nephrology involved.
-Significant UOP without diuretics suggests post ATN diuresis.
-Monitor electrolytes and keep K > 4, Mg > 2, Ca > 8 and PO4 > 2.5.
#Hypertension
-Chronic, multidrug, stable.
-Continue to hold amlodipine.
-Hold ACEI/spironolactone in light of TONY.
#Anemia
-Unknown duration.
-Normal MCV.
-Ferritin > 100, normal B12/folate, thiamine pending.
-Heme occult pending.
#HLD
-Chronic, stable.
-Total cholesterol = 162, LDL = 81, HDL = 47, Triglycerides = 170.
-LDL above goal on atorvastatin, possible nonadherence.
-Goal LDL < 55, Triglycerides < 150.
#NIDDM
-Chronic, stable.
-HgbA1c 6.5%.
-Management per primary service.
-Patient will continue to benefit from GLP-1 analog.
#Obesity
-Chronic.
-Semaglutide as noted.
Outpatient superannuation clerk: Dr. Shannon
Subjective/Interval History:
Weight down 1.2 kg.
BP running 140-150's.
I/O shows 2625 mL of output in the absence of diuretics.
Creatinine down to 1.8.
DATA:
Echocardiogram, 12/17/2024:
CONCLUSIONS
Mildly reduced left ventricular systolic function. LV ejection fraction is 45-
50% by visual estimate.
Hypokinesis of the basal to mid septal, inferior and mid to distal
inferolateral wall.
Stage II diastolic dysfunction suggestive of abnormal relaxation and increased
filling pressures.
Mild pulmonary hypertension.
No prior study available for comparison.
CXR, 12/17/2024:
IMPRESSION:
1. MILD ACUTE INTERSTITIAL and ALVEOLAR CARDIOGENIC PULMONARY EDEMA.
2. Mild cardiomegaly.
3. Previous CABG surgery.
4. 3.8 cm asymmetric opacity in the suprahilar right upper lobe. Diagnostic possibilities are (1) right upper lobe lung cancer, (2) asymmetric pulmonary edema, or (3) infectious or inflammatory pneumonitis.
Cardiac Catheterization, 12/18/2024:
CONCLUSIONS
1. Right dominant circulation with severe, multivessel disease, status post CABG (ALATORRE to LAD, LRA to OM, SVG Y graft off of LRA to D1, SVG to RPDA, SVG to unknown) with a patent ALATORRE graft and chronic total occlusion of all the aortic grafts at
their origin, but patent LRA and SVG Y graft with complicated flow pattern detailed below. The LAD is chronically diffusely diseased in its proximal midportion, ultimately chronically totally occluded after the small second diagonal, the circumflex
is chronically totally occluded in its proximal margin and the RCA is occluded at its midportion. There is an additional 70% lesion in the distal LAD, distal to the origin of D3 but proximal to the anastomosis of the ALATORRE graft.
2. The SVG to the RCA and the SVG to unknown artery are chronically totally occluded. The left radial artery is chronically totally occluded at its origin but patent in its proximal margin, including the Y graft origin to the first diagonal. The
patient's coronary blood flow is complicated and proceeds as follows: The ALATORRE graft supplies the LAD which backfills the third diagonal (through a 70% LAD stenosis). The SVG to the third diagonal is subsequently filled retrograde back to the level
of the chronic total occlusion of the left radial artery graft anastomosis. The left radial artery graft is subsequently filled from flow from the diagonal and supplies the obtuse marginal. The RPDA is supplied by collaterals from the left
circulation.
3. Moderately elevated filling pressures (LVEDP = 21 mmHg at 105.7 kg).
Renal US, 12/20/2024:
IMPRESSION:
Unremarkable sonographic appearance of the kidneys; no hydronephrosis.
Unremarkable appearance of the bladder. Ureteral jets not observed.
Physical Exam
Vital Signs/Labs
Vital Signs
Temp Pulse Resp BP Pulse Ox
37.0 C 68 20 154/83 95
12/23/24 06:56 12/23/24 06:56 12/23/24 06:56 12/23/24 06:56 12/23/24 06:56
12/21/24 12/22/24 12/23/24
11:59 11:59 11:59
Actual Weight 110.2 kg 109 kg 107.8 kg
12/23/24 03:41
12/23/24 03:41
APTT Cancelled 12/18/24 12:40
Magnesium 2.4 mg/dl (1.6-2.3) H 12/20/24 04:27
Triglycerides 170 mg/dl (10-149) H 12/17/24 05:15
LDL Cholesterol, Calc 81 mg/dl 12/17/24 05:15
VLDL Cholesterol, Calc 34 mg/dl (0-30) H 12/17/24 05:15
HDL Cholesterol 47 mg/dl 12/17/24 05:15
12/16/24
17:57
Bnh-Z-Gcqthlsmwmg Pept 4660
Physical Exam
Constitutional: No acute distress and Comfortable
EENT: Anicteric and Moist mucous membranes
Cardiovascular: Rhythm & rate is regular, JVD pressure is normal, Pedal edema present (2+ LE edema to the mid-wen.), S1S2 is normal and Murmur/rub/gallop absent
Respiratory: Respiratory effort normal, Lungs clear to auscul., Wheeze Absent, Crackles Absent and Rhonchi Absent
GI: Soft, Distention absent, Flat, Non tender and Normal bowel sounds
Neuro/Psych: AO x 3
Data Reviewed
-
Date of Service: December 23, 2024
Medical Decision Making: Reviewed Test Results, Independent Historian Assessment and Test Interpretation
EKG: Tracing Personally Visualized and interpreted and Report Reviewed by me
Echo: Tracing Personally Visualized and interpreted and Report Reviewed by me
X-Ray/CT/US/MRI/NUC/PET: Image Personally Visualized and interpreted and Report Reviewed by me
Medical Tests (PFT, Pathology etc): Image Personally Visualized and interpreted and Report Reviewed by me
Labs: Labs Reviewed by me
Old Records: Reviewed
[2024-12-23 11:50] LABS: Glucose - Point of Care 283 mg/dl (70-99)
[2024-12-23] MEDS: NOVOLOG FLEXPEN-MODERATE RESISTANCE 5 UNITS SC (12:36)
[2024-12-23 17:25] LABS: Glucose - Point of Care 191 mg/dl (70-99)
--- NOTE | 2024-12-23 17:29 | PTCARENOTE ---
Offers no complaints today. VSS throughout day. Remains NSR/sinus erickson, HR 50-60s on telemetry. Maintains ability to ambulate independently, gait steady. Plan of care discussed.
[2024-12-23 17:33] LABS: Vitamin B1, Whole Blood 109 nmol/L (70-180)
--- NOTE | 2024-12-23 18:03 | W.PN.HOSP.TC ---
Addendum entered and electronically signed by Fely Mcclendon MD 12/23/24 18:36:
I saw and evaluated the patient independently. I reviewed the resident�s note and agree with findings and plan as documented by Dr. Holley.
GENERAL: well developed, well nourished, male in no apparent distress
HEENT: NC/AT
HEART: regular rate and rhythm, +S1, +S2
LUNGS : clear to auscultation bilaterally
ABDOM: soft, nontender, nondistended, + bowel sounds
EXT: no cyanosis, clubbing, or edema
NEUROLOGIC: grossly intact
Acute hypoxic respiratory failure secondary to HFrEF--Confirmed on chest x-ray imaging--Cardiology consulted and recommend monitor electrolytes, medical management of NSTEMI, discharge planning if renal function continues to improve within 48
hours--Nephrology recommends we can restart Lasix if desired--daily weights, I/Os--EF 40-50%--cont metoprolol--Hold diuretics TESS inhibitors
Coronary artery disease--apprec Cardiology consulted-Continue management medically outpatient cardiology--Continue metoprolol--Continue nitroglycerin
TONY due to contrast-induced nephropathy--apprec Nephrology holding RAAS inhibitors--creat improving--if better tomorrow--d/c--Hold all nephrotoxic drugs--Renal ultrasound does not show any abnormalities
Essential Hypertension---Blood pressure stable--Hold all TESS inhibitor/spironolactone because of acute kidney injury
Hyperlipidemia--Stable--Goal LDL less than 55, triglycerides less than 150
Obesity--Advised on diet and exercise--affects all aspects of care
Diabetes mellitus type 2--HbA1c 6.5--Hold oral hypoglycemic agents--Daily Accu-Cheks and sliding scale insulin
DVT proph
code status--FULL CODE
Original Note:
Today's Communication/Plan
-
Discussed discharge with case management in terms of finding living facility
Assessment / Plan
Assessment / Plan
Have to contact counseling case manager in [place] and find an assisted living facility
Acute hypoxic respiratory failure secondary to HFrEF:
-Confirmed on chest x-ray imaging
-Cardiology consulted and recommend monitor electrolytes, medical management of NSTEMI, discharge planning if renal function continues to improve within 48 hours
-Nephrology recommends we can restart Lasix if desired
-Daily weights and ins and outs
-Left ventricular ejection fraction 40 to 50%
-Keep potassium more than 4, magnesium more than 2 and phosphate more than 2.5
-Continue metoprolol
-Hold diuretics TESS inhibitors
Coronary artery disease:
Cardiology consulted
-Continue management medically outpatient cardiology
-Continue metoprolol
-Continue nitroglycerin
TONY due to contrast-induced nephropathy:
-Nephrology consulted and recommend holding RAAS inhibitors
-Trend BMP
-Creatinine is 1.8 and trending down from 2.6
-Hold all nephrotoxic drugs
-Renal ultrasound does not show any abnormalities
Hypertension:
-Blood pressure is 134 x 62 and stable
-Hold all TESS inhibitor/spironolactone because of acute kidney injury
Hyperlipidemia:
-Stable
-Goal LDL less than 55, triglycerides less than 150
Obesity:
-Advised on diet and exercise
Diabetes mellitus type 2:
-No symptoms of hypoglycemia
-HbA1c 6.5
-Stable
-Hold oral hypoglycemic agents
-Daily Accu-Cheks and sliding scale insulin
Anticipated Discharge: 24 - 48 hours
Subjective/Interval History
-
Date of Service: December 23, 2024
74-year-old who is full code with a past medical history of coronary artery disease status post CABG 13 years ago, hypertension, [id number] diabetes presented to [place] [place] emergency department due to increased shortness of breath,
worsening cough, fever for about a week he had gone to his primary care doctor for evaluation of similar symptoms and was started on antibiotics. Patient's daughter noticed he was very short of breath his oxygen saturations in 70s and took him to
the emergency department where he was placed on 10 L of oxygen, EKG showed inferolateral ST changes, chest x-ray showed pulmonary edema. He underwent successful cardiac catheterization which showed severe coronary artery disease, cardiology
recommends he be treated via medical approach. Later he developed worsening kidney function postcardiac catheterization likely due to contrast, nephrology was consulted and they can most likely due to contrast-induced nephropathy which is getting
better as his creatinine level is decreasing.
Objective Data
-
Vital Signs:
Vital Signs
Temp Pulse Resp BP Pulse Ox
98.8 F 60 20 134/62 94
12/23/24 15:01 12/23/24 15:00 12/23/24 15:01 12/23/24 15:00 12/23/24 15:01
I&O
12/22/24 12/23/24 12/24/24
06:59 06:59 06:59
Intake Total 400 / 400
Output Total 3325 / 3325 2525 / 2525 900 / 900
Balance -2925 / -2925 -2525 / -2525 -900 / -900
Review of Systems
-
History Source: Patient
Constitutional: Denies Fever, Night Sweats or Chills
Respiratory: Denies Cough
Cardiac: Denies Chest Pain, Palpitations, Syncope or Orthopnea
Abdomen/GI: Denies Abdominal Pain, Nausea, Vomiting or Diarrhea
Genitourinary: Reports Difficulty Voiding; Denies Dysuria or Flank Pain
Musculoskeletal: Denies Joint Pain or Joint Swelling
Skin: Reports Itching
Neuro: Reports No Symptoms
Physical Exam
-
Respiratory: Clear to Auscultation
Cardiac: Regular Rhythm and S1/S2
GI: Soft, Nontender, Nondistended and Normal Bowel Sounds
Musculoskeletal: No Clubbing, No Cyanosis and No Edema (1+ edema bilateral lower extremities)
Data Reviewed
-
Medical Tests (Nuc Med, Echo etc): Image personally visualized and interpreted, Report Reviewed by me and Discussed with Physician
Labs: Labs Reviewed by me and Discussed with Physician
[2024-12-23] MEDS: DUONEB 3 ML INH (20:35)
[2024-12-23 22:09] LABS: Glucose - Point of Care 142 mg/dl (70-99)
[2024-12-23] MEDS: LIPITOR 40 MG PO (22:09)
[2024-12-23] MEDS: LANTUS 0.1 UNITS SC (22:09)
[2024-12-23] MEDS: TYLENOL 650 MG PO (22:09)
--- NOTE | 2024-12-23 23:18 | PTCARENOTE ---
received patient at the change of shift. patient states he is feeling better and ready to go home. independent in the room and steady on his feet. SB/SR with PVCs on tele- 50s-70s. bp stable. denies cp/sob. complaining of L cheek/jaw pain- irritates
patient more at night. Tylenol given, see mar. expiratory wheeze noted posteriorly. + harsh/productive cough. patient requesting DuoNeb, states 'it helped a lot before.' updated RT-given, see mar. patient states improvement after. reviewed plan of
care and verbalized understanding. urinating yellow urine in the urinal. call mckinney within each. makes needs known.
[2024-12-24 03:34] VITALS: BP 136/82
[2024-12-24 04:17] LABS: Hematocrit 27.5 % (39.0-52.0); Hemoglobin 9.2 g/dL (13.0-18.0); Mean Corp Hgb Conc. 33.5 g/dL (33.0-37.0); Mean Corpuscular Hgb 28.3 pg (27.0-31.0); Mean Corpuscular Volume 84.6 fL (80.0-94.0); Mean Platelet Volume 10.5 fL (7.4-10.4); Platelet Count 309 10^3/uL (130-400); Red Blood Cell Count 3.25 10^6/uL (4.70-6.10); Red Cell Dist. Width 13.5 % (11.5-14.5); White Blood Cell Count 6.5 10^3/uL (4.8-10.8)
[2024-12-24 04:37] LABS: Blood Urea Nitrogen 37 mg/dl (9-20); Calcium 10.3 mg/dl (8.4-10.2); Carbon Dioxide 30 mmol/L (22-30); Chloride 103 mmol/L (98-107); Estimated Creatinine Clearance 56 ml/min; Glucose 135 mg/dl (70-99); Potassium 4.3 mmol/L (3.5-5.1); Sodium 141 mmol/L (135-145)
[2024-12-24 06:00] VITALS: BMI 36.7
[2024-12-24 06:51] VITALS: BP 153/67
[2024-12-24 08:27] LABS: Glucose - Point of Care 188 mg/dl (70-99)
--- NOTE | 2024-12-24 08:41 | W.PN.CD ---
Today's Communication / Plan
-
-Continue aspirin and clopidogrel.
-Continue atorvastatin, Imdur, Toprol-XL.
-Creatinine improving; continue to hold Lasix and TESS inhibitor.
-Continue to monitor as inpatient.
Impression / Plan
-
Impression/Plan: 74M with CAD (prior CABG), HTN, HLD and NIDDM admitted with NSTEMI and new HFmEF (LVEF 45-50%), now with acute kidney injury.
#Hypoxic respiratory failure
-Resolved.
#HFmEF
-Acute, threat to life, improving but requires intensive monitoring.
-LVEF 40-50%.
-There is a question of adherence at home.
-Daily weights.
-Goal K > 4, Mg > 2, Ca > 8 and PO4 > 2.5.
-GDMT as hemodynamics will tolerate. SGLT2i and ARNi are cost prohibitive.
-Continue metoprolol.
-> 2.5 L of UOP in the absence of diuretics with concordant drop in weight. This could be post ATN diuresis.
#NSTEMI/CAD
-Acute, threat to life.
-History of CAD s/p CABG (he reports 5 jumps, unknown anatomy, but they did use a left radial graft).
-Chest pain-free.
-Troponin peaked at 16.4.
-Complex coronary anatomy - essentially living off of the ALATORRE/LAD which backfills the solomon D3, the y-graft SVG to D3, the LRA to OM and thus the RPDA via collaterals. There is a 70% LAD lesion distal to D3 but proximal to the ALATORRE anastomosis.
-Overall, this is VERY high risk anatomy for any intervention (solomon LAD into the D3 vs. retrograde intervention via ALATORRE graft).
-Continue medical management of NSTEMI (DAPT, OMT/GDMT, secondary prevention) and treatment of his hypoxic respiratory failure.
-Continue aspirin and clopidogrel.
-Continue atorvastatin, Imdur, Toprol-XL.
#TONY
-Acute.
-Has started to come down today
-Creatinine 1.0 --> 2.1 --> 4.0 -->4.7 -->2.6-->1.8-->1.4
-DDx includes functional hypovolemia, contrast nephropathy, medication related (ACEI, furosemide) or AIN. I suspect this is ELIAS.
-Renal US from 12/20/2024: Unremarkable sonographic appearance of kidneys. No hydronephrosis.
-Creatinine improving; continue to hold Lasix and TESS inhibitor.
-Nephrology involved.
-Significant UOP without diuretics suggests post ATN diuresis.
-Monitor electrolytes and keep K > 4, Mg > 2, Ca > 8 and PO4 > 2.5.
#Hypertension
-Chronic, multidrug, stable.
-Continue to hold amlodipine.
-Holding ACEI/spironolactone in light of TONY.
- Fairly controlled.
#Anemia
-Unknown duration.
-Normal MCV.
-Ferritin > 100, normal B12/folate, thiamine pending.
-Heme occult pending.
#HLD
-Chronic, stable.
-Total cholesterol = 162, LDL = 81, HDL = 47, Triglycerides = 170.
-LDL above goal on atorvastatin, possible nonadherence.
-Goal LDL < 55, Triglycerides < 150.
#NIDDM
-Chronic, stable.
-HgbA1c 6.5%.
-Management per primary service.
-Patient will continue to benefit from GLP-1 analog.
#Obesity
-Chronic.
-Semaglutide as noted.
Outpatient shank paperer: Dr. Shannon
DATA:
Echocardiogram, 12/17/2024:
CONCLUSIONS
Mildly reduced left ventricular systolic function. LV ejection fraction is 45-
50% by visual estimate.
Hypokinesis of the basal to mid septal, inferior and mid to distal
inferolateral wall.
Stage II diastolic dysfunction suggestive of abnormal relaxation and increased
filling pressures.
Mild pulmonary hypertension.
No prior study available for comparison.
CXR, 12/17/2024:
IMPRESSION:
1. MILD ACUTE INTERSTITIAL and ALVEOLAR CARDIOGENIC PULMONARY EDEMA.
2. Mild cardiomegaly.
3. Previous CABG surgery.
4. 3.8 cm asymmetric opacity in the suprahilar right upper lobe. Diagnostic possibilities are (1) right upper lobe lung cancer, (2) asymmetric pulmonary edema, or (3) infectious or inflammatory pneumonitis.
Cardiac Catheterization, 12/18/2024:
CONCLUSIONS
1. Right dominant circulation with severe, multivessel disease, status post CABG (ALATORRE to LAD, LRA to OM, SVG Y graft off of LRA to D1, SVG to RPDA, SVG to unknown) with a patent ALATORRE graft and chronic total occlusion of all the aortic grafts at
their origin, but patent LRA and SVG Y graft with complicated flow pattern detailed below. The LAD is chronically diffusely diseased in its proximal midportion, ultimately chronically totally occluded after the small second diagonal, the circumflex
is chronically totally occluded in its proximal margin and the RCA is occluded at its midportion. There is an additional 70% lesion in the distal LAD, distal to the origin of D3 but proximal to the anastomosis of the ALATORRE graft.
2. The SVG to the RCA and the SVG to unknown artery are chronically totally occluded. The left radial artery is chronically totally occluded at its origin but patent in its proximal margin, including the Y graft origin to the first diagonal. The
patient's coronary blood flow is complicated and proceeds as follows: The ALATORRE graft supplies the LAD which backfills the third diagonal (through a 70% LAD stenosis). The SVG to the third diagonal is subsequently filled retrograde back to the level
of the chronic total occlusion of the left radial artery graft anastomosis. The left radial artery graft is subsequently filled from flow from the diagonal and supplies the obtuse marginal. The RPDA is supplied by collaterals from the left
circulation.
3. Moderately elevated filling pressures (LVEDP = 21 mmHg at 105.7 kg).
Renal US, 12/20/2024:
IMPRESSION:
Unremarkable sonographic appearance of the kidneys; no hydronephrosis.
Unremarkable appearance of the bladder. Ureteral jets not observed.
Physical Exam
Vital Signs/Labs
Vital Signs
Temp Pulse Resp BP Pulse Ox
97.5 F 58 20 153/67 98
12/24/24 06:51 12/24/24 06:51 12/24/24 06:51 12/24/24 06:51 12/24/24 06:51
12/23/24 12/24/24 12/25/24
06:59 06:59 06:59
Actual Weight 107.8 kg 106.3 kg
12/24/24 03:33
12/24/24 03:33
APTT Cancelled 12/18/24 12:40
Magnesium 2.4 mg/dl (1.6-2.3) H 12/20/24 04:27
Triglycerides 170 mg/dl (10-149) H 12/17/24 05:15
LDL Cholesterol, Calc 81 mg/dl 12/17/24 05:15
VLDL Cholesterol, Calc 34 mg/dl (0-30) H 12/17/24 05:15
HDL Cholesterol 47 mg/dl 12/17/24 05:15
12/16/24
17:57
Lof-A-Hpuznuuuaac Pept 4660
Physical Exam
Constitutional: No acute distress and Comfortable
EENT: Anicteric
Cardiovascular: Rhythm & rate is regular (Ectopy present), Pedal edema present (1-2+), Systolic murmur present (/) and S1S2 is normal
Respiratory: Respiratory effort normal and Crackles Absent (Mild bibasilar)
GI: Soft
Neuro/Psych: AO x 3
Other: Skin (Warm, dry, intact)
Data Reviewed
-
Date of Service: December 24, 2024
EKG: Tracing Personally Visualized and interpreted (Telemetry: Sinus rhythm/PVCs)
Echo: Report Reviewed by me (EF 45-50%)
Labs: Labs Reviewed by me
[2024-12-24] MEDS: FLOMAX 0.4 MG PO (08:45)
[2024-12-24] MEDS: VIBRAMYCIN 100 MG PO (08:45)
[2024-12-24] MEDS: COLCHICINE 0.3 MG PO (08:46)
[2024-12-24] MEDS: DITROPAN 5 MG PO (08:46)
[2024-12-24] MEDS: PLAVIX 75 MG PO (08:46)
[2024-12-24] MEDS: TOPROL XL 100 MG PO (08:46)
[2024-12-24] MEDS: PROSCAR 5 MG PO (08:46)
[2024-12-24] MEDS: TRICOR 48 MG PO (08:46)
[2024-12-24] MEDS: ASPIR LOW (ENTERIC COATED) 81 MG PO (08:46)
[2024-12-24] MEDS: FLUSH (NSS) 2 FLUSH IV (08:47)
[2024-12-24] MEDS: NOVOLOG FLEXPEN-MODERATE RESISTANCE 1 UNITS SC (08:48)
[2024-12-24] MEDS: NOVOLOG FLEXPEN 3 UNITS SC ×2 (08:49→12:09)
--- NOTE | 2024-12-24 08:57 | W.PN.NEPH.PH ---
Today's Communication / Plan
-
follow BMP
Assessment/Plan
-
Impression:
Acute kidney injury
Congestive heart failure decompensated (EF 45-50%)
Non-ST elevation PR
History of hypertension
Diabetes
Coronary artery disease prior history of CABG/status postcardiac catheterization on 12/18/2024 (LVEDP 18- no PCI)
BPH
Plan:
follow BMP
restart RASi first
ok to restart lasix if desired, however grossly nonoliguric
holding SGLT2i still
-
-
Date of Service: December 24, 2024
CC / HPI / ROS
-
Chief Complaint:
Acute kidney injury
History of Present Illness:
Acute kidney injury status post cardiac catheterization with significant disease medical management
TONY/Cr down to 1.4
BP stable
Review of Systems:.
No chest pain or shortness of breath
Labs
-
Labs:
WBC 6.5 10^3/uL (4.8-10.8) 12/24/24 03:33
RBC 3.25 10^6/uL (4.70-6.10) L 12/24/24 03:33
Hgb 9.2 g/dL (13.0-18.0) L 12/24/24 03:33
Hct 27.5 % (39.0-52.0) L 12/24/24 03:33
Plt Count 309 10^3/uL (130-400) 12/24/24 03:33
Sodium 141 mmol/L (135-145) 12/24/24 03:33
Potassium 4.3 mmol/L (3.5-5.1) 12/24/24 03:33
Chloride 103 mmol/L (98-107) 12/24/24 03:33
Carbon Dioxide 30 mmol/L (22-30) 12/24/24 03:33
BUN 37 mg/dl (9-20) H 12/24/24 03:33
Creatinine 1.4 mg/dL (0.7-1.3) H 12/24/24 03:33
eGFR 53.40 12/24/24 03:33
Glucose 135 mg/dl (70-99) H 12/24/24 03:33
Calcium 10.3 mg/dl (8.4-10.2) H 12/24/24 03:33
Phosphorus 3.9 mg/dl (2.5-4.5) 12/18/24 06:08
Ffv-E-Pwcgzztberh Pept 4660 pg/ml 12/16/24 17:57
Albumin 3.0 g/dl (3.5-5.0) L 12/21/24 04:25
Physical Exam
-
Vital Signs:
Vital Signs
Temp Pulse Resp BP Pulse Ox
97.5 F 58 20 153/67 98
12/24/24 06:51 12/24/24 06:51 12/24/24 06:51 12/24/24 06:51 12/24/24 06:51
Cardiovascular:: Regular rate and rhythm
Respiratory:: Bilateral: Coarse
Lung Excursion:: Normal
Abdomen:: Nontender and Soft
Bowel Sounds:: Normal
Extremity Edema:: None: Bilateral:
--- NOTE | 2024-12-24 10:22 | PTCARENOTE ---
Addendum entered by Loretta Pan RN 12/24/24 10:46:
Placed a hat in the toilet to heme stools.
Original Note:
The patient had a small BM this morning. When he wiped himself, there was a smear of light red discoloration on the toilet tissue. I re-wiped his rectum and no red discoloration was noted.
[2024-12-24 11:02] VITALS: BP 124/72
[2024-12-24 12:09] LABS: Glucose - Point of Care 259 mg/dl (70-99)
[2024-12-24] MEDS: NOVOLOG FLEXPEN-MODERATE RESISTANCE 5 UNITS SC (12:10)
[2024-12-24 15:15] VITALS: BP 147/92
--- NOTE | 2024-12-24 17:54 | W.PN.HOSP.TC ---
Addendum entered and electronically signed by Fely Mcclendon MD 12/24/24 18:11:
I saw and evaluated the patient independently. I reviewed the resident�s note and agree with findings and plan as documented by Dr. Holley.
GENERAL: well developed, well nourished, male in no apparent distress
HEENT: NC/AT -no O2
HEART: regular rate and rhythm, +S1, +S2
LUNGS : clear to auscultation bilaterally
ABDOM: soft, nontender, nondistended, + bowel sounds
EXT: no cyanosis, clubbing, or edema
NEUROLOGIC: grossly intact
Acute hypoxic respiratory failure secondary to HFrEF--Confirmed on chest x-ray imaging--apprec cards-- medical management of NSTEMI, discharge planning--Nephrology recommends we can restart Lasix if desired--daily weights, I/Os--EF 40-50%--cont
metoprolol--Hold diuretics TESS inhibitors
Coronary artery disease--apprec Cards--Continue management medically outpatient cardiology--Continue metoprolol--Continue nitroglycerin
TONY due to contrast-induced nephropathy--apprec Nephrology holding RAAS inhibitors--creat improving, down to 1.4---d/c--Hold all nephrotoxic drugs--Renal ultrasound does not show any abnormalities
Essential Hypertension---Blood pressure stable--Hold all TESS inhibitor/spironolactone because of acute kidney injury--restart at cards discretion
Hyperlipidemia--Stable--Goal LDL less than 55, triglycerides less than 150
Obesity--Advised on diet and exercise--affects all aspects of care
Diabetes mellitus type 2--HbA1c 6.5--Hold oral hypoglycemic agents--Daily Accu-Cheks and sliding scale insulin
DVT proph
code status--FULL CODE
Original Note:
Today's Communication/Plan
-
Patient is being discharged home today with home health
He needs to follow up outpatient with PCP and specialists
Assessment / Plan
Assessment / Plan
Patient is being discharged to home today with home health.
Acute hypoxic respiratory failure secondary to HFrEF:
-Confirmed on chest x-ray imaging
-Cardiology consulted and recommend monitor electrolytes, medical management of NSTEMI, discharge planning if renal function continues to improve within 48 hours
-Nephrology recommends we can restart Lasix if desired
-Daily weights and ins and outs
-Left ventricular ejection fraction 40 to 50%
-Keep potassium more than 4, magnesium more than 2 and phosphate more than 2.5
-Continue metoprolol
-Hold diuretics TESS inhibitors
- Ordered incentive spirometry to help lung function
Coronary artery disease:
Cardiology consulted
-Continue management medically outpatient cardiology
-Continue metoprolol, nitroglycerin, aspirin, atorvastatin, imdur
TONY due to contrast-induced nephropathy:
-Nephrology consulted and recommend holding RAAS inhibitors
-Trend BMP
-Creatinine is 1.8 and trending down from 2.6
-Hold all nephrotoxic drugs
-Renal ultrasound does not show any abnormalities
Hypertension:
-Blood pressure is 134 x 62 and stable
-Hold all TESS inhibitor/spironolactone because of acute kidney injury
Hyperlipidemia:
-Stable
-Goal LDL less than 55, triglycerides less than 150
Obesity:
-Advised on diet and exercise
Diabetes mellitus type 2:
-No symptoms of hypoglycemia
-HbA1c 6.5
-Stable
-Hold oral hypoglycemic agents
-Daily Accu-Cheks and sliding scale insulin
Injection site redness:
- Warm compresses
Anticipated Discharge: Today
Subjective/Interval History
-
Date of Service: December 24, 2024
74-year-old who is full code with a past medical history of coronary artery disease status post CABG 13 years ago, hypertension, zsw-zpvkojg-wnsyfqygx diabetes presented to [place] emergency department due to increased shortness of breath,
worsening cough, fever for about a week he had gone to his primary care doctor for evaluation of similar symptoms and was started on antibiotics. Patient's daughter noticed he was very short of breath his oxygen saturations in 70s and took him to
the emergency department where he was placed on 10 L of oxygen, EKG showed inferolateral ST changes, chest x-ray showed pulmonary edema. He underwent successful cardiac catheterization which showed severe coronary artery disease, cardiology
recommends he be treated via medical approach. Later he developed worsening kidney function postcardiac catheterization likely due to contrast, nephrology was consulted and they can most likely due to contrast-induced nephropathy which is getting
better as his creatinine level is decreasing.
Objective Data
-
Vital Signs:
Vital Signs
Temp Pulse Resp BP Pulse Ox
97.8 F 66 20 147/92 97
12/24/24 15:15 12/24/24 16:00 12/24/24 15:15 12/24/24 15:15 12/24/24 15:15
I&O
12/23/24 12/24/24 12/25/24
06:59 06:59 06:59
Output Total 2525 / 2525 2400 / 2400 250 / 250
Balance -2525 / -2525 -2400 / -2400 -250 / -250
Review of Systems
-
History Source: Patient
Constitutional: Denies Fever, Night Sweats or Chills
Respiratory: Denies Cough
Cardiac: Denies Chest Pain, Palpitations, Syncope or Orthopnea
Abdomen/GI: Denies Abdominal Pain, Nausea, Vomiting or Diarrhea
Genitourinary: Reports Difficulty Voiding; Denies Dysuria or Flank Pain
Musculoskeletal: Denies Joint Pain or Joint Swelling
Skin: Reports Itching
Neuro: Reports No Symptoms
Physical Exam
-
Respiratory: Clear to Auscultation
Cardiac: Regular Rhythm and S1/S2
GI: Soft, Nontender, Nondistended and Normal Bowel Sounds
Musculoskeletal: No Clubbing, No Cyanosis and No Edema (1+ edema bilateral lower extremities)
Data Reviewed
-
Labs: Labs Reviewed by me and Discussed with Physician
--- NOTE | 2024-12-25 06:35 | W.DCSUMMARY ---
Addendum entered and electronically signed by Fely Mcclendon MD 12/25/24 07:12:
Read, reviewed, and agree. See same day progress note for additional details. Time spent coordinating care, DC planning, review of DC plan of care with resident, transition of care, review of records in EMR, med rec, consults, notes, d/w
consultants, nursing, family, and CM = 35 minutes
Actual discharge date was 12/24/2024.
Original Note:
Discharge Summary
Discharge Data
Date of Admission: 12/16/24
Date of Discharge: 12/25/24
-
Pending Results: No
Hospital Course
Discharging Physician : Dr. Mcclendon
Disposition : Home with home care
Primary care physician : Dr. Abdifatah Parker
Principal Discharge diagnosis : Acute hypoxemic respiratory failure secondary to HFrEF
Chronic Discharge diagnosis : Coronary artery disease, acute kidney injury, hypertension, hyperlipidemia, obesity, diabetes mellitus type 2,
Hospital Course : 74-year-old male who is full code, presented to [place] emergency department due to increased shortness of breath, worsening cough, fever for about a week and patient's daughter noticed 1 day that he was very short of breath
when his oxygen saturation was in the 70s and took him to the emergency room where he was then placed on 10 L of oxygen, an EKG was performed and showed an inferolateral ST changes, chest x-ray showed acute cardiogenic pulmonary edema. Troponins
peaked at 16.4. Echocardiogram showed a left ventricular ejection fraction of 40 to 50%. His weight was 112 kg on admission and then during time of discharge decreased to 106. Cardiac catheterization was performed which showed severe coronary
artery disease but because he was not a successful candidate for surgery (very high risk candidate for surgery due to anatomy) cardiology recommended he be treated via medical approach. His medical regimen includes aspirin clopidogrel atorvastatin
Imdur Toprol Lasix and TESS inhibitor. He is hypoxic respiratory failure resolved towards end of his discharge and patient was on room air. Patient was recommended to visit cardiology outpatient for further care and evaluation.
He also had an acute kidney injury post catheterization where his creatinine shot up to 4.7. This was deemed to be due to contrast-induced nephropathy from the procedure. There was unremarkable sonographic appearance of the kidneys. All
nephrotoxic drugs were held. Nephrology was consulted and we provided fluids and supportive care along with electrolyte monitoring. On discharge creatinine was 1.8 and patient was not exhibiting any clinical symptoms of contrast-induced
nephropathy.
Left maxillary sinusitis: After patient had pain in the left maxillary sinus area CT of the sinuses was taken and showed opacification of the left maxilla sinus and loss of definition to the superior medial bony wall. ENT was consulted and
recommended antibiotic regime and follow-up as outpatient. Patient was placed on doxycycline and he was asked to continue doxycycline until he was seen by outpatient ENT Dr. His left maxillary pain improved throughout the course of his hospital
stay. Analgesics were given for pain.
Hypertension: Blood pressure throughout hospital course ranged from 111/1 76 to1 66/72 and was fairly well-controlled. Patient had no chest pain palpitations headache dizziness blurry vision. During his treatment of TONY all nephrotoxic drugs were
held which included lisinopril and Lasix. Recommended to recheck BMP in 1 week with PCP.
Hyperlipidemia was managed with fenofibrate and atorvastatin. Patient is stable on discharge. Patient's LDL levels were 81. Follow-up with PCP in 1 week for repeat labs.
Diabetes mellitus type 2 was treated with insulin aspart and insulin glargine. Patient's glucose levels on admission were 317 and upon discharge were 135. Diabetes mellitus was well-controlled throughout his hospital stay and patient was stable.
Recommend follow-up with PCP in 1 week with repeat of BMP levels and also adjustment of diabetic regimen. On discharge patient was recommended to take his home medication diabetic regime and stop glimepiride and pioglitazone due to effects on heart
and kidney.
Important imaging findings :
Chest x-ray on 12/16/2024
Interstitial pulmonary edema pattern and acute cardiogenic pulmonary edema
Previous CABG surgery
3.8 cm asymmetric opacity in the suprahilar right upper lobe
CT of the sinuses on 12/19/24
Opacification of the left maxillary sinus with loss of definition to the superior medial bony wall
Electrocardiogram on 12/16/2024
Sinus rhythm, T wave abnormalities consider inferolateral ischemia
Electrocardiogram on 12/17/[address] abnormality lateral subendocardial injury with premature supraventricular complex
Catheterization lab report 12/18/24
1. Right dominant circulation with severe, multivessel disease, status post CABG (ALATORRE to LAD, LRA to OM, SVG Y graft off of LRA to D1, SVG to RPDA, SVG to unknown) with a patent ALATORRE graft and chronic total occlusion of all the aortic grafts at
their origin, but patent LRA and SVG Y graft with complicated flow pattern detailed below. The LAD is chronically diffusely diseased in its proximal midportion, ultimately chronically totally occluded after the small second diagonal, the circumflex
is chronically totally occluded in its proximal margin and the RCA is occluded at its midportion. There is an additional 70% lesion in the distal LAD, distal to the origin of D3 but proximal to the anastomosis of the ALATORRE graft.
2. The SVG to the RCA and the SVG to unknown artery are chronically totally occluded. The left radial artery is chronically totally occluded at its origin but patent in its proximal margin, including the Y graft origin to the first diagonal. The
patient's coronary blood flow is complicated and proceeds as follows: The ALATORRE graft supplies the LAD which backfills the third diagonal (through a 70% LAD stenosis). The SVG to the third diagonal is subsequently filled retrograde back to the level
of the chronic total occlusion of the left radial artery graft anastomosis. The left radial artery graft is subsequently filled from flow from the diagonal and supplies the obtuse marginal. The RPDA is supplied by collaterals from the left
circulation.
3. Moderately elevated filling pressures (LVEDP = 21 mmHg at 105.7 kg).
Procedure findings :
Discharge Plan
-
Patient Disposition: Home with Home Care
Discharge Diagnosis/Procedures: Acute hypoxic respiratory failure secondary to heart failure with mildly reduced ejection fraction, pneumonia due to upper respiratory symptoms, acute kidney injury likely secondary to contrast, coronary artery
disease, left maxillary sinusitis, hyperuricemia with possible gout flare because apparently extremities, diabetes mellitus type 2, normocytic anemia heme-negative, obesity
Condition: Fair
Diet: Diabetic, Carb Controlled
Activity: With assistance
Additional Activity: Assistance with one-step to enter home
Driving Restrictions: Not until seen by your Dr
Bathing Restrictions: None
Blood Work: CBC in 1 week with PCP
CMP in 1 week with PCP
Other Services: VN, PT and OT
Stand Alone Forms: DC Instructions- Cath/EP Lab
Referrals:
[facility]rem[facility] Mcpherson Visiting Nurse [Outside]
Abdifatah Parker MD [Family Provider] - in less than 1 week
Jass Omer MD [Active] - in two weeks
Alfonso Shannon MD [Non-Admitting Privileges] - in one to two weeks
Prescriptions:
New
Entresto 24-26 mg tablet
1 tab PO BID 30 Days Qty: 60 0RF
dapagliflozin propanediol [Farxiga] 10 mg tablet
10 mg PO DAILY Qty: 30 0RF
aspirin 81 mg Tablet,Delayed Release (Dr/Ec)
81 mg PO DAILY 30 Days Qty: 30 0RF
colchicine 0.6 mg Tablet
0.3 mg PO DAILY 30 Days Qty: 30 0RF
fenofibrate nanocrystallized 48 mg Tablet
48 mg PO DAILY 30 Days Qty: 30 0RF
acetaminophen 325 mg Tablet
650 mg PO Q6HPRN PRN (Reason: mild pain/ fever>100.5F) 30 Days Qty: 30 0RF
doxycycline hyclate 100 mg Capsule
100 mg PO Q12 7 Days Qty: 7 0RF
oxybutynin chloride 5 mg Tablet
5 mg PO BID 30 Days Qty: 30 0RF
Continued
furosemide 40 mg Tablet
40 mg PO DAILY 30 Days Qty: 30 0RF
atorvastatin 40 mg Tablet
40 mg PO HS 30 Days Qty: 30 0RF
clopidogrel 75 mg Tablet
75 mg PO DAILY 30 Days Qty: 30 0RF
amlodipine 5 mg Tablet
5 mg PO DAILY 30 Days Qty: 30 0RF
metformin 1,000 mg Tablet
1,000 mg PO BID 30 Days Qty: 30 0RF
lisinopril 10 mg Tablet
10 mg PO DAILY 30 Days Qty: 30 0RF
Ozempic 0.25 mg or 0.5 mg (2 mg/3 mL) Pen Injector
0.5 mg SC WE 1 Days Qty: 1 0RF
finasteride 5 mg Tablet
5 mg PO DAILY Qty: 30 0RF
metoprolol succinate 100 mg Tablet Extended Release 24 Hr
100 mg PO DAILY 30 Days Qty: 30 0RF
isosorbide mononitrate 60 mg Tablet Extended Release 24 Hr
60 mg PO DAILY Qty: 30 0RF
tamsulosin 0.4 mg Capsule
0.4 mg PO DAILY Qty: 30 0RF
Changed
sertraline 100 mg Tablet
30 mg PO DAILY Qty: 30 0RF
Discontinued
oxybutynin chloride 10 mg Tablet Extended Release 24hr
10 mg PO DAILY
meloxicam 15 mg Tablet
15 mg PO DAILY
acetaminophen [Tylenol Extra Strength] 500 mg Tablet
1,000 mg PO Q6HPRN PRN (Reason: mild pain)
glimepiride 4 mg Tablet
4 mg PO BID
pioglitazone 30 mg Tablet
30 mg PO DAILY
fenofibric acid 35 mg Tablet
35 mg PO DAILY
Discharge Orders:
Discharge Patient (As Directed); Ordered 12/24/24
Ordered By: Alan Holley
Care Plan Goals
Care Plan Goals:
Problem: Readiness for enhanced knowledge related to diagnosis and treatment plan
Goal: Understand your diagnosis and treatment plan needs, including medications if applicable.
Instructions: Know your diagnosis, underlying causes and treatment plan options, including medications if applicable. Consult with your health care team to learn about your diagnosis and treatment plan, including medications if applicable.
Discharge Date and Time
Discharge Date/Time: 12/24/24 17:25
Print Language: [email or web address]
== END 2024-12-24 17:25 | disposition home health service (06) | DRG 280 ==
LOC: IVU 20:36
PROVIDERS: Internal Medicine; Internal Medicine Cardiovascular Disease; Nurse Practitioner; Nurse Practitioner Family; Nurse Practitioner Gerontology; Registered Nurse; ADMITTING PHYSICIAN Internal Medicine; ATTENDING PHYSICIAN Internal Medicine; CONSULT PHYSICIAN Specialist; EMERGENCY PHYSICIAN Emergency Medicine; FAMILY PHYSICIAN Internal Medicine; OTHER PHYSICIAN Internal Medicine Cardiovascular Disease; OTHER PHYSICIAN Otolaryngology
PROC: B2111ZZ Fluoroscopy of Multiple Coronary Arteries using Low Osmolar Contrast (ICD-10-PCS; 2024-12-18)
PROC: B2131ZZ Fluoroscopy of Multiple Coronary Artery Bypass Grafts using Low Osmolar Contrast (ICD-10-PCS; 2024-12-18)
PROC: 4A023N7 Measurement of Cardiac Sampling and Pressure, Left Heart, Percutaneous Approach (ICD-10-PCS; 2024-12-18)
DX: I11.0 Hypertensive heart disease with heart failure (principal); I50.21 Acute systolic (congestive) heart failure; I21.4 Non-ST elevation (NSTEMI) myocardial infarction; J96.01 Acute respiratory failure with hypoxia; N17.9 Acute kidney failure, unspecified; E87.20 Acidosis, unspecified; I25.10 Atherosclerotic heart disease of native coronary artery without angina pectoris; E78.00 Pure hypercholesterolemia, unspecified; E11.9 Type 2 diabetes mellitus without complications; E66.9 Obesity, unspecified; Z68.36 Body mass index [BMI] 36.0-36.9, adult; T50.8X5A Adverse effect of diagnostic agents, initial encounter; N14.11 Contrast-induced nephropathy; Z95.1 Presence of aortocoronary bypass graft; J32.0 Chronic maxillary sinusitis; Z91.148 Patient's other noncompliance with medication regimen for other reason; I49.3 Ventricular premature depolarization; I27.20 Pulmonary hypertension, unspecified; Z79.899 Other long term (current) drug therapy; Z79.02 Long term (current) use of antithrombotics/antiplatelets; Z79.84 Long term (current) use of oral hypoglycemic drugs; D64.9 Anemia, unspecified; F41.9 Anxiety disorder, unspecified; N40.0 Benign prostatic hyperplasia without lower urinary tract symptoms; Z11.52 Encounter for screening for COVID-19
CPT/HCPCS: 70486; 71045; 71046; 76770; 80048; 80053; 80061; 81003; 81015; 82570; 82607; 82728; 82746; 82805; 82962; 83036; 83540; 83550; 83735; 83880; 84100; 84145; 84300; 84425; 84484; 84550; 85014; 85018; 85027; 85045; 85730; 86803; 87040; 87502; 87811; 93005; 93306; 93459; 94640; 96374; 96375; 97116; 97163; 97167; 99152; 99153; 99291; C1760; C1894; Q9950; Q9967